=== PATIENT | female | born 1950 | race Caucasian/White ===

== ENCOUNTER 2018-10-28 21:51 | Emergency (ER) | payer MEDICARE, OTHER ==
[~2018-10-28] VITALS: Ht 170.2 cm; Wt 108.9 kg
[~2018-10-28 21:51] MED LIST: ACHD5005 PO; ALPR0.254 PO; AMIT25TA9 PO; AZAT50TA PO; CLOP75TA28 PO; CYCL5TAB PO; ETAN50PE SC; FOLI1TAB10 PO; IBUP-2055 PO; METO-333 PO; ONDA4TAB11 PO; POTA10TA10 PO; PRED5TAB PO; SALS500T16 PO; SODI473S7 TOP; TRAM50TA2 PO; ZOLP5TAB7 PO
--- OUTSIDE RECORDS SUMMARY | 2018-10-28 21:55 | XMS REPORT | Clinical Summary ---
Author Author [facility] Organization [facility] Address Unknown Phone Unavailable Care Team Providers Care Plastic Sheets Supervisor Name Role Phone Karissa Springer MD PCP Unavailable Ron Julian DO Unavailable Radha Nobles APRN Unavailable Source Comments Some departments are not documenting in the electronic medical record. If you d o not see the information that you expected, contact Release of Information in [facility] [employer] Information Management department at [phone] for further assistan ce in locating additional records.[facility] Allergies Comments Active Allergy Reactions Severity Noted Date unspecified Ampicillin SEE COMMENTS Low 02/15/2015 unknown Latex SEE COMMENTS Low 02/14/2015 unknown Morphine SEE COMMENTS Low 02/14/2015 unknown Sulfa (Sulfonamide SEE COMMENTS Low 02/14/2015 Antibiotics) Medications End Date Status Medication Sig Dispensed Refills Start Date Active amitriptyline (ELAVIL) 75 Take 75 mg by 0 mg tablet mouth at bedtime daily. Active ondansetron (ZOFRAN ODT) Take 4 mg by 0 4 mg rapid dissolve mouth every 8 tablet hours as needed for Nausea. Active metoprolol (LOPRESSOR) 25 Take 25 mg by 0 mg tablet mouth daily. Active zolpidem (AMBIEN) 5 mg Take 5 mg by 0 tablet mouth at bedtime as needed for Sleep. Active ALPRAZolam (XANAX) 0.25 Take 0.25 mg 0 mg tablet by mouth three times daily as needed. Active potassium chloride SR Take 10 mEq 0 (K-DUR) 10 mEq tablet by mouth daily with breakfast. Active clopiDOGrel (PLAVIX) 75 Take 75 mg by 0 mg tablet mouth daily. Active azaTHIOprine (IMURAN) 50 Take 100 mg 0 mg tablet by mouth twice daily. Active ibuprofen (MOTRIN) 200 mg Take 400 mg 0 tablet by mouth twice daily as needed for Pain. Active vitamins, multi Take 1 Tab by 0 w/minerals 27-0.4 mg tab mouth daily. Active cyclobenzaprine Take 5 mg by 0 (FLEXERIL) 5 mg tablet mouth three times daily as needed for Muscle Cramps. Active etanercept(+) (ENBREL) 50 Inject 50 mg 0 mg/mL (0.98 mL) syrg into area(s) injection as directed every 7 days. Active predniSONE (DELTASONE) 5 Take 5-10 mg 0 mg tablet by mouth daily. Active salsalate (DISALCID) 500 Take 1,500 mg 0 mg tablet by mouth twice daily. Active melatonin 3 mg tab Take 1 Tab by 30 Tab 0 mouth at 5 bedtime daily. Active senna (SENOKOT) 8.6 mg Take 1 Tab by 60 Tab 1 tablet mouth twice 5 daily. Active polyethylene glycol 3350 Take 17 g by 1 Bottle 1 (GLYCOLAX; MIRALAX) 17 mouth daily. 5 gram/dose powder To help support regular bowel movements. Active oxyCODONE (ROXICODONE) 5 Take 1 Tab by 60 Tab 0 mg tablet mouth every 6 5 hours as needed for Pain Active Problems Problem Noted Date Delirium 02/19/2015 Agitation 02/19/2015 Overview: Psych consulted. Hx anxiety. Parastomal hernia 02/15/2015 Small bowel ischemia 02/15/2015 Colostomy care 02/15/2015 GLADYS (acute kidney injury) 02/15/2015 SBO (small bowel obstruction) 02/14/2015 Family History Medical History Relation Name Comments Cancer Brother Cancer Father Coronary Artery Disease Father Dementia Mother Diabetes Type II Mother Hypertension Sister Relation Name Status Comments Brother Father Mother Sister Social History Date Tobacco Use Types Packs/Day Years Used Former Smoker Cigarettes Drinks/Week oz/Week Comments Alcohol Use 0 Standard drinks or equivalent 0.0 Not Asked Sex Assigned at Date Recorded Not on file Industry Job Start Date Occupation Not on file Not on file Not on file Travel End Travel History Travel Start No recent travel history available. Last Filed Vital Signs Reading Time Taken Comments Vital Sign 131/92 05/08/2015 1:10 PM DISTILLER Blood Pressure 87 05/08/2015 1:10 PM DISTILLER Pulse 36.4 C (97.6 F) 05/08/2015 1:10 PM DISTILLER Temperature 16 05/08/2015 1:10 PM DISTILLER Respiratory Rate 100% 03/02/2015 5:05 AM CDT Oxygen Saturation - - Inhaled Oxygen Concentration 97.5 kg (215 lb) 05/08/2015 1:10 PM DISTILLER Weight 170 cm (5' 6.93") 05/08/2015 1:10 PM DISTILLER Height 33.75 05/08/2015 1:10 PM DISTILLER Body Mass Index Plan of Treatment Health Maintenance Due Date Last Done Comments HEPATITIS C SCREENING 1950 PHYSICAL (COMPREHENSIVE) 1957 EXAM DTAP/TDAP VACCINES (1 - 1968 Tdap) BREAST CANCER SCREENING 1990 COLORECTAL CANCER 2000 SCREENING SHINGLES RECOMBINANT 2000 VACCINE (1 of 2) OSTEOPOROSIS 12/23/2015 SCREENING/MONITORING PNEUMONIA (PCV13/PPSV23) 12/23/2015 VACCINES (1 of 2 - PCV13) INFLUENZA VACCINE 02/01/2019 Results Not on filefrom Last 3 Months Insurance Type Payer Benefit Subscriber ID Effective Phone Address Plan / Dates Group [place] xxxxxxxxxxxx 2014-P PREF CARE resent BLUE HMO [place] xxxxxxxxxxxx 2014-P [facility] resent SOLUTIONS Medicare BCBS BCBS xxxxxxxxxxxx 2014-P SUPPLEMENT resent 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 needed
--- OUTSIDE RECORDS SUMMARY | 2018-10-28 21:56 | XMS REPORT | Continuity of Care Document ---
Author Organization Unknown Address Unknown Allergies Active Description Code Type Severity Reaction Onset Reported/Identified Relationship to Patient Clinical Status Yes ampi ampi Mild N/A 03/02/2015 Yes ampicillin [id number] Drug Allergy Unknown HIVES 03/04/2015 Yes latex [id number] Drug Allergy Unknown BLISTERS 03/04/2015 Yes morphine [id number] Drug Allergy Unknown N/A 03/04/2015 Yes Sulfa (Sulfonamide Antibiotics) [id number] Drug Allergy Unknown HIVES 03/04/2015 Medications There is no data. Problems Date Dx Coded Attending Type Code Diagnosis Diagnosed By 09/04/2014 HANSEL MORAN 278.00 Obesity, unspecified 03/12/2015 JENNIFER MOSHER, JEANETTE E Ot D50.0 03/12/2015 JENNIFER MOSHER, JEANETTE E Ot E66.9 03/12/2015 JENNIFER MOSHER, JEANETTE E Ot F41.1 03/12/2015 JENNIFER MOSHER, JEANETTE E Ot I10 03/12/2015 JENNIFER MOSHER, JEANETTE E Ot M06.9 03/12/2015 JENNIFER MOSHER, JEANETTE E Ot T81.31XD 03/12/2015 JENNIFER MOSHER JEANETTE E Ot Z48.815 03/12/2015 JENNIFER MOSHER JEANETTE E Ot Z68.31 03/12/2015 JENNIFER MOSHER, JEANETTE E Ot Z85.038 03/12/2015 JEANETTE RODRIGUEZ MD E Ot Z93.3 Procedures Code Description Performed By Performed On 12LEKG 12 LEAD EKG 09/04/2014 ABC CBC WO DIFF 09/04/2014 ABG ARTERIAL BLOOD GAS 09/04/2014 BLDCU BLOOD CULTURE 09/04/2014 BMETPP BASIC METABOLIC PANEL 09/04/2014 CBC CBC WITH DIFF 09/04/2014 CMETPP COMPREHENSIVE METABOLIC PANEL 09/04/[address] ANGIOGRAPHY CHEST ABD 09/04/[address] ANGIOGRAPHY CHEST AND CT ABD PELVIS W CONTRAST 09/04/2014 GLUPOC GLUCOSE POCT 09/04/2014 HIST SURGICAL PATHOLOGY 09/04/2014 MG MAGNESIUM SERUM 09/04/2014 PHOS PHOSPHORUS 09/04/2014 PREALB PREALBUMIN 09/04/2014 RESPL SPUTUM / RESPIRATORY CULTURE AND GRAM STAIN 09/04/2014 TRIG TRIGLYCERIDES 09/04/2014 UA URINALYSIS AUTOMATED W MICROSCOPY 09/04/2014 UCULT URINE CULTURE 09/04/2014 Results Test Result Range CBC WO DIFF - 08/23/14 14:36 WBC 10.7 10*3/uL 4.3-10.8 RBC 4.53 10*6/uL 4.20-5.40 HGB 12.2 g/dL 12.0-16.0 HCT 38.7 % 37-47 MCV 85 fL 81-99 MCH 27 pg 26-34 MCHC 32 g/dL 31-37 PLATELET COUNT 199 10*3/uL 150-400 RDWCV 13.9 % 11.5-14.5 COMPREHENSIVE METABOLIC PANEL - 08/23/14 14:36 POTASSIUM 3.8 mmol/L 3.5-5.1 CALCIUM 9.3 mg/dL 8.6-10.6 GLUCOSE 99 mg/dL 80-115 BUN 19 mg/dL 8-22 CREATININE 1.1 mg/dL 0.6-1.1 SODIUM 140 mmol/L 136-145 CHLORIDE 104 mmol/L 98-110 CO2 24 mmol/L 22-29 GFR ESTIMATED NOT AFR/AM 50 GFR ESTIMATED IF AFR/AM >60 ALT-SGPT 28 U/L 0-55 AST-SGOT 27 U/L 5-34 TOTAL PROTEIN,SERUM 6.8 g/dL 6-8.3 ALBUMIN 3.6 g/dL 3.6-5.3 ALKALINE PHOSPHATASE 128 U/L 40-150 TOTAL BILIRUBIN 0.9 mg/dL 0.2-1.2 ANION GAP 12 5-15 GLOBULIN, CALCULATED 3.2 g/dL A/G RATIO 1.1 ratio 1-1.8 BASIC METABOLIC PANEL - 08/24/14 05:46 POTASSIUM 4.4 mmol/L 3.5-5.1 CALCIUM 7.9 mg/dL 8.6-10.6 GLUCOSE 122 mg/dL 80-115 BUN 16 mg/dL 8-22 CREATININE 0.8 mg/dL 0.6-1.1 SODIUM 140 mmol/L 136-145 CHLORIDE 105 mmol/L 98-110 CO2 26 mmol/L 22-29 GFR ESTIMATED NOT AFR/AM >60 GFR ESTIMATED IF AFR/AM >60 ANION GAP 9 5-15 CBC WITH DIFF - 08/24/14 05:46 WBC 9.2 10*3/uL 4.3-10.8 RBC 3.53 10*6/uL 4.20-5.40 HGB 10.0 g/dL 12.0-16.0 HCT 30.5 % 37-47 MCV 86 fL 81-99 MCH 28 pg 26-34 MCHC 33 g/dL 31-37 PLATELET COUNT 157 10*3/uL 150-400 RDWCV 13.7 % 11.5-14.5 DIFF TYPE MANUAL DIFF SEG NEUTROPHILS 68 % 36-66 BAND NEUTROPHILS 27 % 5-11 LYMPHOCYTES 3 % 24-44 NEUTROPHILS, ABSOLUTE 8.7 10*3/uL 1.55-7.13 LYMPHOCYTES, ABSOLUTE 0.3 10*3/uL 1.0-4.8 RBC MORPHOLOGY SEE NOTES PLATELET ESTIMATE SEE NOTES MONOCYTES 2 % 1-10 MONOCYTES, ABSOLUTE 0.2 10*3/uL 0.4-1.08 CBC WO DIFF - 08/25/14 05:37 WBC 9.3 10*3/uL 4.0-10.8 RBC 2.96 10*6/uL 4.20-5.40 HGB 8.6 g/dL 12.0-16.0 HCT 26.5 % 37-47 MCV 90 fL 81-99 MCH 29 pg 26-34 MCHC 32 g/dL 31-37 PLATELET COUNT 109 10*3/uL 150-400 RDWCV 14.2 % 11.5-14.5 BASIC METABOLIC PANEL - 08/25/14 05:37 POTASSIUM 4.7 mmol/L 3.5-5.1 CALCIUM 7.8 mg/dL 8.6-10.6 GLUCOSE 82 mg/dL 80-115 BUN 26 mg/dL 8-22 CREATININE 2.1 mg/dL 0.6-1.1 SODIUM 135 mmol/L 136-145 CHLORIDE 106 mmol/L 98-110 CO2 18 mmol/L 22-29 GFR ESTIMATED NOT AFR/AM 24 GFR ESTIMATED IF AFR/AM 29 ANION GAP 11 5-15 BASIC METABOLIC PANEL - 08/25/14 15:54 POTASSIUM 4.3 mmol/L 3.5-5.1 CALCIUM 8.0 mg/dL 8.6-10.6 GLUCOSE 97 mg/dL 80-115 BUN 20 mg/dL 8-22 CREATININE 1.3 mg/dL 0.6-1.1 SODIUM 134 mmol/L 136-145 CHLORIDE 106 mmol/L 98-110 CO2 19 mmol/L 22-29 GFR ESTIMATED NOT AFR/AM 41 GFR ESTIMATED IF AFR/AM 50 ANION GAP 9 5-15 CBC WO DIFF - 08/26/14 07:11 WBC 11.3 10*3/uL 4.0-10.8 RBC 3.27 10*6/uL 4.20-5.40 HGB 9.3 g/dL 12.0-16.0 HCT 29.1 % 37-47 MCV 89 fL 81-99 MCH 28 pg 26-34 MCHC 32 g/dL 31-37 PLATELET COUNT 108 10*3/uL 150-400 RDWCV 14.3 % 11.5-14.5 BASIC METABOLIC PANEL - 08/26/14 07:11 POTASSIUM 3.8 mmol/L 3.5-5.1 CALCIUM 8.2 mg/dL 8.6-10.6 GLUCOSE 88 mg/dL 80-115 BUN 11 mg/dL 8-22 CREATININE 0.7 mg/dL 0.6-1.1 SODIUM 137 mmol/L 136-145 CHLORIDE 106 mmol/L 98-110 CO2 20 mmol/L 22-29 GFR ESTIMATED NOT AFR/AM >60 GFR ESTIMATED IF AFR/AM >60 ANION GAP 11 5-15 BLOOD CULTURE - 08/26/14 12:24 SOURCE SOURCE: BLOOD REQUISITION NOTE REQUISITION NOTE: PERIPHERAL BLOOD CULTURE RESULTS CULTURE RESULTS: NO GROWTH 5 DAYS REPORT STATUS REPORT STATUS: 08/31/2014 FINAL BLOOD CULTURE - 08/26/14 12:40 SOURCE SOURCE: BLOOD REQUISITION NOTE REQUISITION NOTE: LOW VOLUME CULTURE RESULTS CULTURE RESULTS: NO GROWTH 5 DAYS REPORT STATUS REPORT STATUS: 08/31/2014 FINAL ARTERIAL BLOOD GAS - 08/26/14 17:48 METHEMOGLOBIN 0.2 % 0-3.0 PH 7.435 7.350-7.450 PCO2 35.6 mmHg 35.0-45.0 PO2 154.2 mmHg 80.0-90.0 BICARB (ART) 23.4 mmol/L 22.0-26.0 BASE EXCESS -0.5 mmol/L -2.0-2.0 OXY HEMOGLOBIN 98.1 % 94.0-99.0 CO HEMOGLOBIN (ART) 0.5 % 0-3.0 O2 CONTENT 15.6 mL/dL 15.0-23.0 CO2 CONTENT 24.5 mmol/L 24.0-28.0 DRAW TIME (ART) 08/26/2014 17:48 ANALYZE TIME (ART) 08/26/2014 17:48 URINALYSIS AUTOMATED W MICROSCOPY - 08/26/14 18:46 SPECIMEN BAGGED URINE COLOR YELLOW APPEARANCE CLEAR CLEAR SPECIFIC GRAVITY 1.046 1.005-1.030 PH, URINE 6.5 5.0-9.0 PROTEIN SMALL mg/dL NEGATIVE GLUC NEGATIVE mg/dL NEGATIVE KETONES MODERATE mg/dL NEGATIVE BILIRUBIN NEGATIVE NEGATIVE BLOOD LARGE NEGATIVE NITRITE NEGATIVE NEGATIVE UROBILINOGEN NORMAL mg/dL NORMAL LEUKOCYTE ESTERASE NEGATIVE NEGATIVE WBC'S 2 [HPF] 0-4 RBC'S >50 [HPF] 0-1 MUCUS RARE [LPF] ACETONE MODERATE URINE CULTURE - 08/26/14 18:47 SOURCE SOURCE: CATH GILLETTE REQUISITION NOTE REQUISITION NOTE: NONE CULTURE RESULTS CULTURE RESULTS: NO FURTHER WORKUP REPORT STATUS REPORT STATUS: 08/28/2014 FINAL CBC WO DIFF - 08/26/14 19:29 WBC 12.1 10*3/uL 4.0-10.8 RBC 3.48 10*6/uL 4.20-5.40 HGB 9.8 g/dL 12.0-16.0 HCT 31.0 % 37-47 MCV 89 fL 81-99 MCH 28 pg 26-34 MCHC 32 g/dL 31-37 PLATELET COUNT 109 10*3/uL 150-400 RDWCV 14.0 % 11.5-14.5 BASIC METABOLIC PANEL - 08/26/14 19:29 POTASSIUM 4.0 mmol/L 3.5-5.1 CALCIUM 8.4 mg/dL 8.6-10.6 GLUCOSE 88 mg/dL 80-115 BUN 10 mg/dL 8-22 CREATININE 0.7 mg/dL 0.6-1.1 SODIUM 139 mmol/L 136-145 CHLORIDE 106 mmol/L 98-110 CO2 22 mmol/L 22-29 GFR ESTIMATED NOT AFR/AM >60 GFR ESTIMATED IF AFR/AM >60 ANION GAP 11 5-15 BASIC METABOLIC PANEL - 08/27/14 05:12 POTASSIUM 4.2 mmol/L 3.5-5.1 CALCIUM 8.1 mg/dL 8.6-10.6 GLUCOSE 79 mg/dL 80-115 BUN 10 mg/dL 8-22 CREATININE 0.7 mg/dL 0.6-1.1 SODIUM 138 mmol/L 136-145 CHLORIDE 103 mmol/L 98-110 CO2 23 mmol/L 22- GFR ESTIMATED NOT AFR/AM >60 GFR ESTIMATED IF AFR/AM >60 ANION GAP 12 5-15 CBC WO DIFF - 08/27/14 05:12 WBC 9.8 10*3/uL 4.0-10.8 RBC 3.23 10*6/uL 4.20-5.40 HGB 9.2 g/dL 12.0-16.0 HCT 28.7 % 37-47 MCV 89 fL 81-99 MCH 29 pg 26-34 MCHC 32 g/dL 31-37 PLATELET COUNT 100 10*3/uL 150-400 RDWCV 13.9 % 11.5-14.5 GLUCOSE POCT - 08/27/14 21:07 GLUCOSE BY METER 82 mg/dL 70-115 BASIC METABOLIC PANEL - 08/28/14 08:28 POTASSIUM 3.3 mmol/L 3.5-5.1 CALCIUM 7.9 mg/dL 8.6-10.6 GLUCOSE 85 mg/dL 80-115 BUN 11 mg/dL 8-22 CREATININE 0.6 mg/dL 0.6-1.1 SODIUM 140 mmol/L 136-145 CHLORIDE 102 mmol/L 98-110 CO2 24 mmol/L - GFR ESTIMATED NOT AFR/AM >60 GFR ESTIMATED IF AFR/AM >60 ANION GAP 14 5-15 COMPREHENSIVE METABOLIC PANEL - 08/30/14 04:00 POTASSIUM 3.9 mmol/L 3.5-5.1 CALCIUM 8.6 mg/dL 8.6-10.6 GLUCOSE 107 mg/dL 80-115 BUN 16 mg/dL 8-22 CREATININE 0.6 mg/dL 0.6-1.1 SODIUM 140 mmol/L 136-145 CHLORIDE 102 mmol/L 98-110 CO2 26 mmol/L - GFR ESTIMATED NOT AFR/AM >60 GFR ESTIMATED IF AFR/AM >60 ALT-SGPT 19 U/L 0-55 AST-SGOT 28 U/L 5-34 TOTAL PROTEIN,SERUM 5.4 g/dL 6-8.3 ALBUMIN 2.9 g/dL 3.6-5.3 ALKALINE PHOSPHATASE 67 U/L 40-150 TOTAL BILIRUBIN 0.5 mg/dL 0.2-1.2 ANION GAP 12 5-15 GLOBULIN, CALCULATED 2.5 g/dL A/G RATIO 1.2 ratio 1-1.8 CBC WITH DIFF - 08/30/14 09:27 WBC 7.9 10*3/uL 4.3-10.8 RBC 3.41 10*6/uL 4.20-5.40 HGB 9.1 g/dL 12.0-16.0 HCT 29.4 % 37-47 MCV 86 fL 81-99 MCH 27 pg 26-34 MCHC 31 g/dL 31-37 PLATELET COUNT 127 10*3/uL 150-400 RDWCV 14.0 % 11.5-14.5 DIFF TYPE AUTOMATED DIFF NEUTROPHIL % 84 % 36-66 LYMPHOCYTE % 12 % 24-44 MONOCYTE % 3 % 1-10 EOSINOPHIL % 2 % 0-6 BASOPHIL % 0 % 0-2 ABS. NEUTROPHILS 6.6 10*3/uL 1.55-7.13 ABS. LYMPHOCYTES 0.9 10*3/uL 1.0-4.8 ABS. MONOCYTES 0.2 10*3/uL 0.4-1.08 ABS. EOSINOPHILS 0.1 10*3/uL 0.0-0.65 ABS. BASOPHILS 0.0 10*3/uL 0.0-0.11 ABSOLUTE NUCLEATED RBC 0.00 10*3/uL PERCENT NUCLEATED RBC 0 MAGNESIUM SERUM - 08/30/14 09:35 MAGNESIUM 2.1 mg/dL 1.4-2.1 PHOSPHORUS - 08/30/14 09:35 PHOSPHORUS 3.5 mg/dL 2.3-4.7 TRIGLYCERIDES - 08/30/14 09:35 TRIGLYCERIDES 150 mg/dL 20-170 PREALBUMIN - 08/30/14 09:35 PREALBUMIN 11.0 mg/dL 14.0-37.0 GLUCOSE POCT - 08/31/14 00:01 GLUCOSE BY METER 92 mg/dL 70-115 GLUCOSE POCT - 08/31/14 06:22 GLUCOSE BY METER 82 mg/dL 70-115 CBC WO DIFF - 08/31/14 06:22 WBC 6.5 10*3/uL 4.0-10.8 RBC 3.60 10*6/uL 4.20-5.40 HGB 10.3 g/dL 12.0-16.0 HCT 31.8 % 37-47 MCV 88 fL 81-99 MCH 29 pg 26-34 MCHC 32 g/dL 31-37 PLATELET COUNT 106 10*3/uL 150-400 RDWCV 14.3 % 11.5-14.5 BASIC METABOLIC PANEL - 08/31/14 06:22 POTASSIUM 3.9 mmol/L 3.5-5.1 CALCIUM 8.7 mg/dL 8.6-10.6 GLUCOSE 99 mg/dL 80-115 BUN 15 mg/dL 8-22 CREATININE 0.7 mg/dL 0.6-1.1 SODIUM 140 mmol/L 136-145 CHLORIDE 102 mmol/L 98-110 CO2 27 mmol/L 22- GFR ESTIMATED NOT AFR/AM >60 GFR ESTIMATED IF AFR/AM >60 ANION GAP 11 5-15 MAGNESIUM SERUM - 08/31/14 06:22 MAGNESIUM 2.0 mg/dL 1.4-2.1 PHOSPHORUS - 08/31/14 06:22 PHOSPHORUS 3.5 mg/dL 2.3-4.7 GLUCOSE POCT - 08/31/14 12:00 GLUCOSE BY METER 120 mg/dL 70-115 GLUCOSE POCT - 08/31/14 18:04 GLUCOSE BY METER 88 mg/dL 70-115 GLUCOSE POCT - 08/31/14 23:57 GLUCOSE BY METER 94 mg/dL 70-115 BASIC METABOLIC PANEL - 09/01/14 04:00 POTASSIUM 3.8 mmol/L 3.5-5.1 CALCIUM 8.6 mg/dL 8.6-10.6 GLUCOSE 99 mg/dL 80-115 BUN 15 mg/dL 8-22 CREATININE 0.6 mg/dL 0.6-1.1 SODIUM 137 mmol/L 136-145 CHLORIDE 102 mmol/L 98-110 CO2 28 mmol/L GFR ESTIMATED NOT AFR/AM >60 GFR ESTIMATED IF AFR/AM >60 ANION GAP 7 5-15 MAGNESIUM SERUM - 09/01/14 04:00 MAGNESIUM 2.1 mg/dL 1.4-2.1 PHOSPHORUS - 09/01/14 04:00 PHOSPHORUS 3.9 mg/dL 2.3-4.7 GLUCOSE POCT - 09/01/14 12:18 GLUCOSE BY METER 75 mg/dL 70-115 GLUCOSE POCT - 09/01/14 17:54 GLUCOSE BY METER 70 mg/dL 70-115 GLUCOSE POCT - 09/02/14 01:29 GLUCOSE BY METER 133 mg/dL 70-115 BASIC METABOLIC PANEL - 09/02/14 06:00 POTASSIUM 3.8 mmol/L 3.5-5.1 CALCIUM 8.8 mg/dL 8.6-10.6 GLUCOSE 103 mg/dL 80-115 BUN 21 mg/dL 8-22 CREATININE 0.7 mg/dL 0.6-1.1 SODIUM 140 mmol/L 136-145 CHLORIDE 98 mmol/L 98-110 CO2 30 mmol/L 22-29 GFR ESTIMATED NOT AFR/AM >60 GFR ESTIMATED IF AFR/AM >60 ANION GAP 12 5-15 MAGNESIUM SERUM - 09/02/14 06:00 MAGNESIUM 2.3 mg/dL 1.4-2.1 PHOSPHORUS - 09/02/14 06:00 PHOSPHORUS 4.1 mg/dL 2.3-4.7 GLUCOSE POCT - 09/02/14 06:25 GLUCOSE BY METER 98 mg/dL 70-115 GLUCOSE POCT - 09/02/14 12:26 GLUCOSE BY METER 90 mg/dL 70-115 GLUCOSE POCT - 09/02/14 18:18 GLUCOSE BY METER 92 mg/dL 70-115 GLUCOSE POCT - 09/03/14 00:18 GLUCOSE BY METER 116 mg/dL 70-115 GLUCOSE POCT - 09/03/14 06:16 GLUCOSE BY METER 118 mg/dL 70-115 GLUCOSE POCT - 09/03/14 15:03 GLUCOSE BY METER 95 mg/dL 70-115 GLUCOSE POCT - 09/03/14 17:44 GLUCOSE BY METER 107 mg/dL 70-115 GLUCOSE POCT - 09/04/14 00:03 GLUCOSE BY METER 131 mg/dL 70-115 GLUCOSE POCT - 09/04/14 06:32 GLUCOSE BY METER 98 mg/dL 70-115 COMPREHENSIVE METABOLIC PANEL - 09/04/14 06:53 POTASSIUM 3.1 mmol/L 3.5-5.1 CALCIUM 8.8 mg/dL 8.6-10.6 GLUCOSE 105 mg/dL 80-115 BUN 39 mg/dL 8-22 CREATININE 1.0 mg/dL 0.6-1.1 SODIUM 135 mmol/L 136-145 CHLORIDE 92 mmol/L 98-110 CO2 32 mmol/L 22-29 GFR ESTIMATED NOT AFR/AM 56 GFR ESTIMATED IF AFR/AM >60 ALT-SGPT 19 U/L 0-55 AST-SGOT 25 U/L 5-34 TOTAL PROTEIN,SERUM 6.5 g/dL 6-8.3 ALBUMIN 3.3 g/dL 3.6-5.3 ALKALINE PHOSPHATASE 89 U/L 40-150 TOTAL BILIRUBIN 0.5 mg/dL 0.2-1.2 ANION GAP 11 5-15 GLOBULIN, CALCULATED 3.2 g/dL A/G RATIO 1.0 ratio 1-1.8 MAGNESIUM SERUM - 09/04/14 06:53 MAGNESIUM 2.4 mg/dL 1.4-2.1 PHOSPHORUS - 09/04/14 06:53 PHOSPHORUS 4.8 mg/dL 2.3-4.7 TRIGLYCERIDES - 09/04/14 06:53 TRIGLYCERIDES 175 mg/dL 20-170 FOLATE (FOLIC ACID) - 08/05/18 12:24 FOLATE, SERUM >24.0 ng/mL NRG TSH - 08/05/18 12:24 TSH 1.40 mIU/L 0.40-4.50 TEST AUTHORIZATION - 08/05/18 12:24 TEST NAME: FOLATE, SERUM IRON, TIBC AND NRG TEST CODE: [id number] NRG CLIENT CONTACT: /PARVEEN Hancock [facility] NRG REPORT ALWAYS MESSAGE SIGNATURE NRG COMMENT NRG ANEMIA PANEL - 09/03/18 13:14 IRON, TOTAL 107 mcg/dL 45-160 FERRITIN 52 ng/mL 20-288 IRON BINDING CAPACITY 316 mcg/dL (calc) 250-450 % SATURATION 34 % (calc) 11-50 CMP - 09/03/18 13:14 GLUCOSE 99 mg/dL 65-99 UREA NITROGEN (BUN) 15 mg/dL 7-25 CREATININE 0.99 mg/dL 0.50-0.99 eGFR NON-AFR. ERITREAN 59 mL/min/1.73m2 > OR=60 eGFR 68 mL/min/1.73m2 > OR=60 BUN/CREATININE RATIO NOT APPLICABLE (calc) 6-22 SODIUM 141 mmol/L 135-146 POTASSIUM 3.9 mmol/L 3.5-5.3 CHLORIDE 103 mmol/L 98-110 CARBON DIOXIDE 31 mmol/L 20-32 CALCIUM 9.1 mg/dL 8.6-10.4 PROTEIN, TOTAL 7.1 g/dL 6.1-8.1 ALBUMIN 4.1 g/dL 3.6-5.1 GLOBULIN 3.0 g/dL (calc) 1.9-3.7 ALBUMIN/GLOBULIN RATIO 1.4 (calc) 1.0-2.5 BILIRUBIN, TOTAL 0.6 mg/dL 0.2-1.2 ALKALINE PHOSPHATASE 88 U/L 33-130 AST 19 U/L 10-35 ALT 9 U/L 6-29 FOLATE (FOLIC ACID) - 09/03/18 13:14 FOLATE, SERUM >24.0 ng/mL NRG Encounters ACCT No. Visit Date/Time Discharge Status Pt. Type Provider Facility Loc./Unit Complaint [id number] 09/16/2018 10:30:00 09/16/2018 23:59:59 [id number] 09/03/2018 13:00:00 Document Registration [id number] 08/05/2018 11:20:00 Document Registration [id number] 08/23/2014 14:04:00 09/04/2014 10:46:00 DIS Inpatient [facility] F7MED [id number] 07/26/2014 09:28:00 07/26/2014 12:53:00 DIS Inpatient GABBY TURNER [facility] FEN [id number] 06/02/2014 10:20:43 06/02/2014 23:59:00 [facility] [id number] 01/11/2014 09:11:14 01/11/2014 15:19:00 DIS Outpatient [facility] FCT [id number] 01/11/2014 09:00:06 01/11/2014 09:10:00 DIS Outpatient GUNNAR SUAREZBOOMAR[facility] FOPMO [id number] 12/09/2013 10:27:00 12/10/2013 09:57:00 DIS Inpatient [facility] FPSURG [id number] 03/02/2015 14:28:00 03/12/2015 14:45:00 DIS Inpatient JENNIFER MOSHER, JEANETTE Neely [facility] IRF
[2018-10-28] MEDS ORDERED: ONDANSETRON 4 MG/2 ML (SDV) Z0FRAN IVP ONE (22:15)
[2018-10-28] MEDS ORDERED: NS IV 1000 ML 1,000 ML IV SCH (22:15)
[2018-10-28 22:21] LABS: BASOPHILS % (AUTO) 0 % (0-10); EOSINOPHILS % (AUTO) 2 % (0-10); HEMATOCRIT 33 % (35-52); HEMOGLOBIN 10.6 G/DL (11.5-16.0); LYMPHOCYTES % (AUTO) 18 % (12-44); MEAN CORPUSCULAR HEMOGLOBIN 32 PG (25-34); MEAN CORPUSCULAR HGB CONC 33 G/DL (32-36); MEAN CORPUSCULAR VOLUME 99 FL (80-99); MEAN PLATELET VOLUME 10.3 FL (7.4-10.4); MONOCYTES % (AUTO) 7 % (0-12); NEUTROPHILS % (AUTO) 72 % (42-75); PLATELET COUNT 164 10^3/uL (130-400); RED CELL DISTRIBUTION WIDTH 15.2 % (10.0-14.5); WHITE BLOOD COUNT 5.1 10^3/uL (4.3-11.0)
[2018-10-28 22:22] LABS: EOSINOPHILS # (AUTO) 0.1 10^3/uL (0.0-0.3); LYMPHOCYTES # (AUTO) 0.9 X 10^3 (1.0-4.0); MONOCYTES # (AUTO) 0.4 X 10^3 (0.0-1.0); NEUTROPHILS # (AUTO) 3.7 X 10^3 (1.8-7.8)
[2018-10-28 22:25] VITALS: BP_SYST 125; BP_SYST 94; BP_DIAS 68; BP_DIAS 73
--- NOTE | 2018-10-28 22:26 | NUR ---
Orthostatic Vitals obtained. Pt. was able to tolerate supine and seated position however was unable to maintain a standing position without feeling increasingly weak.
--- NOTE | 2018-10-28 22:26 | ED General ---
General Chief Complaint: Dizziness/Syncope Stated Complaint: ANXIETY, VERTIGO, VOMITING Nursing Triage Note: Patient advises she has been feeling anxious since approximately 10am this morning secondary to dizziness. She advises that she has had issues with vertigo in the past and states that she began vomiting this evening which prompted her to call EMS. Nursing Sepsis Screen: No Definite Risk Source of Information: Patient, EMS History of Present Illness Date Seen by Provider: Oct 28, 2018 Time Seen by Provider: 21:51 Initial Comments Patient is a 67-year-old female presenting with complaints of dizziness that has been present since around 11 AM. She reports that this feels similar to when she has had vertigo in the past. She had tried taking some old Xanax pills that she had since it hadn't helped with her vertigo in the past. She thought that it has helped some at home but this evening she was feeling worse again. The dizziness and vertigo seems to be worse when she stands up. She also has some dizziness just laying in the bed though. She states that she has not had any fever or chills. She has had similar symptoms in the past and been told that she had fluid in her ears. She started having nausea and vomiting this evening as well. She does feel anxious with this and is concerned she might be having another st roke. She denies having pain anywhere. Allergies and Home Medications Allergies Coded Allergies: Sulfa (Sulfonamide Antibiotics) (Verified Allergy, Unknown, HIVES, 10/28/18) ampicillin (Verified Allergy, Unknown, HIVES, 10/28/18) latex (Verified Allergy, Unknown, BLISTERS, 10/28/18) morphine (Verified Allergy, Unknown, 10/28/18) Home Medications Alprazolam 0.25 Mg Tablet, 0.25 MG PO TID PRN for ANXIETY, (Reported) Amitriptyline HCl 25 Mg Tablet, 75 MG PO HS, (Reported) Azathioprine 50 Mg Tablet, 100 MG PO BID, (Reported) Ciprofloxacin HCl 250 Mg Tablet, 250 MG PO BID Prescribed by: BERNA MOE on 10/29/18 0126 Clopidogrel Bisulfate 75 Mg Tablet, 75 MG PO DAILY, (Reported) Cyclobenzaprine HCl 5 Mg Tablet, 5 MG PO TID PRN for MUSCLE CRAMPS, (Reported) Ibuprofen 200 Mg Tablet, 400 MG PO BID PRN for PAIN, (Reported) Meclizine HCl 25 Mg Tab.chew, 25 MG PO TID PRN for DIZZINESS Prescribed by: BERNA MOE on 10/29/18 0126 Metoprolol Tartrate 25 Mg Tablet, 25 MG PO DAILY, (Reported) Potassium Chloride 10 Meq Tablet.er, 10 MEQ PO DAILY, (Reported) WITH BREAKFAST Prednisone 5 Mg Tablet, 5-10 MG PO DAILY, (Reported) PATIENT CAN TAKE UP TO 2 TABS DEPENDING ON HOW SHE IS FEELING (PAIN). HAD BEEN OFF FOR APPROX. 3 WEEKS. Patient Home Medication List Home Medication List Reviewed: Yes Review of Systems Review of Systems Constitutional: No chills; dizziness; No fever, No weakness EENTM: No ear discharge, No hearing loss, No ear pain, No blurred vision, No double vision, No dental problems, No epistaxis, No nose congestion Respiratory: No cough, No dyspnea on exertion, No short of breath Cardiovascular: No chest pain, No palpitations Gastrointestinal: No abdominal pain; nausea, vomiting (with the dizziness tonight) Genitourinary: No dysuria, No frequency Musculoskeletal: no symptoms reported Skin: no symptoms reported Psychiatric/Neurological: Anxiety; Denies Headache Hematologic/Lymphatic: No Symptoms Reported Past Nmmokiv-Cbobno-Qtswwr Hx Past Med/Social Hx: Reviewed Nursing Past Med/Soc Hx Patient Social History Alcohol Use: Denies Use Recreational Drug Use: No Smoking Status: Never a Smoker Recent Foreign Travel: No Contact w/Someone Who Travel: No Recent Infectious Disease Expo: No Recent Hopitalizations: No Immunizations Up To Date Date of Pneumonia Vaccine: September 28, 2014 Date of Influenza Vaccine: Feb 05, 2015 Seasonal Allergies Seasonal Allergies: No Past Medical History Surgeries: Yes (colostomy) Respiratory: No Currently Using CPAP: No Currently Using BIPAP: No Cardiac: Yes Neurological: Yes Reproductive Disorders: Yes HIV/AIDS: No Gastrointestinal: Yes Abdominal Hernia, Gastroesophageal Reflux, Gastrointestinal Bleed, Chronic Diarrhea, Polyps Musculoskeletal: Yes Arthritis, Rheumatoid Arthritis Endocrine: No Cancer: Yes (hysterectomyCA) Colon Psychosocial: Yes Anxiety Integumentary: No Blood Disorders: No Adverse Reaction/Blood Tranf: No Family Medical History Abdominal aortic aneurysm Alcoholism G8 BROTHER (22) G8 BROTHER (17) Alzheimer's disease 19 MOTHER (195 2012) Cataracts 19 MOTHER (2010) Deafness or hearing loss 19 MOTHER (HARD OF HEARING ) Dementia 19 MOTHER Diabetes mellitus 19 FATHER 19 MOTHER Drug abuse G8 BROTHER G8 BROTHER Gastroenteritis 19 MOTHER Headache disorder 19 MOTHER G8 BROTHER Hypercholesterolemia G8 SISTER Myocardial infarction 19 FATHER (IN HIS 60) Osteoporosis 19 MOTHER Prostate cancer 19 FATHER Physical Exam Vital Signs Vital Signs - First Documented 10/28/18 22:05 Temp 96.9 Pulse 80 Resp 18 B/P (MAP) 127/77 (94) Pulse Ox 94 O2 Delivery Room Air Capillary Refill : Less Than 3 Seconds Height, Weight, BMI Height: 5'7.00" Weight: 240lbs. 12.8oz. 108.387027fg; BMI Method:Stated General Appearance: No Apparent Distress, WD/WN HEENT: PERRL/EOMI, TMs Normal, Pharynx Normal Neck: Full Range of Motion, Non Tender, Supple Respiratory: Chest Non Tender, Lungs Clear, Normal Breath Sounds Cardiovascular: Regular Rate, Rhythm, No Murmur, Normal Peripheral Pulses Gastrointestinal: No Pulsatile Mass, Non Tender, Soft Extremity: Normal Capillary Refill, Normal Inspection, Normal Range of Motion, Non Tender, No Calf Tenderness Neurologic/Psychiatric: Alert, Oriented x3 Skin: Normal Color, Warm/Dry Progress/Results/Core Measures Suspected Sepsis Recent Fever Within 48 Hours: No Infection Criteria Present: None New/Unexplained Altered Menta: No Sepsis Screen: No Definite Risk SIRS Temperature:96.9 Pulse: 80 Respiratory Rate: 18 Laboratory Tests 10/28/18 21:56: White Blood Count 5.1 Blood Pressure 127 /77 Mean: 94 Laboratory Tests 10/28/18 21:56: Creatinine 0.90, Platelet Count 164, Total Bilirubin 0.7 Results/Orders Lab Results Laboratory Tests Test 10/28/18 21:56 10/28/18 23:39 Range/Units White Blood Count 5.1 4.3-11.0 10^3/uL Red Blood Count 3.27 L 4.35-5.85 10^6/uL Hemoglobin 10.6 L 11.5-16.0 G/DL Hematocrit 33 L 35-52 % Mean Corpuscular Volume 99 80-99 FL Mean Corpuscular Hemoglobin 32 25-34 PG Mean Corpuscular Hemoglobin Concent 33 32-36 G/DL Red Cell Distribution Width 15.2 H 10.0-14.5 % Platelet Count 164 130-400 10^3/uL Mean Platelet Volume 10.3 7.4-10.4 FL Neutrophils (%) (Auto) 72 42-75 % Lymphocytes (%) (Auto) 18 12-44 % Monocytes (%) (Auto) 7 0-12 % Eosinophils (%) (Auto) 2 0-10 % Basophils (%) (Auto) 0 0-10 % Neutrophils # (Auto) 3.7 1.8-7.8 X 10^3 Lymphocytes # (Auto) 0.9 L 1.0-4.0 X 10^3 Monocytes # (Auto) 0.4 0.0-1.0 X 10^3 Eosinophils # (Auto) 0.1 0.0-0.3 10^3/uL Basophils # (Auto) 0.0 0.0-0.1 10^3/uL Sodium Level 138 135-145 MMOL/L Potassium Level 3.5 L 3.6-5.0 MMOL/L Chloride Level 98 98-107 MMOL/L Carbon Dioxide Level 22 21-32 MMOL/L Anion Gap 18 H 5-14 MMOL/L Blood Urea Nitrogen 22 H 7-18 MG/DL Creatinine 0.90 0.60-1.30 MG/DL Estimat Glomerular Filtration Rate > 60 BUN/Creatinine Ratio 24 Glucose Level 133 H 70-105 MG/DL Calcium Level 9.5 8.5-10.1 MG/DL Corrected Calcium 9.5 8.5-10.1 MG/DL Total Bilirubin 0.7 0.1-1.0 MG/DL Aspartate Amino Transf (AST/SGOT) 28 5-34 U/L Alanine Aminotransferase (ALT/SGPT) 11 0-55 U/L Alkaline Phosphatase 91 40-136 U/L Total Protein 7.5 6.4-8.2 GM/DL Albumin 4.0 3.2-4.5 GM/DL Urine Color YELLOW Urine Clarity CLEAR Urine pH 5.5 5-9 Urine Specific Bishop >1.030 1.016-1.022 Urine Protein NEGATIVE NEGATIVE Urine Glucose (UA) NEGATIVE NEGATIVE Urine Ketones TRACE H NEGATIVE Urine Nitrite NEGATIVE NEGATIVE Urine Bilirubin NEGATIVE NEGATIVE Urine Urobilinogen 0.2 NORMAL MG/DL Urine Leukocyte Esterase 1+ H NEGATIVE Urine RBC (Auto) NEGATIVE NEGATIVE Urine RBC NONE /HPF Urine WBC 10-25 H /HPF Urine Crystals NONE /LPF Urine Bacteria FEW H /HPF Urine Casts NONE /LPF Urine Mucus MODERATE H /LPF Urine Culture Indicated YES My Orders Orders - BERNA MOE MD Cbc With Automated Diff (10/28/18 22:07) Comprehensive Metabolic Panel (10/28/18 22:07) Chest 1 View Ap/Pa Only (10/28/18 22:07) Ekg Tracing (10/28/18 22:07) Ed Iv/Invasive Line Start (10/28/18 22:07) Monitor-Rhythm Ecg Trace Only (10/28/18 22:07) Ct Head Wo (10/28/18 22:07) Ns Iv 1000 Ml (Sodium Chloride 0.9%) (10/28/18 22:15) Ua Culture If Indicated (10/28/18 22:07) Ondansetron Injection (Zofran Injectio (10/28/18 22:15) Urine Culture (10/28/18 23:39) Ceftriaxone For Iv Use (Rocephin For I (10/29/18 01:12) Meclizine Tablet (Antivert Tablet) (10/29/18 01:12) Medications Given in ED Current Medications Medications Dose Ordered Sig/Mar Route Start Time Stop Time Status Last Admin Dose Admin Ondansetron HCl 4 mg ONCE ONCE IVP 10/28/18 22:15 10/28/18 22:16 DC 10/28/18 22:18 4 MG Vital Signs/I&O 10/28/18 10/28/18 10/29/18 22:05 22:25 01:36 Temp 96.9 Pulse 80 82 75 83 Resp 18 14 B/P (MAP) 127/77 (94) 125/68 (87) 116/95 (102) 94/73 (80) Pulse Ox 94 98 O2 Delivery Room Air Room Air Capillary Refill : Less Than 3 Seconds Blood Pressure Mean: 94 Progress Note #1: Time: 22:04 Progress Note Will check basic labs as well as CT of her head to evaluate for her sinus disease versus stroke or mass. Check basic labs and urine to evaluate for electrolyte imbalance or other reasons for her dizziness. We will try giving IV fluids for hydration and Zofran for her nausea. Progress Note #2: Progress Note No acute findings on the CT scan of her head. Basic labs were not showing any acute significant abnormality. Patient was feeling a little bit better after fl uids and treatment in the ED. She has still unable to provide a urine sample for urinalysis. Progress Note #3: Progress Note Patient continued to show improvement during her ED stay. She was finally able to provide a urine sample which did show some findings for UTI. Discussed results with the patient and will start antibiotics for UTI. We'll also treat with meclizine for possible vertigo symptoms. Encouraged to push fluids for dehydration. Counseled on follow-up and return precautions. We will have her check back with the clinic next week. ECG Initial ECG Impression Date: Oct 28, 2018 Initial ECG Impression Time: 21:58 Initial ECG Rate: 80 Initial ECG Rhythm: Normal Sinus Initial ECG Intervals: Normal Comment Normal sinus rhythm with a heart rate of 80 bpm. AK interval 186 ms. QT interval is 470 ms and a QT corrected interval 470 ms. She has no acute ST elevation. There is no prior tracing immediately available for comparison. 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 Otherwise unremarkable exam. Read by radiologist Ryan Sun M.D. at 22:37 PM with results transmitted at 22:39 PM Reviewed: Reviewed [place] Study Departure Impression Primary Impression: Dizziness Additional Impressions: Dehydration Cystitis without hematuria Disposition: HOME, SELF-CARE Condition: Stable Departure-Patient Inst. Decision time for Depature: 01:22 Referrals: TEVIN CUENCA MD Patient Instructions: Vertigo (a Type of Dizziness) (DC), Acute Cystitis (DC), Dehydration, Adult (DC) Add. Discharge Instructions: Stay well hydrated and drink plenty of water. Take the full course of antibiotics Follow up with clinic for recheck with Dr. Cuenca next week Use the Meclizine (Antivert) to help with Dizziness/Vertigo symptoms as needed All discharge instructions reviewed with patient and/or family. Voiced understanding. Scripts Ciprofloxacin HCl (Ciprofloxacin HCl) 250 Mg Tablet 250 MG PO BID for UTI for 5 Days, #10 TAB 0 Refills Prov: BERNA MOE MD 10/29/18 Meclizine HCl (Meclizine HCl) 25 Mg Tab.chew 25 MG PO TID PRN for DIZZINESS for 10 Days, #30 TAB 0 Refills Prov: ENYART,BERNA E MD 10/29/18 BERNA MOE MD Oct 28, 2018 22:26
[2018-10-28 22:30] LABS: ALANINE AMINOTRANSFERASE 11 U/L (0-55); ALKALINE PHOSPHATASE 91 U/L (40-136); BILIRUBIN,TOTAL 0.7 MG/DL (0.1-1.0); BUN/CREATININE RATIO 24; CALCIUM 9.5 MG/DL (8.5-10.1); CARBON DIOXIDE 22 MMOL/L (21-32); CHLORIDE 98 MMOL/L (98-107); GFR ESTIMATED > 60; GLUCOSE 133 MG/DL (70-105); POTASSIUM 3.5 MMOL/L (3.6-5.0); SODIUM 138 MMOL/L (135-145); TOTAL PROTEIN 7.5 GM/DL (6.4-8.2)
[2018-10-28] MEDS ORDERED: FUROSEMIDE 40 MG (22:37)
[2018-10-29 00:03] LABS: CLARITY,URINE CLEAR; COLOR,URINE YELLOW
[2018-10-29 00:04] LABS: BACTERIA,URINE FEW /HPF; BILIRUBIN,URINE NEGATIVE (NEGATIVE); GLUCOSE, URINE (UA) NEGATIVE (NEGATIVE); KETONES,URINE TRACE (NEGATIVE); LEUKOCYTE ESTERASE ,URINE 1+ (NEGATIVE); NITRITE,URINE NEGATIVE (NEGATIVE); PH,URINE 5.5 (5-9); PROTEIN,URINE NEGATIVE (NEGATIVE); UROBILINOGEN,URINE 0.2 MG/DL (NORMAL)
[2018-10-29] MEDS ORDERED: MECLIZINE 25 MG (ANTIVERT) TAB PO STA (01:12)
[2018-10-29] MEDS ORDERED: cefTRIAXone FOR IV USE 1,000 MG in WATER (STERILE) FOR INJECTION 10 ML IV STA (01:12)
[2018-10-29] MEDS ORDERED: CIPR250T3 PO (01:26)
[2018-10-29] MEDS ORDERED: MECL-124 PO (01:26)
[2018-10-29 01:36] VITALS: BP 116/95
--- NOTE | 2018-10-29 05:35 | Diagnostic Imaging Report ---
INDICATION: Respiratory distress Portable chest 10:09 PM Heart size and pulmonary vascularity are normal. Lungs are clear. There are no effusions or pneumothoraces. IMPRESSION: Negative chest Dictated by: Dictated on workstation # [id number]
--- NOTE | 2018-10-29 05:56 | Diagnostic Imaging Report ---
PROCEDURE: CT head without contrast. TECHNIQUE: Multiple contiguous axial images were obtained through the brain without the use of intravenous contrast. Auto Exposure Controls were utilized during the CT exam to meet ALARA standards for radiation dose reduction. INDICATION: Altered mental status The ventricles are normal in size, shape and position. There are no masses or hemorrhages. There are no extra-axial fluid collections. There is some encephalomalacia in the right posterior parietal lobe and vascular territory between the middle and posterior cerebral arteries consistent with an old watershed infarct. IMPRESSION: Old right posterior parietal cerebral infarct. No acute abnormality seen. I agree with preliminary interpretation. Dictated by: Dictated on workstation # [id number]
== END 2018-10-29 01:36 | disposition home or self-care (01) ==
LOC: EDUNIT# 21:51 → ER FS 21:52
DX: R42 Dizziness and giddiness (principal); E86.0 Dehydration; N30.90 Cystitis, unspecified without hematuria; F41.9 Anxiety disorder, unspecified; K21.9 Gastro-esophageal reflux disease without esophagitis; M06.9 Rheumatoid arthritis, unspecified; Z85.038 Personal history of other malignant neoplasm of large intestine; Z90.710 Acquired absence of both cervix and uterus; Z88.2 Allergy status to sulfonamides; Z88.1 Allergy status to other antibiotic agents; Z91.040 Latex allergy status; Z88.5 Allergy status to narcotic agent; Z79.02 Long term (current) use of antithrombotics/antiplatelets; Z93.3 Colostomy status; Z86.010 Personal history of colon polyps; Z80.42 Family history of malignant neoplasm of prostate
CPT/HCPCS: 36415; 70450; 71045; 80053; 81000; 85025; 87088; 93005; 93041; 96361; 96374; 96375

== ENCOUNTER 2018-12-16 03:36 | Inpatient (IN) | payer MEDICARE, OTHER ==
[2018-12-16] VITALS (9 sets, daily range): BP systolic 105–151; BP diastolic 81–104
[~2018-12-16] VITALS: Ht 172.7 cm; Wt 108.6 kg
[~2018-12-16 03:36] MED LIST changes: +CIPR250T3 PO; +FUROSEMIDE 40 MG; +MECL-124 PO
[2018-12-16] MEDS ORDERED: PANTOPRAZOLE 40 MG (PROTONIX) VIAL ONE (03:45)
[2018-12-16] MEDS ORDERED: WATER (STERILE) FOR INJECTION 10 ML ONE (03:46)
--- NOTE | 2018-12-16 03:59 | ED General ---
General Chief Complaint: Dizziness/Syncope Stated Complaint: GI BLEED History of Present Illness Date Seen by Provider: Dec 16, 2018 Time Seen by Provider: 03:54 Initial Comments Patient presents emergency department for evaluation of bright red blood in her stools that started approximately 1 hour prior to arrival. She says it was a large amount of red stools and clots in EMS confirms that there was a large amount of bright red blood and she was using toilet paper towels to slow the bleeding. 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 She denies prior hemorrhoids or GI bleeding. She has a history of prior strokes and is on Plavix. She denies any pain fevers chills nausea vomiting diarrhea or dizziness. She is in no obvious distress but is slightly tachycardic with a blood pressure 109/73. Allergies and Home Medications Allergies Coded Allergies: Sulfa (Sulfonamide Antibiotics) (Verified Allergy, Unknown, HIVES, 10/28/18) ampicillin (Verified Allergy, Unknown, HIVES, 10/28/18) latex (Verified Allergy, Unknown, BLISTERS, 10/28/18) morphine (Verified Allergy, Unknown, 10/28/18) Home Medications Alprazolam 0.25 Mg Tablet, 0.25 MG PO TID PRN for ANXIETY, (Reported) Amitriptyline HCl 25 Mg Tablet, 75 MG PO HS, (Reported) Azathioprine 50 Mg Tablet, 100 MG PO BID, (Reported) Ciprofloxacin HCl 250 Mg Tablet, 250 MG PO BID Prescribed by: BERNA MOE on 10/29/18 012 Clopidogrel Bisulfate 75 Mg Tablet, 75 MG PO DAILY, (Reported) Cyclobenzaprine HCl 5 Mg Tablet, 5 MG PO TID PRN for MUSCLE CRAMPS, (Reported) Ibuprofen 200 Mg Tablet, 400 MG PO BID PRN for PAIN, (Reported) Meclizine HCl 25 Mg Tab.chew, 25 MG PO TID PRN for DIZZINESS Prescribed by: BERNA MOE on 10/29/18125 Metoprolol Tartrate 25 Mg Tablet, 25 MG PO DAILY, (Reported) Potassium Chloride 10 Meq Tablet.er, 10 MEQ PO DAILY, (Reported) WITH BREAKFAST Prednisone 5 Mg Tablet, 5-10 MG PO DAILY, (Reported) PATIENT CAN TAKE UP TO 2 TABS DEPENDING ON HOW SHE IS FEELING (PAIN). HAD BEEN OFF FOR APPROX. 3 WEEKS. Patient Home Medication List Home Medication List Reviewed: Yes Review of Systems Review of Systems Constitutional: no symptoms reported EENTM: no symptoms reported Respiratory: no symptoms reported Cardiovascular: no symptoms reported Gastrointestinal: other (brbpr) Genitourinary: no symptoms reported Musculoskeletal: no symptoms reported Skin: no symptoms reported Psychiatric/Neurological: No Symptoms Reported All Other Systems Reviewed Negative Unless Noted: Yes Past Lcjahgb-Lgrots-Xkwhjy Hx Patient Social History Alcohol Use: Denies Use Recreational Drug Use: No Recent Foreign Travel: No Contact w/Someone Who Travel: No Recent Hopitalizations: No Physical Abuse: No Sexual Abuse: No Mistreated: No Fear: No Immunizations Up To Date Date of Pneumonia Vaccine: September 28, 2014 Date of Influenza Vaccine: Feb 05, 2015 Seasonal Allergies Seasonal Allergies: No Past Medical History Surgeries: Yes (colostomy) Respiratory: No Currently Using CPAP: No Currently Using BIPAP: No Cardiac: Yes Neurological: Yes Reproductive Disorders: Yes HIV/AIDS: No Gastrointestinal: Yes Abdominal Hernia, Gastroesophageal Reflux, Gastrointestinal Bleed, Chronic Diarrhea, Polyps Musculoskeletal: Yes Arthritis, Rheumatoid Arthritis Endocrine: No Cancer: Yes (hysterectomyCA) Colon Psychosocial: Yes Anxiety Integumentary: No Blood Disorders: No Adverse Reaction/Blood Tranf: No Family Medical History Abdominal aortic aneurysm Alcoholism G8 BROTHER (22) G8 BROTHER (17) Alzheimer's disease 19 MOTHER (195 2012) Cataracts 19 MOTHER (2010) Deafness or hearing loss 19 MOTHER (HARD OF HEARING ) Dementia 19 MOTHER Diabetes mellitus 19 FATHER 19 MOTHER Drug abuse G8 BROTHER G8 BROTHER Gastroenteritis 19 MOTHER Headache disorder 19 MOTHER G8 BROTHER Hypercholesterolemia G8 SISTER Myocardial infarction 19 FATHER (IN HIS 60) Osteoporosis 19 MOTHER Prostate cancer 19 FATHER Physical Exam Vital Signs Vital Signs - First Documented 12/16/18 03:51 Temp 97.7 Pulse 100 Resp 18 B/P (MAP) 109/73 (85) Pulse Ox 97 O2 Delivery Room Air Capillary Refill : Height, Weight, BMI Height: 5'7.00" Weight: 240lbs. 12.8oz. 108.520912cp; BMI Method:Stated General Appearance: No Apparent Distress, WD/WN HEENT: PERRL/EOMI Neck: Supple Respiratory: No Respiratory Distress Cardiovascular: Tachycardia Gastrointestinal: Normal Bowel Sounds, Non Tender, Soft Rectal: Blood Streaked Stool; No Hemorrhoids, No Tenderness Back: Normal Inspection Extremity: Normal Capillary Refill Neurologic/Psychiatric: Alert, Oriented x3 Skin: Normal Color Progress/Results/Core Measures Suspected Sepsis SIRS Temperature: Pulse: Respiratory Rate: Laboratory Tests 12/16/18 03:45: Blood Pressure / Mean: Laboratory Tests 12/16/18 03:45: Results/Orders Lab Results Laboratory Tests Test 12/16/18 03:45 Range/Units My Orders Orders - AYANNA CHRISTENSEN DO Cbc With Automated Diff (12/16/18 03:44) Comprehensive Metabolic Panel (12/16/18 03:44) Partial Thromboplastin Time (12/16/18 03:44) Protime With Inr (12/16/18 03:44) Pantoprazole Injection (Protonix Injecti (12/16/18 09:00) Pantoprazole Injection (Protonix Injecti (12/16/18 03:45) Water (Sterile) For Injection (Sterile W (12/16/18 03:46) Medications Given in ED Current Medications Medications Dose Ordered Sig/Mar Route Start Time Stop Time Status Last Admin Dose Admin Sterile Water 10 ml @ ud STK-MED ONCE .ROUTE 12/16/18 03:46 12/16/18 03:53 DC 12/16/18 03:58 10 MLS/HR Vital Signs/I&O 12/16/18 03:51 Temp 97.7 Pulse 100 Resp 18 B/P (MAP) 109/73 (85) Pulse Ox 97 O2 Delivery Room Air Capillary Refill : Progress Note : Progress Note Patient has GI bleed and appears to be from a lower source however I do not see any obvious external hemorrhoids. This could be from a diverticular bleed or internal hemorrhoid. I spoke to Dr. Alvarado was willing to accept patient but she has been to speak to the general surgeon on-call. 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 [place]. Dr. Crook agreed to see patient in consultation. Patient is in stable condition at this time but she is high risk for adverse outcomes given she is on blood thinners and is having a large amount of bleeding per rectum. Patient will be transferred in guarded condition. Critical Care Note Critical Care Total Time (minutes) 33 Departure Impression Primary Impression: GI bleed Qualified Codes: K92.2 - Gastrointestinal hemorrhage, unspecified Disposition: ADMITTED INPATIENT Condition: Unchanged Departure-Patient Inst. Referrals: SELF,TEVIN MOSHER (PCP) Primary Care Physician AYANNA CHRISTENSEN DO Dec 16, 2018 03:59
--- NOTE | 2018-12-16 04:01 | NUR ---
rectal exam performed per Dr Martino, minimal blood noted.
[2018-12-16 04:07] LABS: WHITE BLOOD COUNT 5.8 10^3/uL (4.3-11.0)
[2018-12-16 04:08] LABS: HEMATOCRIT 33 % (35-52); HEMOGLOBIN 10.7 G/DL (11.5-16.0); MEAN CORPUSCULAR HEMOGLOBIN 33 PG (25-34)
[2018-12-16 04:09] LABS: MEAN CORPUSCULAR HGB CONC 32 G/DL (32-36); MEAN CORPUSCULAR VOLUME 102 FL (80-99); MEAN PLATELET VOLUME 10.2 FL (7.4-10.4); PLATELET COUNT 158 10^3/uL (130-400); RED CELL DISTRIBUTION WIDTH 15.2 % (10.0-14.5)
[2018-12-16 04:10] LABS: BASOPHILS % (AUTO) 0 % (0-10); EOSINOPHILS # (AUTO) 0.2 10^3/uL (0.0-0.3); EOSINOPHILS % (AUTO) 4 % (0-10); LYMPHOCYTES # (AUTO) 0.8 X 10^3 (1.0-4.0); LYMPHOCYTES % (AUTO) 13 % (12-44); MONOCYTES # (AUTO) 0.4 X 10^3 (0.0-1.0); MONOCYTES % (AUTO) 7 % (0-12); NEUTROPHILS # (AUTO) 4.4 X 10^3 (1.8-7.8); NEUTROPHILS % (AUTO) 76 % (42-75)
[2018-12-16 04:23] LABS: PROTHROMBIN TIME PATIENT 13.6 SEC (12.2-14.7)
[2018-12-16 04:25] LABS: SODIUM 142 MMOL/L (135-145)
[2018-12-16 04:26] LABS: ALANINE AMINOTRANSFERASE 11 U/L (0-55); ALKALINE PHOSPHATASE 88 U/L (40-136); BILIRUBIN,TOTAL 0.6 MG/DL (0.1-1.0); BUN/CREATININE RATIO 19; CALCIUM 9.3 MG/DL (8.5-10.1); CARBON DIOXIDE 20 MMOL/L (21-32); CHLORIDE 104 MMOL/L (98-107); CREATININE SERUM 0.88 MG/DL (0.60-1.30); GFR ESTIMATED > 60; GLUCOSE 109 MG/DL (70-105); POTASSIUM 4.2 MMOL/L (3.6-5.0); TOTAL PROTEIN 7.6 GM/DL (6.4-8.2)
[2018-12-16 04:27] LABS: ALBUMIN 4.1 GM/DL (3.2-4.5)
--- NOTE | 2018-12-16 06:39 | Pulmonary Consultation ---
History of Present Illness History of Present Illness Date of Consultation 12/16/18 06:39 Time Seen by Provider: 08:25 Date of Admission History of Present Illness 67yo with ostomy secondry to hx of ischemic colitis presented to ED secondary to BRB with clots per rectum that started 1 hour prior to arrival. denies prior hemorrhoids or GI bleeding. denies any pain fevers chills nausea vomiting diarrhea or dizziness. I am consulted for ICU management. Allergies and Home Medications Allergies Coded Allergies: Sulfa (Sulfonamide Antibiotics) (Verified Allergy, Unknown, HIVES, 10/28/18) ampicillin (Verified Allergy, Unknown, HIVES, 10/28/18) latex (Verified Allergy, Unknown, BLISTERS, 10/28/18) morphine (Verified Allergy, Unknown, 10/28/18) Home Medications Alprazolam 0.25 Mg Tablet, 0.25 MG PO TID PRN for ANXIETY, (Reported) Amitriptyline HCl 25 Mg Tablet, 75 MG PO HS, (Reported) Azathioprine 50 Mg Tablet, 100 MG PO BID, (Reported) Ciprofloxacin HCl 250 Mg Tablet, 250 MG PO BID Prescribed by: BERNA MOE on 10/29/18 0126 Clopidogrel Bisulfate 75 Mg Tablet, 75 MG PO DAILY, (Reported) Cyclobenzaprine HCl 5 Mg Tablet, 5 MG PO TID PRN for MUSCLE CRAMPS, (Reported) Ibuprofen 200 Mg Tablet, 400 MG PO BID PRN for PAIN, (Reported) Meclizine HCl 25 Mg Tab.chew, 25 MG PO TID PRN for DIZZINESS Prescribed by: BERNA MOE on 10/29/18 0126 Metoprolol Tartrate 25 Mg Tablet, 25 MG PO DAILY, (Reported) Potassium Chloride 10 Meq Tablet.er, 10 MEQ PO DAILY, (Reported) WITH BREAKFAST Prednisone 5 Mg Tablet, 5-10 MG PO DAILY, (Reported) PATIENT CAN TAKE UP TO 2 TABS DEPENDING ON HOW SHE IS FEELING (PAIN). HAD BEEN OFF FOR APPROX. 3 WEEKS. Past Qghefbx-Tjhvfq-Scutex Hx Patient Social History Alcohol Use: Denies Use Recreational Drug Use: No Recent Foreign Travel: No Contact w/Someone Who Travel: No Recent Infectious Disease Expo: No Recent Hopitalizations: No Physical Abuse: No Sexual Abuse: No Mistreated: No Fear: No Immunizations Up To Date Date of Pneumonia Vaccine: May 04, 2015 Date of Influenza Vaccine: Feb 05, 2015 Seasonal Allergies Seasonal Allergies: No Past Medical History Surgeries: Yes (colostomy) Bowel Surgery Respiratory: No Currently Using CPAP: No Currently Using BIPAP: No Cardiac: Yes Neurological: Yes Reproductive Disorders: Yes HIV/AIDS: No Gastrointestinal: Yes Abdominal Hernia, Gastroesophageal Reflux, Gastrointestinal Bleed, Chronic Diarrhea, Polyps Musculoskeletal: Yes Arthritis, Rheumatoid Arthritis Endocrine: No HEENT: No Cancer: Yes (hysterectomyCA) Colon Psychosocial: Yes Anxiety Integumentary: No Blood Disorders: No Adverse Reaction/Blood Tranf: No Family Medical History Abdominal aortic aneurysm Alcoholism G8 BROTHER (22) G8 BROTHER (17) Alzheimer's disease 19 MOTHER (195 2012) Cataracts 19 MOTHER (2010) Deafness or hearing loss 19 MOTHER (HARD OF HEARING ) Dementia 19 MOTHER Diabetes mellitus 19 FATHER 19 MOTHER Drug abuse G8 BROTHER G8 BROTHER Gastroenteritis 19 MOTHER Headache disorder 19 MOTHER G8 BROTHER Hypercholesterolemia G8 SISTER Myocardial infarction 19 FATHER (IN HIS 60) Osteoporosis 19 MOTHER Prostate cancer 19 FATHER Review of Systems Time Seen by Provider: 08:32 Constitutional: Weakness, Malaise; No: Fever, Chills, Sweats, Other ENT: No: Ear pain, Ear discharge, Nose pain, Nose discharge, Nose congestion, Mouth pain, Mouth swelling, Throat pain, Throat swelling, Other Respiratory: No: Cough, Dry, Shortness of breath, SOB with excertion, Wheezing, Hemoptysis, Pleuritic Pain, Sputum, Wheezing, Other Sepsis Event Evaluation Height, Weight, BMI Height: 5'8.00" Weight: 239lbs. 5.0oz. 108.876050yv; 36.4 BMI Method:Stated Exam Exam Vital Signs Date Time Temp Pulse Resp B/P (MAP) Pulse Ox O2 Delivery O2 Flow Rate FiO2 12/16/18 06:00 97 150/95 (113) Room Air 12/16/18 05:58 Room Air 12/16/18 05:45 94 135/86 (102) Room Air 12/16/18 05:41 97 137/81 (99) Room Air 12/16/18 05:39 100 12/16/18 05:26 98.3 97 16 151/104 (120) 98 Room Air 12/16/18 04:30 96 18 128/76 (93) 97 Room Air 12/16/18 03:51 97.7 100 18 109/73 (85) 97 Room Air I & O 12/16/18 07:00 Output Total 675 ml Balance -675 ml Height & Weight Height: 5'8.00" Weight: 239lbs. 5.0oz. 108.140570it; 36.4 BMI Method:Stated General Appearance: No Apparent Distress, WD/WN HEENT: PERRL/EOMI Neck: Supple Respiratory: No Respiratory Distress Cardiovascular: Tachycardia Capillary Refill: Less Than 3 Seconds Extremity: Normal Capillary Refill Neurologic/Psychiatric: Alert, Oriented x3 Skin: Normal Color Results Lab Laboratory Tests 12/16/18 03:45 Assessment/Plan Assessment/Plan GIB - BRBPR -Surgery consulted -Monitor Hx of ischemic colitis with current ostomy RITESH EATON DO Dec 16, 2018 06:39
[2018-12-16] MEDS ORDERED: PANTOPRAZOLE 40 MG (PROTONIX) VIAL IV SCH (09:00)
[2018-12-16 09:14] LABS: HEMOGLOBIN 10.4 G/DL (11.5-16.0)
[2018-12-16] MEDS ORDERED: FURO40TA4 PO (10:37)
[2018-12-16] MEDS ORDERED: CYCL5TAB PO (10:37)
[2018-12-16] MEDS ORDERED: CALC300T4 PO (10:37)
[2018-12-16] MEDS ORDERED: POTA10CA43 PO (10:37)
[2018-12-16] MEDS ORDERED: NAPR220T66 PO (10:37)
[2018-12-16] MEDS ORDERED: MULT1TAB69 PO (10:37)
--- NOTE | 2018-12-16 10:37 | NUR ---
SPOKE WITH THE PATIENT ABOUT HER MEDICATIONS. SHE HAS HER BOTTLES WITH HER AND VERIFIED HOW SHE TAKES THEM. SHE STATES SHE HAS NOT BEEN TAKING HER LASIX FOR THE PAST 3 WEEKS OR SO, SHE FEELS IN THIS HOT WEATHER IT MAKES HER DIZZY. SINCE SHE HAS NOT BEEN TAKING THE LASIX SHE HAS NOT BEEN TAKING THE POTASSIUM EITHER. PATIENT HAS BOTTLES IN HER BAG THAT SHE STATES SHE IS NO LONGER TAKING. SHE JUST KEEPS THEM ON HAND FOR REFERENCE. THEY INCLUDE: 12-22-17 KEFLEX 500MG #28 12-08-17 TRAMADOL 50MG #28 09-21-16 CIPRO 250MG #14 16 HYDROCODONE 5-325 #120 12-13-14 ALPRAZOLAM 0.25MG #30 12-13-14 ZOLPIDEM 5MG #15 OTC RANITIDINE SHE TAKES THE FOLLOWING OTC: [employer] DAILY NAPROXEN 2 TABS BID TUMS PRN
--- NOTE | 2018-12-16 10:37 | History & Physical-Hospitalist ---
LISA BLOUNT, 12/16/18 1037: History of Present Illness HPI/Chief Complaint CC: bloody stool HPI: This is a 67 yo WF who got up this morning at 2:30 am for a BM. Noticed tissue paper had blood and blood clots on it. Eventually needed to use paper towels to stop the bleeding so she could call for help. EMS brought her to the ER and observed blood on the towels. Pt denies N/V or any abdominal pain. Denies any other symptoms. Source: patient Exam Limitations: no limitations Date Seen 12/16/18 Time Seen by a Provider: 08:00 Attending Physician Stephanie Farmer DO PCP Self,Tay MOSHER Referring Physician Date of Admission Dec 16, 2018 at 04:00 Home Medications & Allergies Home Medications Reviewed patient Home Medication Reconciliation performed by pharmacy medication reconciliations supply chain technician and/or nursing. Patients Allergies have been reviewed. Allergies Allergies Coded Allergies Sulfa (Sulfonamide Antibiotics) (Verified Allergy, Unknown, HIVES, 10/28/18) ampicillin (Verified Allergy, Unknown, HIVES, 10/28/18) latex (Verified Allergy, Unknown, BLISTERS, 10/28/18) morphine (Verified Allergy, Unknown, 10/28/18) Past Hhfxrnh-Nvulig-Qalgkl Hx Patient Social History Marrital Status: Alcohol Use: Denies Use Recreational Drug Use: No Smoking Status: Never a Smoker Recent Foreign Travel: No Contact w/other who traveled: No Recent Hopitalizations: No Recent Infectious Disease Expo: No Immunizations Up To Date Date of Pneumonia Vaccine: May 04, 2015 Date of Influenza Vaccine: Feb 05, 2015 Seasonal Allergies Seasonal Allergies: No Past Medical History Surgeries: Bowel Surgery, Hysterectomy Currently Using CPAP: No Currently Using BIPAP: No Cardiac: Heart Attack, Hypertension Neurological: Stroke Reproductive: Yes HIV/AIDS: No Gastrointestinal: Abdominal Hernia, Gastroesophageal Reflux, Gastrointestinal Bleed, Chronic Diarrhea, Polyps Musculoskeletal: Arthritis, Rheumatoid Arthritis Cancer: Colon Psychosocial: Anxiety History of Blood Disorders: No Adverse Reaction to Blood [place]: No Family History Abdominal aortic aneurysm Alcoholism G8 BROTHER (22) G8 BROTHER (17) Alzheimer's disease 19 MOTHER (195 2012) Cataracts 19 MOTHER (2010) Deafness or hearing loss 19 MOTHER (HARD OF HEARING ) Dementia 19 MOTHER Diabetes mellitus 19 FATHER 19 MOTHER Drug abuse G8 BROTHER G8 BROTHER Gastroenteritis 19 MOTHER Headache disorder 19 MOTHER G8 BROTHER Hypercholesterolemia G8 SISTER Myocardial infarction 19 FATHER (IN HIS 60) Osteoporosis 19 MOTHER Prostate cancer 19 FATHER Review of Systems Constitutional: No chills, No fever EENTM: No nose congestion, No throat pain Respiratory: No cough, No short of breath Cardiovascular: No chest pain Gastrointestinal: no symptoms reported; No nausea, No vomiting Genitourinary: no symptoms reported Musculoskeletal: no symptoms reported Skin: no symptoms reported Psychiatric/Neurological: No Symptoms Reported All Other Systems Reviewed Negative Unless Noted: Yes Physical Exam Physical Exam Vital Signs Vital Signs - First Documented 12/16/18 03:51 Temp 97.7 Pulse 100 Resp 18 B/P (MAP) 109/73 (85) Pulse Ox 97 O2 Delivery Room Air Capillary Refill : Less Than 3 Seconds Height, Weight, BMI Height: 5'8.00" Weight: 239lbs. 5.0oz. 108.240626ku; 36.4 BMI Method:Stated General Appearance: No Apparent Distress Neck: Non Tender, Supple Respiratory: Lungs Clear, Normal Breath Sounds, No Accessory Muscle Use, No Respiratory Distress Cardiovascular: Regular Rate, Rhythm, Other (murmur) Gastrointestinal: Normal Bowel Sounds; No Guarding, No Tenderness Extremity: Swelling Neurologic/Psychiatric: Alert, Oriented x3 Skin: Normal Color, Warm/Dry Lymphatic: No Adenopathy Results Results/Procedures Labs Laboratory Tests 12/16/18 03:45 12/16/18 09:05 Patient resulted labs reviewed. O+ blood type Assessment/Plan Admission Diagnosis GI bleed Assessment and Plan Assessment: 1. GI bleed 2. Hx of MD 3. Hx CVA 4. Hx of ischemic bowel Plan: 1. Pantoprazole 80mg QD 2. Consult general surgery 3. Send stool for C. diff toxins 4. Stop naproxen 5. Colonoscopy if needed Diagnosis/Problems Diagnosis/Problems (1) GI bleed Status: Acute Qualifiers: GI bleed type/associated pathology: unspecified gastrointestinal hemorrhage type Qualified Codes: K92.2 - Gastrointestinal hemorrhage, unspecified Clinical Quality Measures DVT/VTE Risk/Contraindication: Risk Factor Score Per Nursin RFS Level Per Nursing on Admit: 4+=Very High STEPHANIE FARMER DO 12/16/18 2150: History of Present Illness HPI/Chief Complaint Chief Complaint: Bright red blood per rectum HPI: This is a 67yoWF with a history of ischemia bowel s/p two colostomies most recent was in 2014 due to colon cancer who presented with blood clots per rectum and significant amount of bleeding maintained on Plavix due to history of CAD and stroke. She is managed by Dr. Sweet and regularly sees him but is not es tablished with cardiology, neurology, or gastroenterology. At this current time pt has not had anymore bleeding cardiology has been consulted and general surgery has been consulted in order to evaluating where the bleeding is coming from. Pt's hemoglobin did drop a little bit to 10 but not enough for a transfusion. Past Hqpybft-Cahtde-Hogdkp Hx Past Med/Social Hx: Reviewed Nursing Past Med/Soc Hx, Reviewed and Corrections made Patient Social History Marrital Status: Family History Abdominal aortic aneurysm Alcoholism G8 BROTHER (22) G8 BROTHER (17) Alzheimer's disease 19 MOTHER (195 2012) Cataracts 19 MOTHER (2010) Deafness or hearing loss 19 MOTHER (HARD OF HEARING ) Dementia 19 MOTHER Diabetes mellitus 19 FATHER 19 MOTHER Drug abuse G8 BROTHER G8 BROTHER Gastroenteritis 19 MOTHER Headache disorder 19 MOTHER G8 BROTHER Hypercholesterolemia G8 SISTER Myocardial infarction 19 FATHER (IN HIS 60) Osteoporosis 19 MOTHER Prostate cancer 19 FATHER Review of Systems Gastrointestinal: abdominal pain, melena Physical Exam Physical Exam General Appearance: No Apparent Distress, WD/WN, Chronically ill, Obese Eyes: Right Eye Normal Inspection, Right Eye PERRL HEENT: PERRL/EOMI, Normal ENT Inspection, Pharynx Normal, Moist Mucous Membranes Neck: Full Range of Motion, Normal Inspection, Non Tender Respiratory: Chest Non Tender, Lungs Clear, Normal Breath Sounds, No Accessory Muscle Use, No Respiratory Distress Cardiovascular: Regular Rate, Rhythm, No Edema, No Gallop, No JVD, No Murmur, Normal Peripheral Pulses Gastrointestinal: Normal Bowel Sounds, No Organomegaly, No Pulsatile Mass, Non Tender, Soft, Other (colostomy in place) Back: Normal Inspection, No CVA Tenderness, No Vertebral Tenderness Extremity: Normal Capillary Refill, Normal Inspection, Normal Range of Motion, Non Tender, No Calf Tenderness, No Pedal Edema Neurologic/Psychiatric: Alert, Oriented x3, No Motor/Sensory Deficits, Normal Mood/Affect Skin: Normal Color, Warm/Dry Lymphatic: No Adenopathy Assessment/Plan Admission Diagnosis GIB Colostomy Ischemic bowel in past CVA in past on Plavix CAD Plan: Surgery and cardiology consultation appreciated Admission Status: Inpatient Order (span 2 midnights) Reason for Inpatient Admission: Patient with GIB will require close monitoring and likely endoscopy Supervisory-Addendum Brief Verification & Attestation Participated in pt care: history, MDM, physical Personally performed: exam, history, MDM, supervision of care Care discussed with: Medical Student Procedures: n/a Results interpretation: Verified all documentation Verification and Attestation of Medical Student E/M Service A medical student performed and documented this service in my presence. I reviewed and verified all information documented by the medical student and made modifications to such information, when appropriate. I personally performed the physical exam and medical decision making. Stephanie Farmer, Dec 16, 2018,21:52 LISA BLOUNT, Dec 16, 2018 10:37 STEPHANIE FARMER DO Dec 16, 2018 21:50
--- NOTE | 2018-12-16 10:45 | NUR ---
PT TRANSFERRED TO 4TH FLOOR VIA WHEELCHAIR. REPORT GIVEN TO PARVIN. NO CONCERNS VOICED.
--- NOTE | 2018-12-16 10:55 | NUR ---
PATIENT TO FLOOR AT THIS TIME VIA W/C ACCOMPANIED BY German NEWTON, ABDON AND ORIENTEE. BEDSIDE REPORT TAKEN AT THIS TIME. THIS RN DID A PHYSICAL ASSESSMENT OF THIS PATIENT, THIS RN AGREES WITH THE PREVIOUS ASSESSMENT OF THIS PATIENT THAT HAS BEEN DOCUMENTED. THIS RN WILL ASSUME CARE OF THIS PATIENT AT THIS TIME AND WILL CONT TO MONITOR THIS PATIENT THROUGHOUT THE REMAINDER OF THIS SHIFT.
--- NOTE | 2018-12-16 11:39 | NUR ---
Pt is Taoist. Polyethylene Bag Machine Operator offered prayer.
[2018-12-16] MEDS ORDERED: LACTATED RINGERS 1,000 ML IV PRN (12:36)
--- NOTE | 2018-12-16 13:15 | Consultation-Cardiology ---
HPI-Cardiology Cardiology Consultation Date of Consultation 12/16/18 Date of Admission Time Seen by Provider: 13:10 Indication: coronary artery disease HPI 67 years old lady with history of colon cancer, has colostomy bag, she noted this morning that she had blood with her bowel movement, no blood in her stoma. Came into the hospital for evaluation. She denied any chest pain or shortness of breath, reporting history of heart attack in the past. Did not have a cardiac catheterization or workup done in the past. Denied any chest pain, no syncope or near-syncopal episodes. No claudications. Home Medications & Allergies Allergies: Coded Allergies: Sulfa (Sulfonamide Antibiotics) (Verified Allergy, Unknown, HIVES, 10/28/18) ampicillin (Verified Allergy, Unknown, HIVES, 10/28/18) latex (Verified Allergy, Unknown, BLISTERS, 10/28/18) morphine (Verified Allergy, Unknown, 10/28/18) Home Medication List Reviewed: Yes WMX-Qlwcrh-Neybze Hx Patient Social History Marital Status: Alcohol Use: Denies Use Recreational Drug Use: No Smoking Status: Never a Smoker Former smoker/When Quit: Mar 02, 1961 Recent Foreign Travel: No Recent Infectious Disease Expo: No Recent Hopitalizations: No Immunizations Up To Date Date of Pneumonia Vaccine: May 04, 2015 Date of Influenza Vaccine: Feb 05, 2015 Past Medical History discussed below Family Medical History Family History: Abdominal aortic aneurysm Alcoholism G8 BROTHER (22) G8 BROTHER (17) Alzheimer's disease 19 MOTHER (195 2012) Cataracts 19 MOTHER (2010) Deafness or hearing loss 19 MOTHER (HARD OF HEARING ) Dementia 19 MOTHER Diabetes mellitus 19 FATHER 19 MOTHER Drug abuse G8 BROTHER G8 BROTHER Gastroenteritis 19 MOTHER Headache disorder 19 MOTHER G8 BROTHER Hypercholesterolemia G8 SISTER Myocardial infarction 19 FATHER (IN HIS 60) Osteoporosis 19 MOTHER Prostate cancer 19 FATHER Review of Systems-General Review of Systems Constitutional: No chills, No fever; malaise EENTM: see HPI; No nose congestion, No throat pain Respiratory: see HPI; No cough, No dyspnea on exertion, No hemoptysis, No orthopnea, No phlegm, No short of breath, No stridor, No wheezing, No other Cardiovascular: see HPI; No chest pain, No edema, No Hx of Intervention, No palpitations, No syncope, No vascular heart diseas, No other Gastrointestinal: see HPI; No nausea, No vomiting; other (bright red blood per rectum) Genitourinary: no symptoms reported, see HPI Musculoskeletal: see HPI, joint pain Skin: no symptoms reported, see HPI Psychiatric/Neurological: No Symptoms Reported All Other Systems Reviewed Negative Unless Noted: Yes Reviewed Test Results Reviewed Test Results Lab Laboratory Tests Test 12/16/18 03:45 12/16/18 06:00 12/16/18 09:05 Range/Units White Blood Count 5.8 4.3-11.0 10^3/uL Red Blood Count 3.29 L 4.35-5.85 10^6/uL Hemoglobin 10.7 L 10.4 L 11.5-16.0 G/DL Hematocrit 33 L 32 L 35-52 % Mean Corpuscular Volume 102 H 80-99 FL Mean Corpuscular Hemoglobin 33 25-34 PG Mean Corpuscular Hemoglobin Concent 32 32-36 G/DL Red Cell Distribution Width 15.2 H 10.0-14.5 % Platelet Count 158 130-400 10^3/uL Mean Platelet Volume 10.2 7.4-10.4 FL Neutrophils (%) (Auto) 76 H 42-75 % Lymphocytes (%) (Auto) 13 12-44 % Monocytes (%) (Auto) 7 0-12 % Eosinophils (%) (Auto) 4 0-10 % Basophils (%) (Auto) 0 0-10 % Neutrophils # (Auto) 4.4 1.8-7.8 X 10^3 Lymphocytes # (Auto) 0.8 L 1.0-4.0 X 10^3 Monocytes # (Auto) 0.4 0.0-1.0 X 10^3 Eosinophils # (Auto) 0.2 0.0-0.3 10^3/uL Basophils # (Auto) 0.0 0.0-0.1 10^3/uL Prothrombin Time 13.6 12.2-14.7 SEC INR Comment 1.0 0.8-1.4 Activated Partial Thromboplast Time 22 L 24-35 SEC Sodium Level 142 135-145 MMOL/L Potassium Level 4.2 3.6-5.0 MMOL/L Chloride Level 104 98-107 MMOL/L Carbon Dioxide Level 20 L 21-32 MMOL/L Anion Gap 18 H 5-14 MMOL/L Blood Urea Nitrogen 17 7-18 MG/DL Creatinine 0.88 0.60-1.30 MG/DL Estimat Glomerular Filtration Rate > 60 BUN/Creatinine Ratio 19 Glucose Level 109 H 70-105 MG/DL Calcium Level 9.3 8.5-10.1 MG/DL Corrected Calcium 9.2 8.5-10.1 MG/DL Total Bilirubin 0.6 0.1-1.0 MG/DL Aspartate Amino Transf (AST/SGOT) 35 H 5-34 U/L Alanine Aminotransferase (ALT/SGPT) 11 0-55 U/L Alkaline Phosphatase 88 40-136 U/L Total Protein 7.6 6.4-8.2 GM/DL Albumin 4.1 3.2-4.5 GM/DL Stool Occult Blood Immunoassay POSITIVE H NEGATIVE Physical Exam Physical Exam Vital Signs Vital Signs - First Documented 12/16/18 03:51 Temp 97.7 Pulse 100 Resp 18 B/P (MAP) 109/73 (85) Pulse Ox 97 O2 Delivery Room Air Capillary Refill : Less Than 3 Seconds Height, Weight, BMI Height: 5'8.00" Weight: 239lbs. 5.0oz. 108.522800hc; 36.4 BMI Method:Stated General Appearance: No Apparent Distress HEENT: PERRL/EOMI Neck: Non Tender, Supple Respiratory: Lungs Clear, Normal Breath Sounds, No Accessory Muscle Use, No Respiratory Distress Cardiovascular: Regular Rate, Rhythm, No Gallop, No Murmur, Other (murmur) Gastrointestinal: Normal Bowel Sounds; No Guarding, No Tenderness Rectal: Deferred; No Hemorrhoids, No Tenderness Back: Normal Inspection Extremity: Normal Capillary Refill, Swelling Neurologic/Psychiatric: Alert, Oriented x3 Skin: Normal Color, Warm/Dry Lymphatic: No Adenopathy A/P-Cardiology Admission Diagnosis Lower GI bleed Coronary artery disease Hypertension Assessment/Plan Lower GI bleed, managed by primary care team History of colon cancer, history of resection and colostomy bag, managed by primary care team Questionable history of coronary artery disease, reporting history of heart attack in the remote past. No cardiac workup was done, we'll evaluate echocardiogram and monitor next Hypertension, restart home medication monitor blood pressure Arthritis. Clinical Quality Measures DVT/VTE Risk/Contraindication: Risk Factor Score Per Nursin RFS Level Per Nursing on Admit: 4+=Very High PHONG MCCAIN MD Dec 16, 2018 13:14
--- NOTE | 2018-12-16 15:59 | Discharge Inst-Surgical ---
Discharge Inst-Surgical Reconcile Patient Problems Problems Reviewed?: Yes (Pt understood need to stop Plavix and risk of stroke or blood when stopping it.) Depart Medication/Instructions New, Converted or Re-Newed RX: Other (No rx needed) Patient Instructions Follow up Appt: Make appointment for Thursday, for Flexible Sigmoidoscopy. [phone] Instructions: May shower in 24 hours, no tub bath or soaking. Use incentive spirometer at home as directed. No Smoking Symptoms to Report: Appetite Changes, Extremity Discoloration, Numbness/Tingling, Swelling Increased, Bleeding Excessive, Eyesight Changes, Pain Increased, Urine Color Change, Constipation(Persistent), Fever over 101 degree F, Pain/Pressure in chest, Urinating Difficulty, Cough Up/Vomit Blood, Heart Beat Irreg/Pounding, Pain/Pressure in jaw, Cramps in feet or legs, Lightheadedness, Pain/Pressure in shoulder, Diarrhea(Persistent), Memory Changes Suddenly, Questions/Concerns, Weight gain consecutive days, Dizziness/Fainting, Nausea/Vomiting, Shortness of Breath, Weight gain over 2 pounds If questions or concerns contact your physician Or seek help at emergency department. Activity Activity as Tolerated: Yes Diet Discharge Diet: No Restrictions Diet After 24 Hours: Clear Liquid if Nauseous Skin/Wound Care Bathing Instructions: JEANETTE Gonzales DO Dec 16, 2018 15:59
--- NOTE | 2018-12-16 17:41 | Consultation - Surgery ---
History of Present Illness History of Present Illness Patient Consulted On(padma/time) 12/16/18 17:36 Time Seen by Provider: 09:41 History of Present Illness Surgery asked to consult regarding rectal bleed. HPI per ED: Patient presents emergency department for evaluation of bright red blood in her stools that started approximately 1 hour prior to arrival. She says it was a large amount of red stools and clots in EMS confirms that there was a large amount of bright red blood and she was using toilet paper towels to slow the bleeding. 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 She denies prior hemorrhoids or GI bleeding. She has a history of prior strokes and is on Plavix. She denies any pain fevers chills nausea vomiting diarrhea or dizziness. She is in no obvious distress but is slightly tachycardic with a blood pressure 109/73. When I spoke to pt she relates story of waking up at 2:30 am to urinate and then noticed blood in the toilet; stated she couldn't get it to stop and was trying to use paper towels to stop the bleeding. She states this has never happened to her before. She has had a colostomy since 2011. Pt denies any abdominal pain or rectal pain. 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 Allergies and Home Medications Allergies Coded Allergies: Sulfa (Sulfonamide Antibiotics) (Verified Allergy, Unknown, HIVES, 10/28/18) ampicillin (Verified Allergy, Unknown, HIVES, 10/28/18) latex (Verified Allergy, Unknown, BLISTERS, 10/28/18) morphine (Verified Allergy, Unknown, 10/28/18) Home Medications Amitriptyline HCl 25 Mg Tablet, 75 MG PO BID, (Reported) TAKES 3 (25MG) TABLETS Azathioprine 50 Mg Tablet, 100 MG PO BID, (Reported) TAKES 2 (50MG) TABLETS Calcium Carbonate 300 Mg Tab.chew, 300 MG PO BID PRN for HEARTBURN, (Reported) Cyclobenzaprine HCl 5 Mg Tablet, 5 MG PO DAILY, (Reported) Cyclobenzaprine HCl 5 Mg Tablet, 10 MG PO HS, (Reported) TAKES 2 (5MG) TABLETS Furosemide 40 Mg Tablet, 40 MG PO DAILY PRN for SWELLING/ WHEN NOT IN THE HEAT, (Reported) DOES NOT TAKE WHEN IT IS HOT OUTSIDE, CAUSES DIZZINESS Metoprolol Tartrate 25 Mg Tablet, 25 MG PO DAILY, (Reported) Multivitamin 1 Each Tablet, 1 TAB PO DAILY, (Reported) Naproxen Sodium 220 Mg Tablet, 440 MG PO BID, (Reported) Potassium Chloride 10 Meq Capsule.er, 10 MEQ PO DAILY PRN for WHEN TAKING FUROSEMIDE, (Reported) Prednisone 5 Mg Tablet, 5-10 MG PO DAILY, (Reported) PATIENT CAN TAKE UP TO 2 TABS DEPENDING ON HOW SHE IS FEELING (PAIN) Patient Home Medication List Home Medication List Reviewed: Yes Past Kcehsrl-Azukqm-Gifbdb Hx Patient Social History Alcohol Use: Denies Use Recreational Drug Use: No Smoking Status: Never a Smoker Recent Foreign Travel: No Contact w/Someone Who Travel: No Recent Infectious Disease Expo: No Recent Hopitalizations: No Immunizations Up To Date Date of Pneumonia Vaccine: May 04, 2015 Date of Influenza Vaccine: Feb 05, 2015 Seasonal Allergies Seasonal Allergies: No Surgeries History of Surgeries: Yes (colostomy) Surgeries: Bowel Surgery, Hysterectomy Respiratory History of Respiratory Disorde: No Cardiovascular History of Cardiac Disorders: Yes Cardiac Disorders: Heart Attack, Hypertension Neurological History of Neurological Disord: Yes Neurological Disorders: Stroke Reproductive System Hx Reproductive Disorders: Yes HIV/AIDS: No Gastrointestinal History of Gastrointestinal Di: Yes Gastrointestinal Disorders: Abdominal Hernia, Gastroesophageal Reflux, Gastrointestinal Bleed, Chronic Diarrhea, Polyps Musculoskeletal History of Musculoskeletal Dis: Yes Musculoskeletal Disorders: Arthritis, Rheumatoid Arthritis Endocrine History of Endocrine Disorders: No HEENT History of HEENT Disorders: No Cancer History of Cancer: Yes (hysterectomyCA) Cancer: Colon Psychosocial History of Psychiatric Problem: Yes Behavioral Health Disorders: Anxiety Integumentary History of Skin or Integumenta: No Blood Transfusions History of Blood Disorders: No Adverse Reaction to a Blood Tr: No Family Medical History Significant Family History: Cancer, CAD Over 55 Years Old, Diabetes Family Medial History: Abdominal aortic aneurysm Alcoholism G8 BROTHER (22) G8 BROTHER (17) Alzheimer's disease 19 MOTHER (195 2012) Cataracts 19 MOTHER (2010) Deafness or hearing loss 19 MOTHER (HARD OF HEARING ) Dementia 19 MOTHER Diabetes mellitus 19 FATHER 19 MOTHER Drug abuse G8 BROTHER G8 BROTHER Gastroenteritis 19 MOTHER Headache disorder 19 MOTHER G8 BROTHER Hypercholesterolemia G8 SISTER Myocardial infarction 19 FATHER (IN HIS 60) Osteoporosis 19 MOTHER Prostate cancer 19 FATHER Review of Systems-General Constitutional: No malaise, No weakness EENTM: No blurred vision, No mouth pain, No mouth swelling, No epistaxis Respiratory: No cough, No dyspnea on exertion, No hemoptysis Cardiovascular: No chest pain, No edema, No palpitations Gastrointestinal: No abdominal pain, No hematemesis, No heartburn Genitourinary: No dysuria, No frequency, No hematuria Musculoskeletal: joint pain, joint swelling, muscle stiffness, muscle cramps Skin: No change in color, No change in hair/nails Psychiatric/Neurological: Denies Anxiety, Denies Depressed, Denies Seizure, Denies Tremors Other Pt is on Plavix so occasionally bleeds easily/excessively. Physical Exam-General Problems Physical Exam Vital Signs Vital Signs - First Documented 12/16/18 03:51 Temp 97.7 Pulse 100 Resp 18 B/P (MAP) 109/73 (85) Pulse Ox 97 O2 Delivery Room Air Capillary Refill : Less Than 3 Seconds General Appearance: WD/WN, mild distress Eyes: Bilateral Eye PERRL, Bilateral Eye EOMI HEENT: pharynx normal; No scleral icterus (R), No scleral icterus (L) Neck: non-tender; No thyromegaly Respiratory: chest non-tender, lungs clear, normal breath sounds, no respiratory distress, no accessory muscle use Cardiovascular: regular rate, rhythm, no murmur Gastrointestinal: normal bowel sounds, soft, no organomegaly, no pulsatile mass, other (pt has large scar in midline and ostomy pink and fxning) Back: no CVA tenderness, no vertebral tenderness Extremities: no pedal edema, no calf tenderness, normal capillary refill, other (hands deviate laterally) Neurologic/Psychiatric: lei maker II-XII nml as tested, alert, normal mood/affect, oriented x 3 Skin: normal color, warm/dry Lymphatic: no adenopathy (neck, axilla or groin) Data Review Labs Laboratory Tests 12/16/18 03:45: White Blood Count 5.8, Red Blood Count 3.29L, Hemoglobin 10.7L, Hematocrit 33L, Mean Corpuscular Volume 102H, Mean Corpuscular Hemoglobin 33, Mean Corpuscular Hemoglobin Concent 32, Red Cell Distribution Width 15.2H, Platelet Count 158, Mean Platelet Volume 10.2, Neutrophils (%) (Auto) 76H, Lymphocytes (%) (Auto) 13, Monocytes (%) (Auto) 7, Eosinophils (%) (Auto) 4, Basophils (%) (Auto) 0, Neutrophils # (Auto) 4.4, Lymphocytes # (Auto) 0.8L, Monocytes # (Auto) 0.4, Eosinophils # (Auto) 0.2, Basophils # (Auto) 0.0, Prothrombin Time 13.6, INR Comment 1.0, Activated Partial Thromboplast Time 22L, Sodium Level 142, Potassium Level 4.2, Chloride Level 104, Carbon Dioxide Level 20L, Anion Gap 18H , Blood Urea Nitrogen 17, Creatinine 0.88, Estimat Glomerular Filtration Rate > 60, BUN/Creatinine Ratio 19, Glucose Level 109H, Calcium Level 9.3, Corrected Calcium 9.2, Total Bilirubin 0.6, Aspartate Amino Transf (AST/SGOT) 35H, Alanine Aminotransferase (ALT/SGPT) 11, Alkaline Phosphatase 88, Total Protein 7.6, Albumin 4.1 12/16/18 06:00: Stool Occult Blood Immunoassay POSITIVEH 12/16/18 09:05: Hemoglobin 10.4L, Hematocrit 32L 12/16/18 16:15: Glucometer 76 Microbiology 12/16/18 C. difficile GDH Antigen & Toxins - Final, Complete Assessment/Plan Assessment/Plan Assessment/Plan Rectal Bleed Anemia Plan is to continue NPO, IV fluids, pain control and will take to Endoscopy for Flex sigmoidoscopy to look at rectal stump and try to determine cause of bleeding. Pt subsequently decided she wanted to go home and do this as an outpt. She should stop her Plavix until Thursday after procedure; but doesn't have to, if she is concerned about strokes. Clinical Quality Measures DVT/VTE Risk/Contraindication: Risk Factor Score Per Nursin RFS Level Per Nursing on Admit: 4+=Very High JEANETTE MAN DO Dec 16, 2018 17:41
[2018-12-17] MEDS ORDERED: CLOP75TA69 PO (11:10)
--- NOTE | 2018-12-17 12:33 | Physician Query-Final Dx ---
LAZARA HARRISON 12/17/18 1233: Final Diagnosis Give Final Diagnosis Please give Final Diagnosis JEANETTE MAN DO 12/21/182028: Final Diagnosis Give Final Diagnosis Rectal Bleed Anemia LAZARA HARRISON Dec 17, 2018 12:33 JEANETTE MAN DO Dec 21, 2018 20:29
== END 2018-12-16 17:15 | disposition home or self-care (01) | DRG 379 ==
LOC: EDUNIT# 03:36 → ER FS 03:37 → ICU 04:00 → 4TH 10:45
PROVIDERS: ADMIT Internal Medicine; ATTEND Internal Medicine
DX: K92.2 Gastrointestinal hemorrhage, unspecified (principal); I10 Essential (primary) hypertension; I25.10 Atherosclerotic heart disease of native coronary artery without angina pectoris; Z79.01 Long term (current) use of anticoagulants; Z93.3 Colostomy status; K21.9 Gastro-esophageal reflux disease without esophagitis; M06.9 Rheumatoid arthritis, unspecified; M19.90 Unspecified osteoarthritis, unspecified site; F41.9 Anxiety disorder, unspecified; I25.2 Old myocardial infarction; Z85.038 Personal history of other malignant neoplasm of large intestine; Z90.710 Acquired absence of both cervix and uterus; Z86.73 Personal history of transient ischemic attack (TIA), and cerebral infarction without residual deficits
CPT/HCPCS: 36415; 80053; 82274; 82962; 85014; 85018; 85025; 85610; 85730; 86850; 86900; 86901; 87081; 87324; 87449

== ENCOUNTER 2018-12-17 10:57 | Outpatient (CLI) | payer MEDICARE, OTHER ==
[~2018-12-17] VITALS: Ht 172.7 cm; Wt 108.6 kg
[~2018-12-17 10:57] MED LIST changes: +CALC300T4 PO; +FURO40TA4 PO; +MULT1TAB69 PO; +NAPR220T66 PO; +POTA10CA43 PO
[2018-12-17] MEDS ORDERED: CLOP75TA69 PO (11:10)
== END 2018-12-17 11:48 ==
LOC: PREOP 10:57
PROVIDERS: ATTEND Surgery
DX: Z01.818 Encounter for other preprocedural examination (principal); K62.5 Hemorrhage of anus and rectum

== ENCOUNTER 2018-12-20 11:50 | Day surgery (SDC) | payer MEDICARE, OTHER ==
[~2018-12-20] VITALS: Ht 172.7 cm; Wt 108.6 kg
[~2018-12-20 11:50] MED LIST changes: +CLOP75TA69 PO
[2018-12-20] MEDS ORDERED: LACTATED RINGERS 1,000 ML IV ONE (12:00)
[2018-12-20] MEDS ORDERED: LACTATED RINGERS 1,000 ML IV STA (12:15)
[2018-12-20 12:20] VITALS: BP 107/72
[2018-12-20] MEDS ORDERED: proPOfol 200 MG/20 ML (DIPRIVAN) VIAL IV ONE (12:44)
--- NOTE | 2018-12-20 12:56 | Progress Note-Pre Operative ---
Pre-Operative Progress Note H&P Reviewed The H&P was reviewed, patient examined and no changes noted. Time Seen by Provider: 12:53 Date H&P Reviewed: Dec 20, 2018 Time H&P Reviewed: 12:54 Pre-Operative Diagnosis: rectal bleed JEANETTE MAN DO Dec 20, 2018 12:56
[2018-12-20 13:10] VITALS: BP 106/55
--- NOTE | 2018-12-20 13:11 | Progress Note-Post Operative ---
Post-Operative Progess Note Surgeon (s)/Directory Carrier (s) Surgeon JEANETTE MAN DO Directory Carrier: none Pre-Operative Diagnosis rectal bleed Post-Operative Diagnosis rectal mass Procedure & Operative Findings Date of Procedure 12/20/18 Procedure Performed/Findings Proctoscopy with snare polypectomy Anesthesia Type IV sedation by SUPERVISOR INDUSTRIAL GARMENT Estimated Blood Loss Estimated blood loss (mL): minimal Specimens/Packing Specimens Removed Portion of rectal mass JEANETTE MAN DO Dec 20, 2018 13:11
--- NOTE | 2018-12-20 13:13 | Endoscopy Discharge Instruct ---
Endo Procedure/Findings Findings 1.: Polyp Discharge Instructions - Activity: You might feel a little sleepy until tomorrow. This is due to the medicine you received to relax you. Until tomorrow, you should: NOT drive a car, operate machinery or power tools. NOT drink any alcoholic beverages. NOT make any important decisions or sign importortant papers. Do not return to work until tomorrow, unless otherwise instructed. Resume pr evious activities tomorrow. Diet: Start by taking liquids. If you tolerate liquids, advance to solid food. Make an appointment for one week. Notify Physician - If you experience excessive bleeding, unusual abdominal pain, fever, or chest pain, contact your doctor immediately. Follow-Up: - I have received and understand the above instructions and will call my doctor if I have any further questions. Patient Signature Date Nurse Signature Other (Relationship) JEANETTE MAN DO Dec 20, 2018 13:13
[2018-12-20 13:15] VITALS: BP 106/55
[2018-12-20 13:42] VITALS: BP 105/56
[2018-12-20 13:45] VITALS: BP 105/56
--- NOTE | 2018-12-20 18:43 | OPERATIVE REPORT ---
DATE OF SERVICE: 12/20/2018 PREOPERATIVE DIAGNOSIS: Rectal bleed. POSTOPERATIVE DIAGNOSIS: Rectal mass and rectal bleed. PROCEDURE: Probably proctoscopy with snare polypectomy. SURGEON: Bill Montana DO STRAND AND BINDER CONTROLLER: None. ANESTHESIA: IV sedation by the COMMERCIAL LINES ASSISTANT. SPECIMEN: Rectal mass. BLOOD LOSS: Minimal. POSTOPERATIVE CONDITION: Stable. INDICATION FOR PROCEDURE: The patient is a 67-year-old female who had rectal bleeding episode and needed a workup. She had previous colon surgeries. She has an ostomy and a mucous fistula, but needed to check the rectal stump. FINDINGS: The patient had a mass in the rectal stump. Pictures taken. Biopsy done. PROCEDURE NOTE: After informed consent was obtained, the patient was brought to the endoscopy suite and placed in the bed in the left lateral decubitus position. She was administered IV sedation by the COMMERCIAL LINES ASSISTANT who then monitored her vitals the entire time, heart rate, blood pressure and pulse ox. Inserted the scope for stump, rectal stump was very short, maybe only 3 to 5 cm in and immediately upon entry noted a mass, took a picture of this and then elected to do a snare polypectomy to get a bigger piece, got a good piece of snare polypectomy. Actually had to suction up and then pulled the scope out. I went back in, still large amount of the mass left. At this point, then I removed the scope. The patient was recovered in endoscopy suite, tolerated the procedure well. Job ID: [id number] DocumentID: [id number] Dictated Date: 12/20/2018 13:47:14 Occupational Therapist'S Assistant Date: 12/20/2018 18:42:02 Dictated By: BILL MONTANA DO
== END 2018-12-20 14:04 | disposition home or self-care (01) ==
LOC: ENDO 11:50
PROVIDERS: ATTEND Surgery
DX: D12.8 Benign neoplasm of rectum (principal); K62.5 Hemorrhage of anus and rectum; I10 Essential (primary) hypertension; I63.9 Cerebral infarction, unspecified; I20.9 Angina pectoris, unspecified; E66.9 Obesity, unspecified; F41.9 Anxiety disorder, unspecified; Z88.6 Allergy status to analgesic agent; Z88.1 Allergy status to other antibiotic agents; Z88.2 Allergy status to sulfonamides; Z91.040 Latex allergy status; Z68.36 Body mass index [BMI] 36.0-36.9, adult

== ENCOUNTER 2019-01-26 07:03 | Inpatient (IN) | payer MEDICARE, OTHER ==
[~2019-01-26] VITALS: Ht 172.7 cm; Wt 108.1 kg
[2019-01-26] VITALS (10 sets, daily range): BP systolic 90–160; BP diastolic 52–76
--- NOTE | 2019-01-26 07:25 | NUR ---
THIS RN ASKED ANESTHESIA JOSE READING, ASSISTANT VICE PRESIDENT IF THEY WANT TYPE AND SCREEN. JOSE MORRIS, ASSISTANT VICE PRESIDENT GAVE VERBAL ORDER FOR TYPE AND SCREEN.
[2019-01-26] MEDS: LACTATED RINGERS 1,000 ML IV PRN ×2 (07:30→09:45)
[2019-01-26] MEDS ORDERED: BUP/EPI 0.25% 1:200,000 (MARCAINE) 10 ML VIAL IJ ONE (07:35)
[2019-01-26] MEDS ORDERED: ONDANSETRON 4 MG/2 ML (SDV) Z0FRAN ONE (07:54)
[2019-01-26] MEDS ORDERED: SEVOFLURANE (ULTANE) 15 ML INHAL SOLN ONE ×8 (07:54→11:42)
[2019-01-26] MEDS ORDERED: LIDOCAINE PF 2% 5 ML (XYLOCAINE) VIAL ONE (07:54)
[2019-01-26] MEDS ORDERED: MIDAZOLAM 2 MG/2 ML (VERSED) VIAL ONE (07:54)
[2019-01-26] MEDS ORDERED: fentaNYL INJECTION 100 MCG/2 ML AMP ONE ×2 (07:54→10:05)
[2019-01-26] MEDS ORDERED: DEXAMETHASONE 10 MG/ML (DECADRON) 1 ML VIAL ONE (07:54)
[2019-01-26] MEDS ORDERED: proPOfol 200 MG/20 ML (DIPRIVAN) VIAL IV ONE (07:54)
[2019-01-26] MEDS ORDERED: BUPIVACAINE 0.5% 30 ML (SENSORCAINE) VIAL ONE (07:54)
[2019-01-26] MEDS ORDERED: ROCURONIUM 10 MG/ML 5 ML SYRINGE IV ONE (07:59)
[2019-01-26] MEDS ORDERED: ceFAZolin 2 GM/50 ML NS 50 ML ONE (09:02)
--- NOTE | 2019-01-26 09:06 | Progress Note-Pre Operative ---
Pre-Operative Progress Note H&P Reviewed The H&P was reviewed, patient examined and no changes noted. 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 We will also do a colonoscopy of the mucous fistula to make sure there are no polyps in there. In the future she may need removal of mucous fistula and get into the abdomen to help the removal of the entire rectum; if that is not done today. Pt understood all this and all questions answered to her satisfaction. We discussed risks and complications of today's procedure's not limited to pain, bleeding, infection, scar, intestinal perforation and need for more surgery. JEANETTE MAN DO Jan 26, 2019 09:06
[2019-01-26] MEDS ORDERED: GLYCOPYRROLATE 0.2 MG/ML (ROBINUL) 2 ML VIAL ONE (10:37)
[2019-01-26] MEDS ORDERED: NEOSTIGMINE 3 MG/3 ML VIAL ONE (10:37)
[2019-01-26] MEDS ORDERED: LACTATED RINGERS 1,000 ML IV SCH (11:03)
--- NOTE | 2019-01-26 11:09 | Progress Note-Post Operative ---
Post-Operative Progess Note Surgeon (s)/Health Care Manager (s) Surgeon JEANETTE MAN DO Health Care Manager: Shay Pre-Operative Diagnosis Large Tubovillous adenoma Post-Operative Diagnosis same pending path Procedure & Operative Findings Date of Procedure 01/26/19 Procedure Performed/Findings Perineal resection Colonoscopy of mucous Fistula Anesthesia Type GET Estimated Blood Loss Estimated blood loss (mL): 200ml Specimens/Packing Specimens Removed rectum and adenoma JEANETTE MAN DO Jan 26, 2019 11:09
[2019-01-26] MEDS ORDERED: ONDANSETRON 4 MG/2 ML (SDV) Z0FRAN IVP PRN ×2 (11:15→11:45)
[2019-01-26] MEDS ORDERED: morphine INJ 10 MG/ML 1ML (SYR OR VIAL) IVP PRN (11:15)
[2019-01-26] MEDS ORDERED: MEPERIDINE (DEMEROL) INJ 50 MG/ML IVP ONE (11:45)
[2019-01-26] MEDS ORDERED: HYDROmorphone 2 MG/ML VIAL (DILAUDID) IV ONE (11:45)
[2019-01-26] MEDS ORDERED: fentaNYL INJECTION 100 MCG/2 ML AMP IVP ONE (11:45)
[2019-01-26] MEDS ORDERED: PROMETHAZINE INJ 25 MG/ML (PHENERGAN) AMP IVP ONE (11:45)
--- NOTE | 2019-01-26 12:35 | NUR ---
transferred to [address] [place] [address] med surg. report from LOVE COPPOLA. patient orientated to room, call light within reach, Oxygen on, and surgical site dressing intact
[2019-01-26] MEDS ORDERED: HYDROcodone/APAP 5 MG/325 MG (LORTAB) TAB PO PRN (13:00)
[2019-01-26] MEDS: metroNIDAZOLE 500MG/100ML IVPB 100 ML IV SCH ×2 (13:36→21:26)
[2019-01-26] MEDS: ACETAMINOPHEN 500 MG TAB (TYLENOL) PO SCH ×2 (13:36→21:26)
[2019-01-26] MEDS: ceFAZolin 2 GM IV Premixed 50 ML IV SCH (16:29)
[2019-01-27] VITALS: BP 137/58
--- NOTE | 2019-01-27 01:13 | OPERATIVE REPORT ---
DATE OF SERVICE: PREOPERATIVE DIAGNOSES: 1. Large rectal tubular adenoma. 2. Mucous fistula. POSTOPERATIVE DIAGNOSES: 1. Large rectal tubular adenoma. 2. Mucous fistula. Pending pathology. PROCEDURE: 1. Perineal resection. 2. Colonoscopy of mucous fistula. SURGEON: Bill Montana DO. RECOVERY UNIT OPERATOR: Chuck Day DO. ANESTHESIA: General endotracheal tube. SPECIMEN: Portion of rectum and rectal mass/tubular adenoma. BLOOD LOSS: Approximately 200 mL. FLUIDS: Per anesthesia. POSTOPERATIVE CONDITION: Stable. INDICATION FOR PROCEDURE: The patient is a 68-year-old female who has a mass in the rectum, it was a very large polyp, biopsy just showed tubular adenoma, but could not tell if the base was something else and needed to get this removed. She also has a history of multiple abdominal surgeries, had a mucous fistula, has not had this looked at in quite a while with a history of possible colon cancer, diverticulitis, polyps and need for surveillance/screening of her mucous fistula. 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 We were unable to get to the end with a lot of mucus plugs and dried fecal material. She also had rectal mass removed with the rectum and sent to pathology as well as a rectal stricture. PROCEDURE NOTE: After informed consent was obtained, the patient was brought to the operating room, placed on table in lithotomy position. She was sterilely prepped and draped in normal fashion. Prior to prepping and draping, elected to start the colonoscopy on the mucous fistula, it was very small. Attempted to use a gastroscope, but could not and then able to use a pediatric gastroscope. Able to insert this and with little bit of air and fluid got to 50 cm, still not to the end but the patient had multiple mucus plugs with fecal material and could not get past all of these, so elected to just stop, did not see any polyps or any other obvious pathology. At this point, started the rectal resection (had already been prepped and draped, had thought maybe we would do a transanal resection of this polyp; however, felt the rectum, myself as well as Dr. Day (along with information from the colonoscopy) and it felt like the rectum was very short, so I elected to go ahead with the planned perineal resection. Made an incision going around the anus with Bovie electrocautery and then dissecting up the sides of the anus and rectum to try and remove this going through the anal sphincter using Bovie electrocautery and then doing some blunt dissection once we got into the perirectal fat. Using blunt dissection around this trying to get this out. Unfortunately, as I dissected further up, found that there was actually more intestine than we thought, got up probably about 10 cm. At this point (realizing that it was more colon than we thought and because the patient had not had a bowel prep plus we had not really discussed doing the abdominal portion of an APR; because we thought it was just a small portion) elected to come across the proximal portion of the rectum, used an Endo-CAMERON with two firings to come across and then able to get around the distal portion of the rectum and completely removed this. Pulled this out, opened on the outside table and actually found a stricture, which was why we felt it was only 4 to 5 cm deep. Did get the large rectal polyp in the specimen, all of this was sent to pathology. Hemostasis obtained using Bovie electrocautery. Copiously irrigated this area with normal saline and then elected to place a Nik drain and then closed the incision closing the deeper tissue and muscle with 0 Vicryl [id number] sutures and then closed the skin and sutured the G[place] in place, closing the skin with interrupted 2-0 nylon sutures. The patient tolerated the procedure and transferred to recovery room in stable condition. Sponge, instrument and needle count correct at the end of the case. Dr. Day assisted in this case helping to identify anatomy, hold anatomy out of the way and close the incision. Job ID: [id number] DocumentID: [id number] Dictated Date: 01/26/2019 14:42:58 Newsperson Date: 01/27/2019 01:12:53 Dictated By: DO RUTH OLIVO
[2019-01-27] MEDS: ceFAZolin 2 GM IV Premixed 50 ML IV SCH (01:44)
[2019-01-27 04:00] VITALS: BP 114/67
[2019-01-27] MEDS: ACETAMINOPHEN 500 MG TAB (TYLENOL) PO SCH ×3 (04:00→18:25)
--- NOTE | 2019-01-27 07:48 | Anesthesia-General Post-Op ---
General Patient Condition Mental Status/LOC: Same as Preop Cardiovascular: Satisfactory Nausea/Vomiting: Absent Respiratory: Satisfactory Pain: Controlled Complications: Absent Post Op Complications Complications None Follow Up Care/Instructions Patient Instructions None needed. Anesthesia/Patient Condition Patient Condition Patient is doing well, no complaints, stable vital signs, no apparent adverse anesthesia problems. No complications reported per nursing. CAITLIN ALBARRAN CRNA Jan 27, 2019 07:48
[2019-01-27 08:00] VITALS: BP 117/64
[2019-01-27] MEDS ORDERED: PANTOPRAZOLE 40 MG (PROTONIX) VIAL IVP SCH (09:00)
--- NOTE | 2019-01-27 09:43 | NUR ---
Pt is Mandaeism. Did not want Communion today but maybe tomorrow. Requested prayer.
--- NOTE | 2019-01-27 10:00 | NUR ---
DRESSING CHANGED TO RECTUM, BLOODY DRAINAGE FROM NIA DRAIN, 4X4 THEN ABD PAD APPLIED, COLOSTOMY PATENT WITH LIQ STOOL, DENIES PAIN AT THIS TIME, IV PATENT, WALKED IN G[place], B[place] WE[place]
--- NOTE | 2019-01-27 10:23 | Progress Note - Surgery ---
Subjective Time Seen by a Provider: 09:11 Subjective/Events-last exam Pt seen and examined, she tolerated soft diet last night without problems. She is using IS, but has not really ambulated yet. She stated she had some pain last night, but right now is ok. Review of Systems General: No Chills, No Night Sweats Pulmonary: No Dyspnea, No Cough Cardiovascular: No: Chest Pain, Palpitations Gastrointestinal: No: Nausea, Vomiting Objective Exam Vital Signs Date Time Temp Pulse Resp B/P (MAP) Pulse Ox O2 Delivery O2 Flow Rate FiO2 01/27/19 08:00 36.6 97 18 117/64 (81) 98 Nasal Cannula 2.00 01/27/19 04:00 36.2 88 20 114/67 (83) 95 Nasal Cannula 2.00 01/27/19 00:00 37.0 103 20 137/58 (84) 95 Nasal Cannula 2.00 01/26/19 21:20 Nasal Cannula 2.00 01/26/19 20:00 37.2 111 20 134/72 (92) 100 Nasal Cannula 2.00 01/26/19 16:00 36.6 84 20 160/76 (104) 100 Nasal Cannula 2.00 01/26/19 15:24 Room Air 01/26/19 12:39 35.0 80 16 107/71 (83) 96 Nasal Cannula 2.00 01/26/19 12:35 36.3 20 93/65 (74) 96 Nasal Cannula 2 01/26/19 12:35 Nasal Cannula 3 01/26/19 12:30 Nasal Cannula 3 01/26/19 12:20 20 99/58 (72) 95 OxyMask 2 01/26/19 12:15 Room Air 01/26/19 12:10 20 97/70 (79) 95 OxyMask 01/26/19 12:00 20 95/63 (74) 97 OxyMask 6 01/26/19 12:00 OxyMask 6 01/26/19 11:50 20 98/52 (67) 95 OxyMask 8 01/26/19 11:45 OxyMask 8 01/26/19 11:40 20 90/61 (71) 98 OxyMask 8 01/26/19 11:31 OxyMask 8 01/26/19 11:31 36.1 20 99/57 (71) 98 OxyMask 8 I & O 01/27/19 07:00 Intake Total 1710 ml Output Total 200 ml Balance 1510 ml Capillary Refill : Less Than 3 Seconds General Appearance: No Apparent Distress, WD/WN Respiratory: Lungs Clear, Normal Breath Sounds Gastrointestinal: normal bowel sounds, non tender, soft, other (ostomy pink and functioning) Assessment/Plan Assessment/Plan Assessment/Plan S/P Perineal Resection Encourage ambulation and continue IS use. Increase to regular diet, if pt's pain is controlled may be able to go home today. Clinical Quality Measures DVT/VTE Risk/Contraindication: Risk Factor Score Per Nursin RFS Level Per Nursing on Admit: 4+=Very High JEANETTE MAN DO Jan 27, 2019 10:22
[2019-01-27] MEDS: ENOXAPARIN 40 MG/0.4 ML (LOVENOX) SYR SC SCH (11:55)
[2019-01-27 12:00] VITALS: BP 116/74
[2019-01-27 16:00] VITALS: BP 137/63
--- NOTE | 2019-01-27 16:00 | NUR ---
DR MAN CALLED TO START HOME MEDS, ORDERS GIVEN
[2019-01-27] MEDS ORDERED: NON-FORMULARY MEDICATION 1 EA EA (Calcium Carbonate (Tums) 300 MG) PO PRN (19:00)
[2019-01-27] MEDS ORDERED: CALCIUM CARBONATE 500 MG (TUMS) TAB.CHEW PO PRN (19:15)
[2019-01-27 20:00] VITALS: BP 133/64
[2019-01-27] MEDS ORDERED: CYCLOBENZAPRINE 10 MG (FLEXERIL) TAB PO SCH (21:00)
[2019-01-27] MEDS ORDERED: NON-FORMULARY MEDICATION 1 EA EA (Naproxen Sodium (Aleve) 440 MG) PO SCH (21:00)
[2019-01-27] MEDS ORDERED: AZATHIOPRINE 100 MG PO SCH (21:00)
[2019-01-27] MEDS ORDERED: CYCLOBENZAPRINE HCL 10 MG PO SCH (21:00)
[2019-01-27] MEDS: AMITRIPTYLINE 25 MG (ELAVIL) TAB PO SCH (21:22)
[2019-01-27] MEDS: azaTHIOprine (IMURAN) 50 MG TAB PO SCH (21:22)
[2019-01-28] VITALS (7 sets, daily range): BP systolic 82–130; BP diastolic 51–80
[2019-01-28] MEDS: ACETAMINOPHEN 500 MG TAB (TYLENOL) PO SCH ×2 (04:00→12:27)
[2019-01-28] MEDS: NAPROXEN 250 MG (NAPROSYN) TABLET PO SCH ×2 (06:59→17:11)
[2019-01-28] MEDS ORDERED: MULTIVIT W/MINERALS TAB (THERAGRAN M) PO SCH (07:00)
[2019-01-28] MEDS ORDERED: meTOprolol TARTRATE 25 MG (LOPRESSOR) TABLET PO SCH (09:00)
[2019-01-28] MEDS ORDERED: CLOPIDOGREL 75 MG (PLAVIX) TABLET PO SCH (09:00)
[2019-01-28] MEDS ORDERED: CYCLOBENZAPRINE 10 MG (FLEXERIL) TAB PO SCH (09:00)
[2019-01-28] MEDS ORDERED: NON-FORMULARY MEDICATION 1 EA EA (Cyclobenzaprine HCl 5 MG) PO SCH (09:00)
[2019-01-28] MEDS ORDERED: PANTOPRAZOLE 40 MG (PROTONIX) TAB PO SCH (09:00)
[2019-01-28] MEDS: azaTHIOprine (IMURAN) 50 MG TAB PO SCH (09:02)
[2019-01-28] MEDS: AMITRIPTYLINE 25 MG (ELAVIL) TAB PO SCH (09:03)
[2019-01-28] MEDS: ENOXAPARIN 40 MG/0.4 ML (LOVENOX) SYR SC SCH (12:27)
--- NOTE | 2019-01-28 15:41 | Progress Note - Surgery ---
CALVIN CUNNINGHAM,MED STUDENT 01/28/19 1541: Subjective Date Seen by a Provider: Jan 28, 2019 Time Seen by a Provider: 02:45 Subjective/Events-last exam Erika is day 2 status post perineal resection. She states her abdominal pain is improved as well as her back pain. She has been tolerating a soft food diet well. She has been able to ambulate to the bathroom and around the halls with a cane. She states her mucosal stump has decreased drainage since yesterday. She does note some calf tenderness of palpation but she states that is chronic for her. Review of Systems General: No Chills, No Night Sweats HEENT: No Head Aches, No Visual Changes Pulmonary: No Dyspnea Cardiovascular: No: Chest Pain, Edema Gastrointestinal: Abdominal Pain (improved); No: Nausea, Vomiting Genitourinary: No Dysuria, No Incontinence, No Retention Musculoskeletal: No: back pain Objective Exam Vital Signs Date Time Temp Pulse Resp B/P (MAP) Pulse Ox O2 Delivery O2 Flow Rate FiO2 01/28/19 12:00 35.9 79 18 82/51 (61) 99 Room Air 01/28/19 09:00 97 Room Air 01/28/19 08:05 36.0 99 16 116/59 (78) 96 Room Air 01/28/19 05:34 36.0 101 18 130/80 (97) 97 Room Air 01/28/19 04:00 36.0 101 18 130/80 (97) 97 Room Air 01/28/19 00:13 35.8 102 20 113/62 (79) 93 Room Air 01/27/19 20:00 37.0 104 20 133/64 (87) 94 Room Air 01/27/19 16:00 36.7 108 18 137/63 (87) 94 Room Air I & O 01/28/19 07:00 Intake Total 1585 ml Output Total 300 ml Balance 1285 ml Capillary Refill : Less Than 3 Seconds General Appearance: No Apparent Distress, WD/WN HEENT: PERRL/EOMI Respiratory: Lungs Clear, Normal Breath Sounds Cardiovascular: Regular Rate, Rhythm, No Murmur Peripheral Pulses: 2+ Radial Pulses (R), 2+ Radial Pulses (L) Gastrointestinal: normal bowel sounds, non tender, soft, other (ostomy pink and functioning) Extremity: No Pedal Edema, Calf Tenderness Neurologic/Psychiatric: Alert, Oriented x3, Normal Mood/Affect Skin: Normal Color, Warm/Dry Lymphatic: No Adenopathy Assessment/Plan Assessment/Plan Assessment/Plan S/P Perineal Resection Patient is ambulating and eating well. Pain is well controlled. Will plan to discharge today and see in Dr. Montana's office in 1 week. Clinical Quality Measures DVT/VTE Risk/Contraindication: Risk Factor Score Per Nursin RFS Level Per Nursing on Admit: 4+=Very High BILL MONTANA DO 01/28/19 1548: Subjective Time Seen by a Provider: 02:45 Subjective/Events-last exam Pt states abdominal pain is better, she was walking around today without difficulties. Objective Exam Respiratory: Lungs Clear, Normal Breath Sounds Gastrointestinal: non tender, soft; No distended Assessment/Plan Assessment/Plan Assessment/Plan Will d/c home. Supervisory-Addendum Brief Verification & Attestation Participated in pt care: history, MDM, physical Personally performed: exam, history, MDM Care discussed with: Medical Student Procedures: n/a Verification and Attestation of Medical Student E/M Service A medical student performed and documented this service in my presence. I reviewed and verified all information documented by the medical student and made modifications to such information, when appropriate. I personally performed the physical exam and medical decision making. Bill Montana, Jan 28, 2019,15:48 CALVIN CUNNINGHAM,MED STUDENT Jan 28, 2019 15:41 BILL MONTANA DO Jan 28, 2019 15:48
--- NOTE | 2019-01-28 15:45 | Discharge Inst-Surgical ---
Discharge Inst-Surgical Reconcile Patient Problems Problems Reviewed?: No Depart Medication/Instructions New, Converted or Re-Newed RX: Other (No rx needed, take tylenol at home) Patient Instructions Follow up Appt: Make appointment for 1 week. [phone] Instructions: No lifting greater than 20 pounds. No strenuous activity. May shower in 24 hours, no tub bath or soaking. Use incentive spirometer at home as directed. No Smoking Skin/Wound Care: May remove bandages in am. Drain will remain in place in rectal area for a few weeks, come in to office to have checked. Symptoms to Report: Appetite Changes, Extremity Discoloration, Numbness/Tingling, Swelling Increased, Bleeding Excessive, Eyesight Changes, Pain Increased, Urine Color Change, Constipation(Persistent), Fever over 101 degree F, Pain/Pressure in chest, Urinating Difficulty, Cough Up/Vomit Blood, Heart Beat Irreg/Pounding, Pain/Pressure in jaw, Cramps in feet or legs, Lightheadedness, Pain/Pressure in shoulder, Diarrhea(Persistent), Memory Changes Suddenly, Questions/Concerns, Weight gain consecutive days, Dizziness/Fainting, Nausea/Vomiting, Shortness of Breath, Weight gain over 2 pounds If questions or concerns contact your physician Or seek help at emergency department. Activity Activity as Tolerated: Yes Walking Assistive Device: Cane Activity Instructions: Avoid Stress to Incision Driving Instructions: No Driving/Refer to Dr. Degroot Discharge Diet: No Restrictions If Any Problems/Questions/Issu: Contact Your Physician, Go to Emergency Room Skin/Wound Care Infection Signs and Symptoms: Increased Redness, Foul Odor of Wound, Increased Drainage, Skin Itchy or Has a Rash, Increased Swelling, Temperature Above 101 F Bathing Instructions: Shower Stitches/[place]/Dermabond Dis: Care of Stitches JEANETTE MAN DO Jan 28, 2019 15:45
== END 2019-01-28 17:19 | disposition home or self-care (01) | DRG 334 ==
LOC: SDC 07:03 → 4TH 11:03
PROVIDERS: ADMIT Surgery; ATTEND Surgery
PROC: 0DTQ0ZZ Resection of Anus, Open Approach (ICD-10-PCS; 2019-01-26)
PROC: 0DTP0ZZ Resection of Rectum, Open Approach (ICD-10-PCS; principal; 2019-01-26 08:30)
DX: D12.8 Benign neoplasm of rectum (principal); K62.4 Stenosis of anus and rectum; Z93.3 Colostomy status; I10 Essential (primary) hypertension; R01.1 Cardiac murmur, unspecified; I69.398 Other sequelae of cerebral infarction; H54.7 Unspecified visual loss; K21.9 Gastro-esophageal reflux disease without esophagitis; E66.9 Obesity, unspecified; M06.9 Rheumatoid arthritis, unspecified; Z68.36 Body mass index [BMI] 36.0-36.9, adult; I25.2 Old myocardial infarction; Z87.891 Personal history of nicotine dependence
CPT/HCPCS: 86850; 86900; 86901; 88307; 94664

== ENCOUNTER → 2020-07-16 | Outpatient (CLI) | payer MEDICARE, OTHER ==
[~2020-07-16] MED LIST changes: +ALPR.25T PO; -ALPR0.254 PO; +AZAT50TA16 PO; +AZIT250T12; +BENZ100C18 PO; +Benzonatate; -IBUP-2055 PO; +IBUP-2185 PO; +IBUP-2473 PO; +MULT-1029 PO; +MULT-567 PO; -MULT1TAB69 PO; +NAPR-1033 PO; -TRAM50TA2 PO; +TRM50T PO
--- NOTE | 2020-07-16 14:03 | Diagnostic Imaging Report ---
INDICATION: Pleural effusion. Comparison made with prior examination of 05/21/2020. FINDINGS: There is cardiomegaly. Lungs are clear. No pleural effusion or pneumothorax. Mediastinum is unremarkable. IMPRESSION: No acute cardiopulmonary abnormality. Cardiomegaly and some tortuosity of the thoracic aorta. Dictated by: Dictated on workstation # [id number]
== END ==
LOC: RAD 11:46
PROVIDERS: ATTEND Surgery
DX: J90 Pleural effusion, not elsewhere classified (principal); I51.7 Cardiomegaly
CPT/HCPCS: 71046

== ENCOUNTER 2020-09-08 00:12 | Emergency (ER) | payer MEDICARE, OTHER ==
[2020-09-08] MEDS ORDERED: NS IV 1000 ML 1,000 ML IV STA (00:35)
[2020-09-08] MEDS ORDERED: PANTOPRAZOLE 40 MG (PROTONIX) VIAL IV STA (00:35)
--- NOTE | 2020-09-08 00:41 | ED GI ---
General Chief Complaint: Abdominal/GI Problems Stated Complaint: GI PROBLEMS Nursing Triage Note: Pt brought in by ems due to having blood in her colostomy bag. Pt said she noticed the blood around 1500 yesterday afternoon and felt like she was going to pass out tonight while going to the bathroom Sepsis Screen: No Definite Risk Source of Information: Patient, EMS, Old Records History of Present Illness Date Seen by Provider: September 08, 2020 Time Seen by Provider: 00:14 Initial Comments 69 yo female presenting with complaints of diffuse aching pain in abdomen off and on since . Then since around 1499 afternoon she started passing blood clots and blood into her colostomy bag. She has no pain or burning with urination. She denies abdominal pain now. She does have a history of cer vical cancer with hysterectomy and colon cancer with colostomy and colon resection. She has had more of her colon removed due to bleeding since the original surgery. She has had a previous stroke and takes Plavix as a blood thinner but it h as been making her bleed and bruise too easily so she was just changing to taking it every 48 hours instead of daily and has not had a dose for 2 days. She denies fever, chills, nausea, vomiting, shortness of breath, cough. She denies any abdominal pain currently. She was feeling light headed at home but admits to hyperventilating and being anxious about seeing the blood in her colostomy. Allergies and Home Medications Allergies Coded Allergies: morphine (Verified Allergy, Severe, RESP DISTRESS/BURNING AT IV SITE, 05/18/20) PER ABDON JUDGE PATIENT ABLE TO TAKE LORTAB Sulfa (Sulfonamide Antibiotics) (Verified Allergy, Mild, HIVES, 12/17/18) ampicillin (Verified Allergy, Mild, HIVES, Pt has rec. Ceftriaxone in the past, 01/26/19) latex (Verified Allergy, Mild, BLISTERS, 12/17/18) Home Medications Amitriptyline HCl 25 Mg Tablet, 25 MG PO DAILY, (Reported) Azathioprine 50 Mg Tablet, 100 MG PO BID, (Reported) TAKES 2 (50MG) TABS Benzonatate 100 Mg Capsule, 100 MG PO TID, (Reported) Clopidogrel Bisulfate 75 Mg Tablet, 75 MG PO Q48H, (Reported) Cyclobenzaprine HCl 5 Mg Tablet, 5-10 MG PO BID PRN for MUSCLE SPASMS, (Reported) Ibuprofen 200 Mg Capsule, 800 MG PO Q8H PRN for PAIN-MILD (1-4), (Reported) Metoprolol Tartrate 25 Mg Tablet, 25 MG PO DAILY, (Reported) Multivit-Min/FA/Lycopene/Lut 1 Each Tablet, 1 EACH PO DAILY, (Reported) Naproxen Sodium 220 Mg Tablet, 220 MG PO Q8H PRN for PAIN-MILD (1-4), (Reported) Pantoprazole Sodium 40 Mg Tablet.dr, 40 MG PO DAILY Prescribed by: BERNA MOE on 09/08/20 0237 Prednisone 5 Mg Tablet, 5-10 MG PO DAILY PRN for RA PAIN, (Reported) Patient Home Medication List Home Medication List Reviewed: Yes Review of Systems Review of Systems Constitutional: No chills, No diaphoresis, No fever EENTM: No Symptoms Reported Respiratory: No Symptoms Reported Cardiovascular: No Symptoms Reported Gastrointestinal: See HPI Genitourinary: No Symptoms Reported Musculoskeletal: no symptoms reported Skin: no symptoms reported Psychiatric/Neurological: No Symptoms Reported Endocrine: No Symptoms Reported Hematologic/Lymphatic: Easy Bleeding, Easy Bruising Past Tyyhmyz-Rkgwou-Janpwp Hx Past Med/Social Hx: Reviewed Nursing Past Med/Soc Hx Patient Social History Alcohol Use: Denies Use Type Used: Cigarettes Former Smoker, Quit: Dec 17, 1992 2nd Hand Smoke Exposure: Yes Recent Infectious Disease Expo: No Recent Hopitalizations: No Immunizations Up To Date Tetanus Booster (TDap): Unknown Date of Pneumonia Vaccine: Feb 05, 2015 Date of Influenza Vaccine: Feb 02, 2020 Seasonal Allergies Seasonal Allergies: Yes Past Medical History Surgeries: Yes Bowel Surgery, Hysterectomy Respiratory: No Currently Using CPAP: No Currently Using BIPAP: No Cardiac: Yes Heart Attack, Hypertension Neurological: Yes Stroke Reproductive Disorders: Yes Sexually Transmitted Disease: No HIV/AIDS: No Genitourinary: No Gastrointestinal: Yes (COLECTOMY FOR POLYPS-HAD POST OP BLOOD CLOT/GANGREEN) Abdominal Hernia, Gastroesophageal Reflux, Gastrointestinal Bleed, Chronic Diarrhea, Polyps Musculoskeletal: Yes Arthritis, Rheumatoid Arthritis Endocrine: No HEENT: No (GLASSES) Loss of Vision: Bilateral Hearing Impairment: Denies Cancer: Yes Colon What Type of Treatment Did You: Surgical Intervention Psychosocial: No Anxiety Integumentary: Yes (LESIONS REMOVED FROM HANDS AND FACE) Blood Disorders: Yes (Iron Deficiency Anemia) Adverse Reaction/Blood Tranf: No (HAS HAD BLOOD WITH NO REACTION) Family Medical History Abdominal aortic aneurysm Alcoholism G8 BROTHER (22) G8 BROTHER (17) Alzheimer's disease 19 MOTHER (195 2012) Cataracts 19 MOTHER (2010) Deafness or hearing loss 19 MOTHER (HARD OF HEARING ) Dementia 19 MOTHER Diabetes mellitus 19 FATHER 19 MOTHER Drug abuse G8 BROTHER G8 BROTHER Gastroenteritis 19 MOTHER Headache disorder 19 MOTHER G8 BROTHER Hypercholesterolemia G8 SISTER Myocardial infarction 19 FATHER (IN HIS 60) Osteoporosis 19 MOTHER Prostate cancer 19 FATHER Heart Disease, Cancer, Diabetes, GI Disease Physical Exam Vital Signs Vital Signs - First Documented 09/08/20 00:16 Temp 36.3 Pulse 89 Resp 18 B/P (MAP) 150/94 (112) Pulse Ox 100 O2 Delivery Room Air Capillary Refill : Less Than 3 Seconds Height/Weight/BMI Height: 5'8.00" Weight: 239lbs. 5.0oz. 108.583691aw; 36.63 BMI Method:Stated General Appearance: WD/WN, no apparent distress HEENT: pharynx normal Neck: non-tender, supple Respiratory: chest non-tender, lungs clear, normal breath sounds, no respiratory distress, no accessory muscle use Cardiovascular: normal peripheral pulses, regular rate, rhythm Gastrointestinal: normal bowel sounds, non tender, soft, no pulsatile mass; No distended, No guarding, No rebound, No tenderness; other (colostomy bag with blood in the bag) Extremities: normal range of motion, normal capillary refill Neurologic/Psychiatric: alert, oriented x 3 Skin: normal color, warm/dry Images 1 - colostomy site present with apparent blood in the bag. Progress/Results/Core Measures Results/Orders Lab Results Laboratory Tests Test 09/08/20 00:23 09/08/20 01:58 09/08/20 02:22 Range/Units White Blood Count 9.1 4.3-11.0 10^3/uL Red Blood Count 3.36 L 4.35-5.85 10^6/uL Hemoglobin 9.8 L 9.0 L 11.5-16.0 G/DL Hematocrit 32 L 29 L 35-52 % Mean Corpuscular Volume 95 80-99 FL Mean Corpuscular Hemoglobin 29 25-34 PG Mean Corpuscular Hemoglobin Concent 31 L 32-36 G/DL Red Cell Distribution Width 16.4 H 10.0-14.5 % Platelet Count 210 130-400 10^3/uL Mean Platelet Volume 10.3 7.4-10.4 FL Neutrophils (%) (Auto) 90 H 42-75 % Lymphocytes (%) (Auto) 6 L 12-44 % Monocytes (%) (Auto) 4 0-12 % Eosinophils (%) (Auto) 0 0-10 % Basophils (%) (Auto) 0 0-10 % Neutrophils # (Auto) 8.2 H 1.8-7.8 X 10^3 Lymphocytes # (Auto) 0.5 L 1.0-4.0 X 10^3 Monocytes # (Auto) 0.3 0.0-1.0 X 10^3 Eosinophils # (Auto) 0.0 0.0-0.3 10^3/uL Basophils # (Auto) 0.0 0.0-0.1 10^3/uL Neutrophils % (Manual) 92 % Lymphocytes % (Manual) 6 % Monocytes % (Manual) 1 % Eosinophils % (Manual) 1 % Prothrombin Time 13.8 12.2-14.7 SEC INR Comment 1.0 0.8-1.4 Activated Partial Thromboplast Time < 20 L 24-35 SEC Sodium Level 141 135-145 MMOL/L Potassium Level 3.9 3.6-5.0 MMOL/L Chloride Level 106 98-107 MMOL/L Carbon Dioxide Level 22 21-32 MMOL/L Anion Gap 13 5-14 MMOL/L Blood Urea Nitrogen 19 H 7-18 MG/DL Creatinine 1.10 0.60-1.30 MG/DL Estimat Glomerular Filtration Rate 49 BUN/Creatinine Ratio 17 Glucose Level 148 H 70-105 MG/DL Calcium Level 9.9 8.5-10.1 MG/DL Corrected Calcium 10.1 8.5-10.1 MG/DL Total Bilirubin 0.4 0.1-1.0 MG/DL Aspartate Amino Transf (AST/SGOT) 22 5-34 U/L Alanine Aminotransferase (ALT/SGPT) 14 0-55 U/L Alkaline Phosphatase 82 40-136 U/L Total Protein 6.6 6.4-8.2 GM/DL Albumin 3.8 3.2-4.5 GM/DL Lipase 29 8-78 U/L Urine Color YELLOW Urine Clarity CLOUDY Urine pH 7.0 5-9 Urine Specific [place] <=1.005 1.016-1.022 Urine Protein NEGATIVE NEGATIVE Urine Glucose (UA) NEGATIVE NEGATIVE Urine Ketones NEGATIVE NEGATIVE Urine Nitrite NEGATIVE NEGATIVE Urine Bilirubin NEGATIVE NEGATIVE Urine Urobilinogen 0.2 < = 1.0 MG/DL Urine Leukocyte Esterase 2+ H NEGATIVE Urine RBC (Auto) NEGATIVE NEGATIVE Urine RBC NONE /HPF Urine WBC 50-100 H /HPF Urine Squamous Epithelial Cells 5-10 /HPF Urine Crystals PRESENT H /LPF Urine Amorphous Sediment LARGE PADMAJA PHOSPHATE H /LPF Urine Bacteria TRACE /HPF Urine Casts PRESENT /LPF Urine Granular Casts 5-10 H /LPF Urine Mucus NEGATIVE /LPF Urine Culture Indicated YES My Orders Orders - BERNA MOE MD Comprehensive Metabolic Panel (09/08/20 00:34) Lipase (09/08/20 00:34) Ua Culture If Indicated (09/08/20 00:34) Ed Iv/Invasive Line Start (09/08/20 00:34) Cbc With Automated Diff (09/08/20 00:34) Ct Abdomen/Pelvis W (09/08/20 00:34) Protime With Inr (09/08/20 00:34) Partial Thromboplastin Time (09/08/20 00:34) Ns Iv 1000 Ml (Sodium Chloride 0.9%) (09/08/20 00:35) Pantoprazole Injection (Protonix Injecti (09/08/20 00:35) Iohexol Injection (Omnipaque 350 Mg/Ml 1 (09/08/20 00:45) Received Contrast (Hold Metformin- Contr (09/08/20 00:45) Sodium Chloride Flush (Catheter Flush Sy (09/08/20 00:45) Ns (Ivpb) (Sodium Chloride 0.9% Ivpb Bag (09/08/20 00:45) Manual Differential (09/08/20 00:23) Urine Culture (09/08/20 01:58) Hemoglobin And Hematocrit (09/08/20 02:22) Medications Given in ED Current Medications Medications Dose Ordered Sig/Mar Route Start Time Stop Time Status Last Admin Dose Admin Iohexol 100 ml ONCE ONCE IV 09/08/20 00:45 09/08/20 00:46 DC 09/08/20 01:25 100 ML Sodium Chloride 10 ml NEEDED PRN IV 09/08/20 00:45 09/08/20 03:16 DC 09/08/20 01:26 10 ML Sodium Chloride 100 ml ONCE ONCE IV 09/08/20 00:45 09/08/20 00:46 DC 09/08/20 01:25 80 ML Vital Signs/I&O 09/08/20 09/08/20 00:16 02:41 Temp 36.3 Pulse 89 92 Resp 18 16 B/P (MAP) 150/94 (112) 153/95 Pulse Ox 100 99 O2 Delivery Room Air Room Air Blood Pressure Mean: 112 Progress Progress Note #1: Progress Note Obtain basic labs, coags, UA, and CT scan of abdomen/pelvis. Give IVF for hydration and Protonix for possible gastritis. Differential diagnosis includes Upper GI bleeding from ulcer/gastritis, colitis, diverticulitis, ischemic bowel, colon cancer Progress Note #2: Time: 02:04 Progress Note CBC shows stable anemia with Hgb at 9.8. This is similar to prior labs. Chemistry stable as well without significant abnormality to account for her GI bleeding. She remains hemodynamically stable. CT scan report shows no bowel obstruction or colitis. Patient has been up to the bathroom and emptied some more melanotic stool from her ostomy bag, however it has not been as much as what was present on arrival. She also was not feeling dizzy or light headed when she got up to go to the bathroom. Will recheck Hgb/Hct and patient would like to go home and follow up as outpatient provided she can do that. If the Hgb is not showing a significant drop over the last 2 hours, since she is hemodynamically stable and has been holding Plavix could have her call Thursday for follow up with surgeon and hold Plavix until bleeding stops and she sees what the surgeon says on Thursday. If they can get her in for scope or procedure right away then they may want her to hold it until then otherwise restart at [id number] on Thursday after checking with surgeon, provided the bleeding has stopped from her colostomy site. Progress Note #3: Time: : Progress Note Hgb repeat is 9.0 and UA shows LE with WBC but pt continues to deny UTI symptoms. She will wait for culture results to see if needs antibiotic for urine. She was feeling comfortable with going home and would prefer that to admit. Will Call Dr. Man Thursday about follow up and counseled on return precautions. Will prescribe PPI in case this is from gastritis and hold plavix until she checks with surgeon. Diagnostic Imaging Diagonstic Imaging: CT Plain Films/CT/US/NM/MRI: abdomen, pelvis Comments Impression: 1. The patient appears to have two ostomies in the right lower quadrant, both colostomies. The more cephalad ostomy contains some redundant subcutaneous: Beneath the ostomy with dense intraluminal nodules that may be blood clots. A site of bleeding is not definitely identified. There is no evidence of bowel obstruction or colitis. Read by radiologist Dr. Ryan haynes MD. At 1:44 AM and faxed at 2:02 AM Reviewed: Reviewed Night [facility] Study Departure Impression Primary Impression: GI bleed Qualified Codes: K92.2 - Gastrointestinal hemorrhage, unspecified Additional Impression: Colostomy hemorrhage Disposition: HOME, SELF-CARE Condition: Stable Departure-Patient Inst. Decision time for Depature: 02:37 Referrals: JEANETTE MAN MAXWELL MD (PCP/Family) Primary Care Physician Patient Instructions: Gastrointestinal Bleeding (DC) Add. Discharge Instructions: Continue on PPI medicine for possible bleeding from stomach lining. Hold your Plavix until you can check with surgeon on Thursday and see when they can get you in for a scope and evaluation. If the bleeding has stopped then after you check with the surgeon on Thursday, unless he wants you to hold it until he sees you then you could restart the plavix at taking it every other day. Follow up with Dr. Sweet for continued concerns as well. If you have worsening bleeding, abdominal pain, fever over 101 F then return or seek medical care for further evaluation. All discharge instructions reviewed with patient and/or family. Voiced u nderstanding. Scripts Pantoprazole Sodium (Pantoprazole Sodium) 40 Mg Tablet. 40 MG PO DAILY for GI bleeding for 30 Days, #30 TAB 0 Refills Prov: BERNA MOE MD 09/08/20 BERNA MOE MD September 08, 2020 00:41
[2020-09-08] MEDS ORDERED: NS 100 ML (IVPB) BAG IV ONE (00:45)
[2020-09-08] MEDS ORDERED: HOLD METFORMIN - RECEIVED CONTRAST 20 ML VIAL IV SCH (00:45)
[2020-09-08] MEDS ORDERED: CATHETER FLUSH 10 ML SYR IV PRN (00:45)
[2020-09-08] MEDS ORDERED: IOHEXOL 350 MG/ML 100 ML (OMNIPAQUE 350) VIAL IV ONE (00:45)
[2020-09-08 00:47] LABS: BASOPHILS % (AUTO) 0 % (0-10); EOSINOPHILS % (AUTO) 0 % (0-10); HEMATOCRIT 32 % (35-52); HEMOGLOBIN 9.8 G/DL (11.5-16.0); LYMPHOCYTES % (AUTO) 6 % (12-44); MEAN CORPUSCULAR HEMOGLOBIN 29 PG (25-34); MEAN CORPUSCULAR HGB CONC 31 G/DL (32-36); MEAN CORPUSCULAR VOLUME 95 FL (80-99); MEAN PLATELET VOLUME 10.3 FL (7.4-10.4); MONOCYTES % (AUTO) 4 % (0-12); NEUTROPHILS # (AUTO) 8.2 X 10^3 (1.8-7.8); NEUTROPHILS % (AUTO) 90 % (42-75); PLATELET COUNT 210 10^3/uL (130-400); WHITE BLOOD COUNT 9.1 10^3/uL (4.3-11.0)
[2020-09-08 00:48] LABS: LYMPHOCYTES # (AUTO) 0.5 X 10^3 (1.0-4.0); MONOCYTES # (AUTO) 0.3 X 10^3 (0.0-1.0)
[2020-09-08 01:02] LABS: PARTIAL THROMBOPLASTIN TIME < 20 SEC (24-35); PROTHROMBIN TIME PATIENT 13.8 SEC (12.2-14.7)
[2020-09-08 01:06] LABS: EOSINOPHILS % (MANUAL) 1 %; LYMPHOCYTES % (MANUAL) 6 %; MONOCYTES % (MANUAL) 1 %; NEUTROPHILS % (MANUAL) 92 %
[2020-09-08 01:07] LABS: BILIRUBIN,TOTAL 0.4 MG/DL (0.1-1.0); CALCIUM 9.9 MG/DL (8.5-10.1); CREATININE SERUM 1.1 MG/DL (0.60-1.30); POTASSIUM 3.9 MMOL/L (3.6-5.0)
[2020-09-08 01:08] LABS: ALBUMIN 3.8 GM/DL (3.2-4.5); TOTAL PROTEIN 6.6 GM/DL (6.4-8.2)
[2020-09-08 02:13] LABS: AMORPHOUS SEDIMENT,UR LARGE AMOR PHOSPHATE /LPF; BACTERIA,URINE TRACE /HPF; BILIRUBIN,URINE NEGATIVE (NEGATIVE); CLARITY,URINE CLOUDY; COLOR,URINE YELLOW; GLUCOSE, URINE (UA) NEGATIVE (NEGATIVE); KETONES,URINE NEGATIVE (NEGATIVE); LEUKOCYTE ESTERASE ,URINE 2+ (NEGATIVE); NITRITE,URINE NEGATIVE (NEGATIVE); PROTEIN,URINE NEGATIVE (NEGATIVE); WBC,URINE 50-100 /HPF
[2020-09-08] MEDS ORDERED: PANT40TA52 PO (02:37)
[2020-09-08 02:41] VITALS: BP 153/95
--- NOTE | 2020-09-08 08:01 | Diagnostic Imaging Report ---
EXAMINATION: CT abdomen and pelvis with intravenous contrast. TECHNIQUE: Multiple contiguous axial images were obtained through the abdomen and pelvis after the uneventful administration of intravenous contrast. All CT scans use one or more of the following dose optimizing techniques: automated exposure control, MA and/or KvP adjustment based on patient size and exam type or iterative reconstruction. HISTORY: gi bleeding into colostomy, abdominal pain x 24 hours COMPARISON: None available. FINDINGS: Lung bases: Bibasilar dependent atelectasis. Solid organs: The liver is normal without focal lesion. The gallbladder is normal. There is no biliary ductal dilation. Pancreas is normal. Spleen is normal. Adrenal glands are normal. The kidneys are normal without hydronephrosis. Bowel: The stomach and small bowel are normal without obstruction. Surgical changes of the colon with what appear to be 2 right lower quadrant colostomies. The more cephalad colostomy contains redundant loops of bowel with a few hyperdense nodules which could represent inspissated stool versus clotted blood products. Peritoneum: There is no intraperitoneal free fluid or free air. No suspicious lymphadenopathy. Vasculature: Calcification of the aorta without aneurysm. Musculoskeletal: Degenerative changes of the spine without suspicious osseous lesion or compression fracture. Pelvis: The uterus is surgically absent. No adnexal mass. The urinary bladder is normal. IMPRESSION: 1. Surgical changes of the colon with what appear to be 2 right lower quadrant colostomies. The more cephalad colostomy contains redundant loops of colon with hyperdense nodules which may represent inspissated stool or clotted blood products. 2. No bowel obstruction. 3. Agree with preliminary interpretation. Dictated by: Dictated on workstation # [id number]
== END 2020-09-08 03:15 | disposition home or self-care (01) ==
LOC: EDUNIT# 00:12 → ER FS 00:15
DX: K92.2 Gastrointestinal hemorrhage, unspecified (principal); K94.01 Colostomy hemorrhage; I25.2 Old myocardial infarction; I10 Essential (primary) hypertension; F41.9 Anxiety disorder, unspecified; K21.9 Gastro-esophageal reflux disease without esophagitis; Z86.73 Personal history of transient ischemic attack (TIA), and cerebral infarction without residual deficits; Z88.5 Allergy status to narcotic agent; Z88.2 Allergy status to sulfonamides; Z88.1 Allergy status to other antibiotic agents; Z91.040 Latex allergy status; Z87.891 Personal history of nicotine dependence; Z85.038 Personal history of other malignant neoplasm of large intestine; Z79.52 Long term (current) use of systemic steroids; Z79.899 Other long term (current) drug therapy
CPT/HCPCS: 36415; 74177; 80053; 81000; 83690; 85007; 85014; 85018; 85027; 85610; 85730; 87088; 96361; 96374

== ENCOUNTER 2020-09-28 05:39 | Outpatient (CLI) | payer MEDICARE, OTHER ==
[~2020-09-28] VITALS: Ht 172.7 cm; Wt 105.7 kg
[~2020-09-28 05:39] MED LIST changes: +PANT40TA52 PO
[2020-09-28] MEDS ORDERED: PANT40TA52 PO (10:46)
== END 2020-09-28 12:18 | disposition home or self-care (01) ==
LOC: PREOP 05:39
PROVIDERS: ATTEND Surgery
DX: Z01.818 Encounter for other preprocedural examination (principal)

== ENCOUNTER 2020-10-03 06:38 | Inpatient (IN) | payer MEDICARE, OTHER ==
[2020-10-03] VITALS (11 sets, daily range): BP systolic 105–147; BP diastolic 58–98
[~2020-10-03] VITALS: Ht 172.7 cm; Wt 105.7 kg
[~2020-10-03 06:38] MED LIST changes: +MIDAZOLAM 2 MG/2 ML (VERSED) VIAL ONE; +ONDANSETRON 4 MG/2 ML (SDV) Z0FRAN ONE; +ROCURONIUM 10 MG/ML 5 ML SYRINGE IV ONE; +SEVOFLURANE (ULTANE) 15 ML INHAL SOLN ONE; +fentaNYL INJ 100 MCG/2 ML AMP ONE; +proPOfol 200 MG/20 ML (DIPRIVAN) VIAL IV ONE
[2020-10-03] MEDS ORDERED: LIDOCAINE PF 2% 5 ML (XYLOCAINE) VIAL ONE (06:41)
[2020-10-03] MEDS: LACTATED RINGERS 1,000 ML IV PRN ×4 (07:05→14:00)
[2020-10-03] MEDS ORDERED: LIDOCAINE/EPI 1%-1:200,000 (XYLOCAINE) 30 ML VIAL ONE (07:05)
[2020-10-03] MEDS ORDERED: ceFAZolin 2 GM IV Premixed 50 ML IV ONE (07:15)
[2020-10-03 07:33] LABS: BASOPHILS % (AUTO) 0 % (0-10); EOSINOPHILS # (AUTO) 0.2 10^3/uL (0.0-0.3); EOSINOPHILS % (AUTO) 3 % (0-10); HEMATOCRIT 23 % (35-52); HEMOGLOBIN 7.2 g/dL (11.5-16.0); LYMPHOCYTES # (AUTO) 0.9 10^3/uL (1.0-4.0); LYMPHOCYTES % (AUTO) 12 % (12-44); MEAN CORPUSCULAR HEMOGLOBIN 28 pg (25-34); MEAN CORPUSCULAR HGB CONC 31 g/dL (32-36); MEAN CORPUSCULAR VOLUME 90 fL (80-99); MEAN PLATELET VOLUME 9.9 fL (9.0-12.2); MONOCYTES # (AUTO) 0.5 10^3/uL (0.0-1.0); MONOCYTES % (AUTO) 7 % (0-12); NEUTROPHILS # (AUTO) 5.7 10^3/uL (1.8-7.8); NEUTROPHILS % (AUTO) 78 % (42-75); PLATELET COUNT 196 10^3/uL (130-400); WHITE BLOOD COUNT 7.3 10^3/uL (4.3-11.0)
--- NOTE | 2020-10-03 08:12 | Progress Note-Pre Operative ---
Pre-Operative Progress Note H&P Reviewed The H&P was reviewed, patient examined and no changes noted. Time Seen by Provider: 08:08 Date H&P Reviewed: Oct 03, 2020 Time H&P Reviewed: 08:09 Pre-Operative Diagnosis: Mucous Fistula, Parastomal hernia JEANETTE MAN DO Oct 03, 2020 08:12
[2020-10-03] MEDS ORDERED: fentaNYL INJ 100 MCG/2 ML AMP ONE ×2 (08:53→12:42)
[2020-10-03] MEDS ORDERED: ROCURONIUM 10 MG/ML 5 ML SYRINGE IV ONE ×2 (09:59→12:37)
[2020-10-03] MEDS ORDERED: SEVOFLURANE (ULTANE) 15 ML INHAL SOLN ONE ×20 (09:59→13:56)
[2020-10-03] MEDS ORDERED: ceFAZolin 2 GM IV Premixed 50 ML ONE (11:43)
[2020-10-03] MEDS ORDERED: NEOSTIGMINE 3 MG/3 ML VIAL ONE (14:01)
[2020-10-03] MEDS ORDERED: GLYCOPYRROLATE 0.2 MG/ML (ROBINUL) 2 ML VIAL ONE (14:01)
--- NOTE | 2020-10-03 14:12 | Progress Note-Post Operative ---
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
[2020-10-03] MEDS ORDERED: SUGAMMADEX 500 MG/5 ML VIAL (BRIDION) IV ONE (14:22)
--- NOTE | 2020-10-03 14:42 | Anesthesia-General Post-Op ---
General Patient Condition Mental Status/LOC: Same as Preop Cardiovascular: Satisfactory Nausea/Vomiting: Absent Respiratory: Satisfactory Pain: Controlled Complications: Absent Post Op Complications Complications None Follow Up Care/Instructions Patient Instructions None needed. Anesthesia/Patient Condition Patient Condition Patient is doing well, no complaints, stable vital signs, no apparent adverse anesthesia problems. No complications reported per nursing. LILO ARECHIGA CRNA Oct 03, 2020 14:42
[2020-10-03] MEDS ORDERED: HYDROmorphone 2 MG/ML VIAL (DILAUDID) IV ONE (14:45)
[2020-10-03] MEDS ORDERED: MEPERIDINE (DEMEROL) INJ 50 MG/ML IVP ONE (14:45)
[2020-10-03] MEDS ORDERED: ONDANSETRON 4 MG/2 ML (SDV) Z0FRAN IVP PRN (14:45)
[2020-10-03] MEDS ORDERED: fentaNYL INJ 100 MCG/2 ML AMP IVP ONE (14:45)
[2020-10-03] MEDS ORDERED: PROMETHAZINE INJ 25 MG/ML (PHENERGAN) AMP IVP ONE (14:45)
[2020-10-03] MEDS ORDERED: KETOROLAC 30 MG/ML VIAL ONE (14:47)
[2020-10-03] MEDS: KETOROLAC 30 MG/ML VIAL IVP SCH ×2 (14:56→20:22)
[2020-10-03] MEDS: LACTATED RINGERS 1,000 ML IV SCH ×2 (16:48→19:14)
[2020-10-03] MEDS: ACETAMINOPHEN 500 MG TAB (TYLENOL) PO SCH ×3 (16:48→23:16)
[2020-10-03] MEDS: metroNIDAZOLE 500MG/100ML IVPB 100 ML IV SCH ×2 (16:52→23:16)
[2020-10-03] MEDS: CLINDAMYCIN 600 MG/50 ML IVPB 50 ML IV SCH (17:47)
[2020-10-03] MEDS ORDERED: HYDROmorphone 2 MG/ML VIAL (DILAUDID) ONE (19:02)
[2020-10-03] MEDS ORDERED: HYDROmorphone 2 MG/ML VIAL (DILAUDID) IV PRN (19:15)
[2020-10-03] MEDS ORDERED: CLINDAMYCIN 600 MG/50 ML IVPB 50 ML IV SCH (22:00)
[2020-10-04] VITALS (12 sets, daily range): BP systolic 95–145; BP diastolic 50–74
[2020-10-04] MEDS: CLINDAMYCIN 600 MG/50 ML IVPB 50 ML IV SCH ×2 (00:51→09:08)
--- NOTE | 2020-10-04 02:48 | OPERATIVE REPORT ---
DATE OF SERVICE: 10/03/2020 PREOPERATIVE DIAGNOSES: 1. Mucous fistula. 2. Parastomal hernia x2. POSTOPERATIVE DIAGNOSES: 1. Mucous fistula. 2. Parastomal hernia x2. PROCEDURES: 1. Laparoscopic colectomy with robotic assistance. 2. Parastomal hernia repair with mesh placement x2. SURGEON: Jeanette Montana DO STRADDLE BUGGY OPERATOR: Chuck Day DO. ANESTHESIA: General endotracheal tube. SPECIMEN: Mucous fistula, remaining portion of colon, which turned out to the sigmoid descending colon and all of transverse colon and possibly some of hepatic flexure. BLOOD LOSS: Approximately 150 mL. FLUIDS: Per anesthesia. POSTOPERATIVE CONDITION: Stable. INDICATION FOR PROCEDURE: The patient is a 69-year-old female who has been having some anemia, also some bleeding from around her ileostomy. She has abdominal pain secondary to parastomal hernias. She has one parastomal hernia at the mucous fistula, which is the remnant of her colon and she has one at the ileostomy. FINDINGS: The patient had a long remnant of mucous fistula, and she had a parastomal hernia around this as well as a parastomal hernia around the ileostomy. PROCEDURE NOTE: After informed consent was obtained, the patient was brought to the operating room, placed on the operating table in supine position. She was sterilely prepped and draped in normal fashion. I started by going in the left upper quadrant. Infiltrated with local, I made an incision with a #11 blade, carried down through the skin into subcutaneous tissue, then deepened down to subcutaneous tissue with Bovie electrocautery down to fascia. Fascia was incised with Bovie electrocautery, bluntly spread the muscle apart, then went to the posterior fascia and into the stomach, placed a 11 mm trocar port under direct visualization. Created pneumoperitoneum and then elected to place two more ports along the left paracolic gutter with local lidocaine and 11 blade for stab incision and then placed 8 mm robotic ports and then placed another 5 mm VersaStep port on the right upper quadrant using local lidocaine and 11 blade for stab incision and VersaStep system, all done under direct visualization. The robot was docked and noted adhesions. We got in and these were carefully taken down with blunt dissection as well as with the vessel sealer from the robot. Once able to get all these adhesions down, noted adhesions near the ileostomy as well as noted a pretty large parastomal hernia around the mucous fistula. I started coming across the omentum, taking this off just below the short gastrics and the stomach using the vessel sealer move this out of the way and then coming across the mesentery working across up to about the splenic flexure and then did a little bit of the distal portion again with vessel sealer, had to switch the site of the camera, it had been in the middle port. We moved it to the lower portion so that it could start coming across the splenic flexure, coming from down below and then coming across going through the splenocolic ligament with the vessel sealer as well as some blunt dissection carefully pulling this into the midline and then coming across the mesentery with the vessel sealer continued until this was freed all the way up to the parastomal hernia and then started coming down the left pericolic gutter, had a lot of trouble getting the intestine to get out of the pelvis, had a hard time holding onto the colon as well. We were hugging the colon to stay close this to stay away from any trouble with the vessel sealer coming along and down into the pelvis, had almost gotten all of this out, but again because of the adhesions, the patient had been in Trendelenburg, rotated to the right, rotated to the left, reverse Trendelenburg, trying to get the intestine to move out of the way. At this point, had been in there about 2-1/2 to 3 hours and elected to make an elliptical incision to remove the mucous fistula. The surrounding skin and some fat down to the fascia removed this and then pushed this into the abdomen, placed a wound protector as well as then a Gelfoam port and then able to go down and carefully finger dissect and free up the rest of the distal colon. Getting all of this out and then pulled this out, passed off table and sent to pathology. At this point, then redocked the robot and took down the adhesions, took down the small intestine off of the wall of the abdomen, could see much better than 3D magnified view of the robot to be able to take this down, so we could see the ileostomy site and parastomal hernia here. It was very small, elected to place a 16 x 20 Phasix mesh into the abdomen with 0 Vicryl in the middle and then closed the parastomal hernia at the mucous fistula site with a #1 double stranded PDS suture running from the midline to the lateral to close this hernia. Then held up the mesh on with 0 Vicryl right through this fascial closure. Then I used the camera and then tacked this Phasix mesh up to the abdominal wall, covering this parastomal hernia site. It was square, the superior edges at the corners were first tacked and then down along the sides and then elected to cover the ileostomy site in a Sugarbaker type closure to protect this ileostomy, the parastomal hernia here, tacked around this and then used the 5 mm port to tack at the medial edges of this as well as the lower edges and then placed some tacks in the midline to close this, took pictures of all this, it looked good. Elected to place a 19-Serbian Nehemiah drain down in the pelvis, brought this out through the left lower quadrant port site and then sutured this in place with 2-0 nylon suture, then elected to irrigate all incisions and closed all incision with le. Area was cleaned and dried. The 19-Serbian Nehemiah drain was hooked up to bulb suction. The patient tolerated the procedure. Sponge, instrument and needle count correct at the end of the case. Dr. Day assisted in this case helping to make incisions, close incisions, identify anatomy and hold anatomy out of the way. Job ID: [id number] DocumentID: [id number] Dictated Date: 10/03/2020 23:48:40 Tip Finisher Date: 10/04/2020 02:48:04 Dictated By: JEANETTE MONTANA DO
[2020-10-04] MEDS: KETOROLAC 30 MG/ML VIAL IVP SCH ×3 (03:01→14:16)
[2020-10-04] MEDS: LACTATED RINGERS 1,000 ML IV SCH ×3 (05:33→22:21)
[2020-10-04] MEDS: ACETAMINOPHEN 500 MG TAB (TYLENOL) PO SCH ×3 (06:36→22:23)
[2020-10-04] MEDS: PANTOPRAZOLE 40 MG (PROTONIX) VIAL IVP SCH (09:02)
--- NOTE | 2020-10-04 11:25 | Progress Note - Surgery ---
Subjective Time Seen by a Provider: 09:40 Subjective/Events-last exam Pt seen and examined, appears tired and lethargic. States pain is controlled and is eating a little bit of diet. Review of Systems General: Fatigue Pulmonary: No Dyspnea, No Cough Cardiovascular: No: Chest Pain Gastrointestinal: Abdominal Pain; No: Nausea, Vomiting Objective Exam Vital Signs Date Time Temp Pulse Resp B/P (MAP) Pulse Ox O2 Delivery O2 Flow Rate FiO2 10/04/20 08:00 37.0 99 18 102/54 (70) 95 Room Air 10/04/20 08:00 Room Air 10/04/20 04:10 36.4 101 18 145/69 (94) 98 Room Air 10/04/20 00:00 36.1 97 18 116/74 (88) 96 Room Air 10/03/20 21:00 Room Air 10/03/20 20:00 36.9 95 24 122/82 (95) 97 Room Air 10/03/20 16:50 36.0 75 16 117/79 (92) 100 Room Air 10/03/20 15:50 Room Air 10/03/20 15:45 Room Air 10/03/20 15:40 36.8 20 110/68 (82) 96 Room Air 10/03/20 15:30 18 109/67 (81) 98 OxyMask 2 10/03/20 15:20 20 105/60 (75) 99 OxyMask 2 10/03/20 15:15 OxyMask 2 10/03/20 15:10 15 108/58 (75) 100 OxyMask 2 10/03/20 15:00 15 107/66 (80) 100 OxyMask 4 10/03/20 15:00 OxyMask 4 10/03/20 14:50 18 105/71 (82) 100 OxyMask 6 10/03/20 14:45 OxyMask 8 10/03/20 14:40 17 111/75 (87) 100 OxyMask 8 10/03/20 14:27 36.8 16 113/67 (82) 100 OxyMask 10 10/03/20 14:27 OxyMask 10 I & O 10/04/20 07:00 Intake Total 5680 ml Output Total 1760 ml Balance 3920 ml Capillary Refill : General Appearance: No Apparent Distress Respiratory: Lungs Clear, Normal Breath Sounds, No Accessory Muscle Use Cardiovascular: Regular Rate, Rhythm, No Murmur Gastrointestinal: soft, tenderness (mostly at incisions), other (incisions c/d/i, ileostomy functioning) Results Lab Microbiology 10/03/20 MRSA Screen - Final, Complete MRSA not isolated Assessment/Plan Assessment/Plan Assessment/Plan S/P Laparoscopic Colectomy and Parastomal hernia repair Pt encouraged to ambulate and use IS. Increase diet as tolerated, will check labs today; pt was already anemic. JEANETTE MAN DO Oct 04, 2020 11:25
[2020-10-04 12:10] LABS: BASOPHILS % (AUTO) 0 % (0-10); EOSINOPHILS # (AUTO) 0.1 10^3/uL (0.0-0.3); EOSINOPHILS % (AUTO) 1 % (0-10); LYMPHOCYTES # (AUTO) 0.4 10^3/uL (1.0-4.0); LYMPHOCYTES % (AUTO) 5 % (12-44); MEAN CORPUSCULAR HEMOGLOBIN 28 pg (25-34); MEAN CORPUSCULAR HGB CONC 31 g/dL (32-36); MEAN CORPUSCULAR VOLUME 90 fL (80-99); MEAN PLATELET VOLUME 10.1 fL (9.0-12.2); MONOCYTES # (AUTO) 0.2 10^3/uL (0.0-1.0); MONOCYTES % (AUTO) 2 % (0-12); NEUTROPHILS # (AUTO) 7.3 10^3/uL (1.8-7.8); NEUTROPHILS % (AUTO) 91 % (42-75); PLATELET COUNT 141 10^3/uL (130-400)
[2020-10-04 12:13] LABS: HEMATOCRIT 17 % (35-52); HEMOGLOBIN 5.3 g/dL (11.5-16.0)
[2020-10-04] MEDS ORDERED: NS IV 500 ML 500 ML IV SCH (12:15)
[2020-10-04 12:16] LABS: ALBUMIN 2.8 GM/DL (3.2-4.5)
[2020-10-04 12:18] LABS: CALCIUM 7.9 MG/DL (8.5-10.1)
[2020-10-04 12:19] LABS: TOTAL PROTEIN 4.7 GM/DL (6.4-8.2)
[2020-10-04 12:21] LABS: BILIRUBIN,TOTAL 0.9 MG/DL (0.1-1.0)
[2020-10-04 12:23] LABS: CREATININE SERUM 1.25 MG/DL (0.60-1.30)
[2020-10-04 12:47] LABS: BAND NEUTROPHILS 23 %; BASOPHILS % (MANUAL) 0 %; EOSINOPHILS % (MANUAL) 1 %; LYMPHOCYTES % (MANUAL) 3 %; MONOCYTES % (MANUAL) 1 %; NEUTROPHILS % (MANUAL) 72 %
[2020-10-04 12:48] LABS: ANISOCYTOSIS SLIGHT; HYPOCHROMASIA SLIGHT; MICROCYTOSIS SLIGHT
[2020-10-04] MEDS ORDERED: NS IV 500 ML 500 ML ONE ×2 (13:33→17:01)
[2020-10-04] MEDS: ENOXAPARIN 40 MG/0.4 ML (LOVENOX) SYR SC SCH (14:43)
[2020-10-04 21:58] LABS: HEMOGLOBIN 7.8 g/dL (11.5-16.0)
[2020-10-04] MEDS: HYDROmorphone 2 MG/ML VIAL (DILAUDID) IV PRN (22:40)
[2020-10-05 00:03] VITALS: BP 114/61
[2020-10-05 03:48] VITALS: BP 130/63
[2020-10-05] MEDS: LACTATED RINGERS 1,000 ML IV SCH ×2 (05:23→14:42)
[2020-10-05] MEDS: ACETAMINOPHEN 500 MG TAB (TYLENOL) PO SCH ×3 (06:20→22:23)
[2020-10-05 08:00] VITALS: BP 125/60
[2020-10-05] MEDS: PANTOPRAZOLE 40 MG (PROTONIX) VIAL IVP SCH (08:39)
[2020-10-05] MEDS: ONDANSETRON 4 MG/2 ML (SDV) Z0FRAN IVP PRN ×2 (09:22→17:32)
--- NOTE | 2020-10-05 11:05 | Progress Note ---
Subjective Date Seen by a Provider: Oct 05, 2020 Time Seen by a Provider: 10:00 Subjective/Events-last exam doing well. pain controlled. up in chair. functional ileostomy and tolerating clears. Objective Exam Vital Signs Date Time Temp Pulse Resp B/P (MAP) Pulse Ox O2 Delivery O2 Flow Rate FiO2 10/05/20 09:00 Room Air 10/05/20 08:00 37.1 107 16 125/60 (81) 95 Room Air 10/05/20 03:48 36.4 107 18 130/63 (85) 99 Room Air 10/05/20 00:03 36.8 104 18 114/61 (78) 92 Room Air 10/04/20 21:00 Room Air 10/04/20 20:00 36.3 99 16 129/61 (83) 98 Room Air 10/04/20 19:52 36.3 99 16 129/61 98 Room Air 10/04/20 17:22 36.6 93 16 112/58 93 Room Air 10/04/20 17:04 36.5 92 113/57 97 10/04/20 16:41 36.6 97 18 114/60 97 Room Air 10/04/20 16:32 36.2 102 22 97/60 (72) 96 Room Air 10/04/20 14:00 36.5 16 95/50 96 Room Air 10/04/20 13:45 36.3 98 16 115/56 95 Room Air 10/04/20 12:00 36.8 98 20 99/56 (70) 99 Room Air I & O 10/05/20 07:00 Intake Total 1610 ml Output Total 1780 ml Balance -170 ml Capillary Refill : General Appearance: No Apparent Distress HEENT: PERRL/EOMI Neck: Full Range of Motion Respiratory: Chest Non Tender, Lungs Clear Cardiovascular: Regular Rate, Rhythm Gastrointestinal: normal bowel sounds, tenderness Extremity: Normal Capillary Refill Neurologic/Psychiatric: Alert, Oriented x3 Skin: Normal Color Lymphatic: No Adenopathy Results Lab Laboratory Tests 10/04/20 11:55: White Blood Count 8.0, Red Blood Count 1.92L, Hemoglobin 5.3#*L, Hematocrit 17*L , Mean Corpuscular Volume 90, Mean Corpuscular Hemoglobin 28, Mean Corpuscular Hemoglobin Concent 31L, Red Cell Distribution Width 15.9H, Platelet Count 141, Mean Platelet Volume 10.1, Immature Granulocyte % (Auto) 0, Neutrophils (%) (Auto) 91H, Lymphocytes (%) (Auto) 5L, Monocytes (%) (Auto) 2, Eosinophils (%) (Auto) 1, Basophils (%) (Auto) 0, Neutrophils # (Auto) 7.3, Lymphocytes # (Auto) 0.4L, Monocytes # (Auto) 0.2, Eosinophils # (Auto) 0.1, Basophils # (Auto) 0.0, Immature Granulocyte # (Auto) 0.0, Neutrophils % (Manual) 72, Lymphocytes % (Manual) 3, Monocytes % (Manual) 1, Eosinophils % (Manual) 1, Basophils % (Manual) 0, Band Neutrophils 23, Hypochromasia SLIGHT, Anisocytosis SLIGHT, Microcytosis SLIGHT, Sodium Level 136, Potassium Level 4.0, Chloride Level 106, Carbon Dioxide Level 20L, Anion Gap 10, Blood Urea Nitrogen 21H, Creatinine 1.25, Estimat Glomerular Filtration Rate 42, BUN/Creatinine Ratio 17, Glucose Level 91, Calcium Level 7.9L, Corrected Calcium 8.9, Total Bilirubin 0.9, Aspartate Amino Transf (AST/SGOT) 18, Alanine Aminotransferase (ALT/SGPT) 9, Alkaline Phosphatase 43, Total Protein 4.7L, Albumin 2.8L 10/04/20 21:53: Hemoglobin 7.8#L, Hematocrit 24L Microbiology 10/03/20 MRSA Screen - Final, Complete MRSA not isolated Assessment/Plan Assessment/Plan Assess & Plan/Chief Complaint s/p completion colectomy and parastomal hernia repair with mesh. d/c noel. ambulate. advance diet as tolerated. ANAYA SANCHEZ MD Oct 05, 2020 11:05
[2020-10-05] MEDS: HYDROcodone/APAP 7.5 MG/325 MG (LORTAB, LORCET PLUS) TABLET PO PRN ×2 (11:59→22:03)
[2020-10-05 12:00] VITALS: BP 124/66
[2020-10-05] MEDS: ENOXAPARIN 40 MG/0.4 ML (LOVENOX) SYR SC SCH (14:30)
[2020-10-05 16:00] VITALS: BP 128/71
[2020-10-05 19:35] VITALS: BP 121/72
[2020-10-06] VITALS: BP 118/73
[2020-10-06 04:00] VITALS: BP 137/78
[2020-10-06] MEDS: ACETAMINOPHEN 500 MG TAB (TYLENOL) PO SCH ×3 (06:01→21:43)
[2020-10-06] MEDS: HYDROcodone/APAP 7.5 MG/325 MG (LORTAB, LORCET PLUS) TABLET PO PRN ×3 (06:32→19:35)
[2020-10-06 07:37] VITALS: BP 120/68
[2020-10-06] MEDS: PANTOPRAZOLE 40 MG (PROTONIX) VIAL IVP SCH (09:34)
[2020-10-06 11:40] VITALS: BP 120/78
--- NOTE | 2020-10-06 11:42 | Progress Note ---
Subjective Date Seen by a Provider: Oct 06, 2020 Time Seen by a Provider: 11:00 Subjective/Events-last exam doing well. tolerating diet. functional ileostomy. pain controlled. having difficulty with ambulation. Objective Exam Vital Signs Date Time Temp Pulse Resp B/P (MAP) Pulse Ox O2 Delivery O2 Flow Rate FiO2 10/06/20 09:00 Room Air 10/06/20 07:37 36.3 117 20 120/68 (85) 97 Room Air 10/06/20 04:00 36.9 109 21 137/78 (97) 93 Room Air 10/06/20 00:00 36.4 106 18 118/73 (88) 94 Room Air 10/05/20 21:00 Room Air 10/05/20 19:35 36.7 108 20 121/72 (88) 97 Room Air 10/05/20 16:00 36.6 100 18 128/71 (90) 98 Room Air 10/05/20 12:00 36.4 94 18 124/66 (85) 90 Room Air I & O 10/06/20 07:00 Intake Total 1260 ml Output Total 675 ml Balance 585 ml Capillary Refill : General Appearance: No Apparent Distress HEENT: PERRL/EOMI Neck: Full Range of Motion Respiratory: Chest Non Tender, Lungs Clear Cardiovascular: Regular Rate, Rhythm Gastrointestinal: normal bowel sounds, soft, tenderness Extremity: Normal Capillary Refill Neurologic/Psychiatric: Alert, Oriented x3 Skin: Normal Color Lymphatic: No Adenopathy Results Lab Microbiology 10/03/20 MRSA Screen - Final, Complete MRSA not isolated Assessment/Plan Assessment/Plan Assess & Plan/Chief Complaint s/p completion colectomy and parastomal hernia repair with mesh. ambulate. consult PT/OT advance diet as tolerated. consult SS for ARU. ANAYA SANCHEZ MD Oct 06, 2020 11:42
--- NOTE | 2020-10-06 12:23 | Physical Therapy Evaluation ---
PT Evaluation-General Medical Diagnosis Admission Date Oct 03, 2020 at 06:38 Medical Diagnosis: s/p completion colectomy and parastomal hernia repair with mesh Onset Date: Oct 04, 2020 Height/Weight Height (Feet): 5 Height (Inches): 8.00 Weight (Pounds): 239 Weight (Ounces): 5.0 Precautions Precautions/Isolations: Fall Prevention, Standard Precautions Weight Bear Status Weight Bearing/Tolerated Weight Bearing/Tolerated Referral Physician: Rubén Reason for Referral: Evaluation/Treatment Medical History Pertinent Medical History: CVA, HTN, Rheumatoid Arthritis Prior Prior Level of Function SCALE: Activities may be completed with or without assistive devices. 6-Cgmhbapjcm-orwurzj completes the activity by him/herself with no assistance from a helper. 5-Set-up or Clean-up Assistance-helper sets up or cleans up; patient completes activity. [place] assists only prior to or following the activity. 4-Supervision or Touching Assistance-helper provides verbal cues and/or touching/steadying and/or contact guard assistance as patient completes activity. Assistance may be provided throughout the activity or intermittently. 3-Partial/Moderate Assistance-helper does LESS THAN HALF the effort. [place] lifts, holds or supports trunk or limbs, but provides less than half the effort. 2-Substantial/Maximal Assistance-helper does MORE THAN HALF the effort. [place] lifts or holds trunk or limbs and provides more than half the effort. 9-Yyxmsivbz-vnzgls does ALL the effort. Patient does none of the effort to complete the activity. Or, the assistance of 2 or more helpers is required for the patient to complete the activity. If activity was not attempted, code reason: 7-Patient Refused. 9-Not Applicable-not attempted and the patient did not perform the activity before the current illness, exacerbation or injury. 10-Not Attempted due to Environmental Limitations-(lack of equipment, weather restraints, etc.). 88-Not Attempted due to Medical Conditions or Safety Concerns. KRISTI SADLER PT Oct 06, 2020 12:23
--- NOTE | 2020-10-06 12:37 | Physical Therapy Progress Note ---
Therapy Progress Note Pt supine in bed, c/o severe abdominal cramps at this time. Refusing any OOB activity. States she has been up and to the bathroom using a FWW with nursing, would like to initiate PT tomorrow due to increased pain levels. Will follow up tomorrow am to initiate PT care. 1 visit ([id number]) KRISTI SADLER PT Oct 06, 2020 12:37
[2020-10-06] MEDS: ENOXAPARIN 40 MG/0.4 ML (LOVENOX) SYR SC SCH (14:50)
[2020-10-06] MEDS: HYDROmorphone 2 MG/ML VIAL (DILAUDID) IV PRN (14:58)
[2020-10-06 15:25] VITALS: BP 131/81
[2020-10-06 19:34] VITALS: BP 126/87
[2020-10-07] MEDS: HYDROcodone/APAP 7.5 MG/325 MG (LORTAB, LORCET PLUS) TABLET PO PRN ×4 (00:30→21:17)
[2020-10-07 00:55] VITALS: BP 138/80
[2020-10-07 04:50] VITALS: BP 131/83
[2020-10-07] MEDS: ACETAMINOPHEN 500 MG TAB (TYLENOL) PO SCH ×3 (06:04→21:17)
[2020-10-07] MEDS: ONDANSETRON 4 MG/2 ML (SDV) Z0FRAN IVP PRN ×2 (07:48→17:54)
[2020-10-07] MEDS: PANTOPRAZOLE 40 MG (PROTONIX) VIAL IVP SCH (07:48)
[2020-10-07 08:00] VITALS: BP 138/82
--- NOTE | 2020-10-07 09:33 | Physical Therapy Progress Note ---
Therapy Progress Note Attempted to initiate PT evaluation this AM; however, pt refuses any OOB activity as she has been vomiting all morning. Pt states she will be ready for PT evaluation tomorrow morning. Will follow up tomorrow to initiate PT evaluation. 1 visit (700) KRISTI SADLER PT Oct 07, 2020 09:33
[2020-10-07 11:41] LABS: CHLORIDE 105 MMOL/L (98-107); SODIUM 139 MMOL/L (135-145)
[2020-10-07 11:42] LABS: CALCIUM 8.5 MG/DL (8.5-10.1); GLUCOSE 96 MG/DL (70-105)
[2020-10-07 11:44] LABS: CARBON DIOXIDE 19 MMOL/L (21-32)
[2020-10-07 11:46] LABS: GFR ESTIMATED > 60
[2020-10-07 11:47] LABS: BASOPHILS % (AUTO) 1 % (0-10); BUN/CREATININE RATIO 13; EOSINOPHILS # (AUTO) 0.1 10^3/uL (0.0-0.3); EOSINOPHILS % (AUTO) 2 % (0-10); HEMATOCRIT 28 % (35-52); HEMOGLOBIN 8.6 g/dL (11.5-16.0); LYMPHOCYTES # (AUTO) 0.2 10^3/uL (1.0-4.0); LYMPHOCYTES % (AUTO) 4 % (12-44); MEAN CORPUSCULAR HEMOGLOBIN 28 pg (25-34); MEAN CORPUSCULAR HGB CONC 31 g/dL (32-36); MEAN CORPUSCULAR VOLUME 90 fL (80-99); MEAN PLATELET VOLUME 10.6 fL (9.0-12.2); MONOCYTES # (AUTO) 0.4 10^3/uL (0.0-1.0); MONOCYTES % (AUTO) 8 % (0-12); NEUTROPHILS % (AUTO) 84 % (42-75); PLATELET COUNT 186 10^3/uL (130-400); WHITE BLOOD COUNT 4.7 10^3/uL (4.3-11.0)
[2020-10-07 11:59] VITALS: BP 139/83
[2020-10-07] MEDS: ENOXAPARIN 40 MG/0.4 ML (LOVENOX) SYR SC SCH (14:25)
[2020-10-07] MEDS: METOCLOPRAMIDE 5 MG (REGLAN) TAB PO PRN (15:34)
[2020-10-07 16:10] VITALS: BP 136/84
[2020-10-07 19:33] VITALS: BP 156/81
[2020-10-08 00:01] VITALS: BP 159/97
[2020-10-08] MEDS: METOCLOPRAMIDE 5 MG (REGLAN) TAB PO PRN (01:57)
[2020-10-08] MEDS: HYDROcodone/APAP 7.5 MG/325 MG (LORTAB, LORCET PLUS) TABLET PO PRN ×3 (02:28→21:04)
[2020-10-08] MEDS: ONDANSETRON 4 MG/2 ML (SDV) Z0FRAN IVP PRN (06:03)
[2020-10-08] MEDS: ACETAMINOPHEN 500 MG TAB (TYLENOL) PO SCH ×3 (06:03→23:03)
[2020-10-08 08:00] VITALS: BP 142/92
[2020-10-08] MEDS: PANTOPRAZOLE 40 MG (PROTONIX) VIAL IVP SCH (09:08)
--- NOTE | 2020-10-08 10:40 | Physical Therapy Evaluation ---
PT Evaluation-General Medical Diagnosis Admission Date Oct 03, 2020 at 06:38 Medical Diagnosis: s/p completion colectomy and parastomal hernia repair with mesh Onset Date: Oct 04, 2020 Therapy Diagnosis Therapy Diagnosis: debility/weakness Height/Weight Height (Feet): 5 Height (Inches): 8.00 Weight (Pounds): 239 Weight (Ounces): 5.0 Precautions Precautions/Isolations: Fall Prevention, Standard Precautions Weight Bear Status Weight Bearing/Tolerated Weight Bearing/Tolerated Referral Physician: Aleks Reason for Referral: Evaluation/Treatment Medical History Pertinent Medical History: CVA, HTN, Rheumatoid Arthritis Current History s/p completion colectomy and parastomal hernia repair with mesh Reviewed History: Yes Social History Home: Apartment Entry Into Home: Level Entry Prior Prior Level of Function SCALE: Activities may be completed with or without assistive devices. 9-Raugzzymjt-ropsmon completes the activity by him/herself with no assistance from a helper. 5-Set-up or Clean-up Assistance-helper sets up or cleans up; patient completes activity. [place] assists only prior to or following the activity. 4-Supervision or Touching Assistance-helper provides verbal cues and/or touching/steadying and/or contact guard assistance as patient completes activity. Assistance may be provided throughout the activity or intermittently. 3-Partial/Moderate Assistance-helper does LESS THAN HALF the effort. [place] lifts, holds or supports trunk or limbs, but provides less than half the effort. 2-Substantial/Maximal Assistance-helper does MORE THAN HALF the effort. [place] lifts or holds trunk or limbs and provides more than half the effort. 8-Xbtzbxrmw-pqbssh does ALL the effort. Patient does none of the effort to complete the activity. Or, the assistance of 2 or more helpers is required for the patient to complete the activity. If activity was not attempted, code reason: 7-Patient Refused. 9-Not Applicable-not attempted and the patient did not perform the activity before the current illness, exacerbation or injury. 10-Not Attempted due to Environmental Limitations-(lack of equipment, weather restraints, etc.). 88-Not Attempted due to Medical Conditions or Safety Concerns. Bed Mobility: 5 Transfers (B,C,W/C): 5 Gait: 5 Stairs: 9 Indoor Mobility (Ambulation): Independent Stairs: Not Applicalbe Prior Devices Use: Walker PT Evaluation-Current Subjective Patient agrees to PT. Objective Patient Orientation: Normal For Age Attachments: Colostomy/Ileostomy ROM/Strength ROM Lower Extremities bilateral LE WFL Strength Lower Extremities 3+/5 grossly bilateral LE Integumentary/Posture Integumentary refer to nursing notes Bowel Incontinence: No Bladder Incontinence: No Posture cervical flexion with rotation Neuromuscular (Tone, Coordination, Reflexes) grossly intact Sensory Vision: Wears Glasses Hearing: Functional Transfers Roll Left to Right (QC): 5 Lying to Sitting/Side of Bed(Q: 5 Sit to Stand (QC): 4 (SBA) Chair/Itk-zo-Lxcpf Xfer(QC): 4 (SBA) Toilet Transfer (QC): 4 (SBA) Gait Does the Patient Walk?: Yes Mode of Locomotion: Walk Anticipated Mode of Locomotion: Walk Walk 10 feet (QC): 4 (SBA) Walk 50 ft with 2 Turns(QC): 4 (SBA) Walk 150 ft (QC): 4 (SBA) Distance: 400' Gait Assistive Device: FWW Comments/Gait Description very slow, functional gait sequence Balance Sitting Static: Normal Sitting Dynamic: Normal Standing Static: Normal Standing Dynamic: Normal Assessment/Needs 69 y.o. female, will be seen short term by skilled PT to address functional strength and mobility to improve current LOF. Patient instructed to ambulate with nursing PRN in [facility]. Nursing notified. Rehab Potential: Fair PT Calliope Player Goals Calliope Player Goals PT Long-Term Goals Time Frame: Oct 20, 2020 Roll Left & Right (QC): 5 Sit to Lying (QC): 5 Lying-Sitting on Side/Bed(QC): 5 Sit to Stand (QC): 5 Chair/Isw-fs-Jqijw Xfer(QC): 5 Toilet Transfer (QC): 5 Does the Patient Walk: Yes Walk 10 feet (QC): 5 Walk 50ft with 2 Turns (QC): 5 Walk 150 ft (QC): 5 PT Plan Problem List Problem List: Activity Tolerance, Functional Strength, Gait, Transfer, Bed Mobility Treatment/Plan Treatment Plan: Continue Plan of Care Treatment Plan: Bed Mobility, Education, Functional Activity Nat, Functional Strength, Gait, Safety, Therapeutic Exercise, Transfers Treatment Duration: Oct 20, 2020 Frequency: 6 times per week Estimated Hrs Per Day: .25 hour per day Patient and/or Family Agrees t: Yes Time/GCodes Time In: 834 Time Out: 850 Total Billed Treatment Time: 16 Total Billed Treatment 1 visit EVModC 16 min ALEJANDRO WILKERSON PT Oct 08, 2020 10:40
[2020-10-08] MEDS: ENOXAPARIN 40 MG/0.4 ML (LOVENOX) SYR SC SCH (14:23)
--- NOTE | 2020-10-08 15:44 | Occupational Therapy Eval ---
OT Evaluation-General/PLF Medical Diagnosis Admission Date Oct 03, 2020 at 06:38 Medical Diagnosis: s/p completion colectomy and parastomal hernia repair with mesh Onset Date: Oct 03, 2020 Therapy Diagnosis Therapy Diagnosis: Decreased ADL skills Height/Weight Height (Feet): 5 Height (Inches): 8.00 Weight (Pounds): 239 Weight (Ounces): 5.0 Precautions Precautions/Isolations: Fall Prevention, Standard Precautions Weight Bear Status Weight Bearing Restriction: Weight Bearing/Tolerated Referral Physician: Pan Referral Reason: Activity Tolerance, Self Care, Evaluation/Treatment, Strengthening/ROM Medical History Pertinent Medical History: CVA, HTN, Rheumatoid Arthritis Additional Medical History Pt. had colectomy and parastomal hernia repair with mesh. Current History Pt. lives in [facility] in [facility]. She has had multiple abdominal surgeries. Reviewed History: Yes Social History Home: Apartment Current Living Status: Alone Entry Into Home: Level Entry ADL-Prior Level of Function SCALE: Activities may be completed with or without assistive devices. 5-Xbfulrrkwy-irxykvj completes the activity by him/herself with no assistance from a helper. 5-Set-up or Clean-up Assistance-helper sets up or cleans up; patient completes activity. [place] assists only prior to or following the activity. 4-Supervision or Touching Assistance-helper provides verbal cues and/or touching/steadying and/or contact guard assistance as patient completes activity. Assistance may be provided throughout the activity or intermittently. 3-Partial/Moderate Assistance-helper does LESS THAN HALF the effort. [place] lifts, holds or supports trunk or limbs, but provides less than half the effort. 2-Substantial/Maximal Assistance-helper does MORE THAN HALF the effort. [place] lifts or holds trunk or limbs and provides more than half the effort. 3-Qdstotroj-ccifis does ALL the effort. Patient does none of the effort to complete the activity. Or, the assistance of 2 or more helpers is required for the patient to complete the activity. If activity was not attempted, code reason: 7-Patient Refused. 9-Not Applicable-not attempted and the patient did not perform the activity before the current illness, exacerbation or injury. 10-Not Attempted due to Environmental Limitations-(lack of equipment, weather restraints, etc.). 88-Not Attempted due to Medical Conditions or Safety Concerns. ADL PLOF Comments Pt. states that she is typically independent with daily skills. She uses a cane at home, but does have a walker as well. She has a lift chair, and pull cords throughout her apartment. Her toilet has a riser. She has RA, that causes her to have difficulty bending her knees. She has a household personal assistant 4 hours per week. She does her own laundry, and cooks simple meals. Self Care: Independent Functional Cognition: Independent DME/Equipment: Bath Chair, Grab Bars, Shower, Tall Toilet DME/Equipment Comments Walker, cane, lift chair OT Current Status Current Glasses/Contacts: Yes Upper Extremity ROM WFL ADL-Treatment Eating (QC): 6 On/Off Footwear (QC): 2 Other Treatments Pt. attempts to stand from regular recliner. Her knees are unable to bend under her very well due to her RA. Pt. requires max x 2 for sit-stand from recliner. Pt. has lift recliner at home. She states that she was able to stand easier earlier from elevated bed. Pt. able to ambulate with walker to bed with min assist. She was able to transfer sit-supine with CGA. All needs met. Education OT Patient Education: Correct positioning, Modified ADL techniques, Progress toward Goal/Update tx plan, Purpose of tx/functional activities, Reviewed precautions, Rehab process, Transfer techniques Teaching Recipient: Patient Teaching Methods: Demonstration, Discussion Response to Teaching: Verbalize Understanding, Return Demonstration OT Short Term Goals Short Term Goals Time Frame: Oct 15, 2020 Eatin Oral hygiene: 6 Toileting hygiene: 3 Shower/bathe self: 3 Upper body dressin Lower body dressin Putting on/taking off footwear: 3 OT [facility] Goals Printer Machine Goals Time Frame: Oct 29, 2020 Eating (QC): 6 Oral Hygiene (QC): 6 Toileting Hygiene (QC): 6 Shower/Bathe Self (QC): 4 Upper Body Dressing (QC): 5 Lower Body Dressing (QC): 5 On/Off Footwear (QC): 5 Additional Goals: 1-Demonstrate ADL Tasks, 2-Verbalize Understanding, 3- ImproveStrength/Nat 1=Demonstrate adherence to instructed precautions during ADL tasks. 2=Patient will verbalize/demonstrate understanding of assistive devices/modifications for ADL. 3=Patient will improve strength/tolerance for activity to enable patient to perform ADL's. OT Education/Plan Problem List/Assessment Assessment: Decreased Activ Tolerance, Dependent Transfers, Impaired Bed Mobility, Impaired Funct Balance, Impaired I ADL's, Impaired Self-Care Skills Discharge Recommendations Plan/Recommendations: Continue POC Therapy Discharge Recommendati: Post Acute OT Equpiment Recommendations-D/C: Hip Kit Treatment Plan/Plan of Care Treatment,Training & Education: Yes Patient would benefit from OT for education, treatment and training to promote independence in ADL's, mobility, safety and/or upper extremity function for ADL's. Plan of Care: ADL Retraining, Functional Mobility, UE Funct Exercise/Act Treatment Duration: Oct 29, 2020 Frequency: 5 times per week Estimated Hrs Per Day: .5 hour per day Agreement: Yes Rehab Potential: Good Time/GCodes Start Time: 15:05 Stop Time: 15:28 Total Time Billed (hr/min): 23 Billed Treatment Time 1, EVH x 10minutes, ADL x 13minutes ADRIEN STREETER OT Oct 08, 2020 15:44
[2020-10-08 16:05] VITALS: BP 132/90
--- NOTE | 2020-10-08 17:05 | Progress Note - Surgery ---
Subjective Time Seen by a Provider: 16:41 Subjective/Events-last exam Pt seen and examined, states she has had a "rough" time; but is doing better since PT has been seeing her. She is starting to eat some more and is feeling better; but states she failed the physical therapy "tests". Review of Systems General: Fatigue Pulmonary: No Dyspnea, No Cough Cardiovascular: No: Chest Pain, Palpitations Gastrointestinal: Abdominal Pain; No: Nausea, Vomiting Objective Exam Vital Signs Date Time Temp Pulse Resp B/P (MAP) Pulse Ox O2 Delivery O2 Flow Rate FiO2 10/08/20 16:05 35.9 112 20 132/90 (104) 94 Room Air 10/08/20 09:00 Room Air 10/08/20 08:00 35.8 116 20 142/92 (109) 100 Room Air 10/08/20 00:01 36.2 113 18 159/97 (117) 98 Room Air 10/07/20 21:15 Room Air 10/07/20 19:33 36.2 115 18 156/81 (106) 97 Room Air I & O 10/08/20 07:00 Intake Total 790 ml Output Total 495 ml Balance 295 ml Capillary Refill : General Appearance: No Apparent Distress HEENT: PERRL/EOMI Respiratory: Lungs Clear, Normal Breath Sounds Cardiovascular: Regular Rate, Rhythm, No Murmur Gastrointestinal: normal bowel sounds, soft, tenderness, other (incisions c /d/i, DEEPAK with serous output, ostomy pink and fxning) Extremity: Normal Capillary Refill Neurologic/Psychiatric: Alert, Oriented x3 Results Lab Laboratory Tests 10/08/20 13:50: Lab Scanned Report Transfusion Reaction Form Microbiology 10/03/20 MRSA Screen - Final, Complete MRSA not isolated Assessment/Plan Assessment/Plan Assessment/Plan s/p completion colectomy and parastomal hernia repair with mesh. -- encourage ambulation and IS use, advance diet as tolerated. Pt is getting evaluated for ARU. JEANETTE MAN DO Oct 08, 2020 17:05
[2020-10-09] MEDS: ONDANSETRON 4 MG/2 ML (SDV) Z0FRAN IVP PRN (00:08)
[2020-10-09 00:09] VITALS: BP 145/79
[2020-10-09] MEDS: HYDROcodone/APAP 7.5 MG/325 MG (LORTAB, LORCET PLUS) TABLET PO PRN ×3 (02:43→21:05)
[2020-10-09] MEDS: METOCLOPRAMIDE 5 MG (REGLAN) TAB PO PRN (02:43)
[2020-10-09] MEDS: ACETAMINOPHEN 500 MG TAB (TYLENOL) PO SCH ×3 (06:23→21:40)
[2020-10-09 08:00] VITALS: BP 139/83
[2020-10-09] MEDS: PANTOPRAZOLE 40 MG (PROTONIX) VIAL IVP SCH (09:03)
--- NOTE | 2020-10-09 09:33 | Progress Note - Surgery ---
Subjective Time Seen by a Provider: 08:28 Subjective/Events-last exam Pt seen and examined, stated she had a "rough night" because of abdominal cramps. She stated she finally got some Hydrocodone and something to sleep and that helped. Feels a little better this am, still has some minor cramps. Denied N/V and still has good output in ileostomy. Review of Systems General: Fatigue, Malaise Pulmonary: No Dyspnea, No Cough Cardiovascular: No: Chest Pain Gastrointestinal: Abdominal Pain; No: Nausea, Vomiting Objective Exam Vital Signs Date Time Temp Pulse Resp B/P (MAP) Pulse Ox O2 Delivery O2 Flow Rate FiO2 10/09/20 00:09 36.4 112 20 145/79 (101) 95 Room Air 10/08/20 20:50 Room Air 10/08/20 16:05 35.9 112 20 132/90 (104) 94 Room Air I & O 10/09/20 07:00 Intake Total 2020 ml Output Total 1795 ml Balance 225 ml Capillary Refill : General Appearance: No Apparent Distress HEENT: PERRL/EOMI Respiratory: Lungs Clear, Normal Breath Sounds Cardiovascular: Regular Rate, Rhythm, No Murmur Gastrointestinal: normal bowel sounds, soft, tenderness (diffusely), other (incisions c/d/i, DEEPAK with serous output, ostomy pink and fxning) Neurologic/Psychiatric: Alert, Oriented x3 Results Lab Laboratory Tests 10/08/20 13:50: Lab Scanned Report Transfusion Reaction Form Microbiology 10/03/20 MRSA Screen - Final, Complete MRSA not isolated Assessment/Plan Assessment/Plan Assessment/Plan s/p completion colectomy and parastomal hernia repair with mesh. -- encourage ambulation and IS use, advance diet as tolerated. Abdominal cramping - will order Abd series and UA Pt is getting evaluated for ARU. JEANETTE MAN DO Oct 09, 2020 09:33
--- NOTE | 2020-10-09 11:09 | Occupational Ther Daily Note ---
OT Current Status-Daily Note Subjective Pt alert, lying in bed. Pt agrees to therapy. C/o fatigue and cramping. Mental Status/Objective Patient Orientation: Person, Place, Time, Situation Attachments: Colostomy/Ileostomy, Drains ADL-Treatment Pt able to set up own meal and use regular utensils to eat. Pt having questions about hip kit and where to purchase. Directed pt to DME store or online. Handout given to pt for resource on items in hip kit. With increased time, pt able to go from supine to EOB by self using bed rails and HOB raised. After set up, pt able to don/doff socks with AE. Min A to use tracer bullet section supervisor to thread underwear over feet, SBA while pt stabilized self with FWW to hike pants over hips. Pt left in care of PT. All needs met. Therapy Code Descriptions/Definitions Functional [place] Measure: 0=Not Assessed/NA 4=Minimal Assistance 1=Total Assistance 5=Supervision or Setup 2=Maximal Assistance 6=Modified [place] 3=Moderate Assistance 7=Complete IndependenceSCALE: Activities may be completed with or without assistive devices. 7-Vbillffozp-sntnanx completes the activity by him/herself with no assistance from a helper. 5-Set-up or Clean-up Assistance-helper sets up or cleans up; patient completes activity. [place] assists only prior to or following the activity. 4-Supervision or Touching Assistance-helper provides verbal cues and/or touching/steadying and/or contact guard assistance as patient completes activity. Assistance may be provided throughout the activity or intermittently. 3-Partial/Moderate Assistance-helper does LESS THAN HALF the effort. [place] lifts, holds or supports trunk or limbs, but provides less than half the effort. 2-Substantial/Maximal Assistance-helper does MORE THAN HALF the effort. [place] lifts or holds trunk or limbs and provides more than half the effort. 4-Ozrtupygv-siptmk does ALL the effort. Patient does none of the effort to complete the activity. Or, the assistance of 2 or more helpers is required for the patient to complete the activity. If activity was not attempted, code reason: 7-Patient Refused. 9-Not Applicable-not attempted and the patient did not perform the activity before the current illness, exacerbation or injury. 10-Not Attempted due to Environmental Limitations-(lack of equipment, weather restraints, etc.). 88-Not Attempted due to Medical Conditions or Safety Concerns. Eating (QC): 6 Lower Body Dressing (QC): 3 On/Off Footwear: 5 OT Short Term Goals Short Term Goals Time Frame: Oct 15, 2020 Eatin Oral hygiene: 6 Toileting hygiene: 3 Shower/bathe self: 3 Upper body dressin Lower body dressin Putting on/taking off footwear: 3 OT Longterm Goals Crocheter Hand Goals Time Frame: Oct 29, 2020 Eating (QC): 6 Oral Hygiene (QC): 6 Toileting Hygiene (QC): 6 Shower/Bathe Self (QC): 4 Upper Body Dressing (QC): 5 Lower Body Dressing (QC): 5 On/Off Footwear (QC): 5 Additional Goals: 1-Demonstrate ADL Tasks, 2-Verbalize Understanding, 3- ImproveStrength/Nat 1=Demonstrate adherence to instructed precautions during ADL tasks. 2=Patient will verbalize/demonstrate understanding of assistive devices/modifications for ADL. 3=Patient will improve strength/tolerance for activity to enable patient to perform ADL's. OT Education/Plan Problem List/Assessment Assessment: Decreased Activ Tolerance, Impaired Self-Care Skills Discharge Recommendations Plan/Recommendations: Continue POC Treatment Plan/Plan of Care Patient would benefit from OT for education, treatment and training to promote independence in ADL's, mobility, safety and/or upper extremity function for ADL's. Plan of Care: ADL Retraining, Functional Mobility, UE Funct Exercise/Act Treatment Duration: Oct 29, 2020 Frequency: 5 times per week Estimated Hrs Per Day: .5 hour per day Agreement: Yes Rehab Potential: Good Time/GCodes Start Time: 10:35 Stop Time: 11:00 Total Time Billed (hr/min): 25 Billed Treatment Time 1 visit-ADL 2 (25 min) FABIAN GALARZA Oct 09, 2020 11:09
--- NOTE | 2020-10-09 11:25 | Diagnostic Imaging Report ---
INDICATION: Acute abdomen series. INDICATION: Abdominal cramps. FINDINGS: The accompanying erect PA chest shows the heart size to be mildly enlarged but similar to the prior exam of 07/16/2020. The lungs are clear. There is no evidence for failure, pneumonia, or pleural effusion. Supine and erect views of the abdomen were obtained. The CT abdomen/pelvis exam performed on 09/08/2020 noted post surgical changes involving the colon including two right lower quadrant colostomies. In the interval since the prior study, it appears that the patient has undergone a surgical procedure. Is my understanding that the patient did undergo a colectomy. There are now surgical clips overlying the low pelvis on the right and in the left upper quadrant. A radiopaque drain is also seen. There are numerous dilated gas-filled segments of small bowel and the stomach is distended by gas as well. There are also multiple air-fluid levels on the erect film. This appearance is nonspecific but could be related to a post operative ileus. The possibility that there is a distal small bowel obstruction should also be considered. There is no mass or organomegaly identified. There is no sign of a pneumoperitoneum. IMPRESSION: In the interval since the prior study, the patient has undergone a surgical procedure. The dilated gas and fluid-filled segments of small bowel are nonspecific but may relate to a post operative ileus. A distal small bowel obstruction should also be considered. These results were called to Dr. Bill Montana. Dictated by: Dictated on workstation # [id number]
--- NOTE | 2020-10-09 11:30 | Physical Therapy Daily Note ---
PT Daily Note-Current Subjective Patient continues to c/o abdominal cramping. Just completed OT session. Pain Numeric Pain Scale: 8 Location: Lower Location Body Site: Abdomen Pain Description: Pressure, Cramping Mental Status Patient Orientation: Normal For Age Attachments: Colostomy/Ileostomy, Drains Transfers SCALE: Activities may be completed with or without assistive devices. 7-Xsfdoggkgg-mdmvkmo completes the activity by him/herself with no assistance from a helper. 5-Set-up or Clean-up Assistance-helper sets up or cleans up; patient completes activity. [place] assists only prior to or following the activity. 4-Supervision or Touching Assistance-helper provides verbal cues and/or touching/steadying and/or contact guard assistance as patient completes activ ity. Assistance may be provided throughout the activity or intermittently. 3-Partial/Moderate Assistance-helper does LESS THAN HALF the effort. [place] lifts, holds or supports trunk or limbs, but provides less than half the effort. 2-Substantial/Maximal Assistance-helper does MORE THAN HALF the effort. [place] lifts or holds trunk or limbs and provides more than half the effort. 7-Tctefuanb-fwdeoo does ALL the effort. Patient does none of the effort to complete the activity. Or, the assistance of 2 or more helpers is required for the patient to complete the activity. If activity was not attempted, code reason: 7-Patient Refused. 9-Not Applicable-not attempted and the patient did not perform the activity before the current illness, exacerbation or injury. 10-Not Attempted due to Environmental Limitations-(lack of equipment, weather restraints, etc.). 88-Not Attempted due to Medical Conditions or Safety Concerns. Lying to Sitting/Side of Bed(Q: 4 (SBA) Sit to Stand (QC): 4 (SBA) Chair/Ysw-al-Pojmc Xfer(QC): 4 (SBA) Weight Bearing Weight Bearing/Tolerated Weight Bearing/Tolerated Gait Training Does the Patient Walk?: Yes Distance: 300' Walk 10 feet (QC): 4 (SBA) Walk 50 ft with 2 Turns(QC): 4 (SBA) Walk 150 ft (QC): 4 (SBA) Gait Assistive Device: FWW extremely slow, steady gait sequence Exercises Seated Therapy Exercises: Ankle pumps, Long arc quads, Hip flexion Seated Reps: 12 (2 sets) Assessment Patient tolerated treatment well and is up in recliner. Patient does have lift chair at home and has difficulty with sit to stand transfers from low surfaces. Patient has been ambulating with nursing staff as well. PT Skilled Nursing Goals Skilled Nursing Goals PT Skilled Nursing Goals Time Frame: Oct 20, 2020 Roll Left & Right (QC): 5 Sit to Lying (QC): 5 Lying-Sitting on Side/Bed(QC): 5 Sit to Stand (QC): 5 Chair/Eqw-rs-Iixte Xfer(QC): 5 Toilet Transfer (QC): 5 Does the Patient Walk: Yes Walk 10 feet (QC): 5 Walk 50ft with 2 Turns (QC): 5 Walk 150 ft (QC): 5 PT Plan Treatment/Plan Treatment Plan: Continue Plan of Care Treatment Plan: Bed Mobility, Education, Functional Activity Nat, Functional Strength, Gait, Safety, Therapeutic Exercise, Transfers Treatment Duration: Oct 20, 2020 Frequency: 6 times per week Estimated Hrs Per Day: .25 hour per day Patient and/or Family Agrees t: Yes Time/GCodes Time In: 1100 Time Out: 1123 Total Billed Treatment Time: 23 Total Billed Treatment 1 visit FA 14 min EX 9 min ALEJANDRO WILKERSON PT Oct 09, 2020 11:30
[2020-10-09 12:47] LABS: CLARITY,URINE CLEAR; COLOR,URINE YELLOW; GLUCOSE, URINE (UA) NEGATIVE (NEGATIVE); KETONES,URINE 2+ (NEGATIVE); LEUKOCYTE ESTERASE ,URINE TRACE (NEGATIVE); NITRITE,URINE NEGATIVE (NEGATIVE); PROTEIN,URINE TRACE (NEGATIVE)
[2020-10-09 12:58] LABS: BACTERIA,URINE TRACE /HPF; BILIRUBIN,URINE 2+ (NEGATIVE); WBC,URINE 50-100 /HPF
--- NOTE | 2020-10-09 14:55 | Physician Query Clarification ---
Physician Query-General Query to Physician: The medical record reflects the following clinical evidence: Clinical Indicators: Admission H/H 7.2/, decreased to 5.3/17, Passing blood clots through colostomy prior to surgery, EBL approx 150 mls Risk Factor(s): Previous abdominal surgery, "Malignant neoplastic disease of the rectum" GI bleed Treatment: 2 units LR RBC's, H/H monitoring, 1. Acute posthemorrhagic anemia 2. Other explanation of clinical findings 3. Unable to determine (no explanation for clinical findings) Please clarify and document your clinical opinion in the progress notes and dis charge summary including the definitive and/or presumptive diagnosis, (suspected or probable), related to the above clinical findings. Please include clinical findings supporting your diagnosis. Rachel Rubi MSN, RN [phone] [email or web address] PHYSICIAN RESPONSE: Based on the clinical findings in the record, please respond to the query above on this document as an addendum. Physician Response: #2 Physician Response Pt had anemia and did lose some blood during the case; which most likely caused her to drop to 5.3. However, after that she never received any more blood and if she had been 14 and dropped to 12; nothing would have been said. Therefore, she did have anemia, she did lose some blood but I would not characterize this as Acute Postoperative Hemorrhagic anemia. If you have questions please contact: System Configuration Specialist: Ext: Thank you for your time and cooperation. Clinical Human Resources Office Assistant/System Configuration Specialist This is a permanent part of the medical record RACHEL RUBI Oct 09, 2020 14:55 JEANETTE MAN DO Oct 11, 2020 16:39
[2020-10-09] MEDS: ENOXAPARIN 40 MG/0.4 ML (LOVENOX) SYR SC SCH (15:06)
[2020-10-09 15:56] VITALS: BP 134/75
[2020-10-10 00:03] VITALS: BP 151/92
[2020-10-10] MEDS: ACETAMINOPHEN 500 MG TAB (TYLENOL) PO SCH ×4 (06:26→21:35)
[2020-10-10 08:00] VITALS: BP 124/68
[2020-10-10] MEDS: PANTOPRAZOLE 40 MG (PROTONIX) VIAL IVP SCH (09:17)
--- NOTE | 2020-10-10 10:08 | Physical Therapy Daily Note ---
PT Daily Note-Current Subjective Patient in bed pre tx, agrees to PT, has no complaints of pain. Appearance Patient in recliner post tx with nurse call, phone, tray, all needs met. Mental Status Patient Orientation: Person, Place, Situation Transfers SCALE: Activities may be completed with or without assistive devices. 3-Ixhuqnyctv-ccawdrm completes the activity by him/herself with no assistance from a helper. 5-Set-up or Clean-up Assistance-helper sets up or cleans up; patient completes activity. [place] assists only prior to or following the activity. 4-Supervision or Touching Assistance-helper provides verbal cues and/or touching /steadying and/or contact guard assistance as patient completes activity. Assistance may be provided throughout the activity or intermittently. 3-Partial/Moderate Assistance-helper does LESS THAN HALF the effort. [place] lifts, holds or supports trunk or limbs, but provides less than half the effort. 2-Substantial/Maximal Assistance-helper does MORE THAN HALF the effort. [place] lifts or holds trunk or limbs and provides more than half the effort. 3-Ovckmhcsb-vtqypc does ALL the effort. Patient does none of the effort to complete the activity. Or, the assistance of 2 or more helpers is required for the patient to complete the activity. If activity was not attempted, code reason: 7-Patient Refused. 9-Not Applicable-not attempted and the patient did not perform the activity before the current illness, exacerbation or injury. 10-Not Attempted due to Environmental Limitations-(lack of equipment, weather restraints, etc.). 88-Not Attempted due to Medical Conditions or Safety Concerns. Roll Left & Right (QC): 5 Lying to Sitting/Side of Bed(Q: 5 Sit to Stand (QC): 6 Patient had some difficulty with supine to sit but was able to do it with only setup. Weight Bearing Weight Bearing/Tolerated Weight Bearing/Tolerated Gait Training Does the Patient Walk?: Yes Distance: 500' Walk 10 feet (QC): 6 Walk 50 ft with 2 Turns(QC): 6 Walk 150 ft (QC): 6 Gait Assistive Device: FWW independent ambulation, slow but steady Treatments transfers, ambulation Assessment Current Status: Fair Progress improving endurance, patient states she has been performing her LE exercises every hour. PT Rn Mobile Goals Detention Goals PT Rn Mobile Goals Time Frame: Oct 20, 2020 Roll Left & Right (QC): 5 Sit to Lying (QC): 5 Lying-Sitting on Side/Bed(QC): 5 Sit to Stand (QC): 5 Chair/Dpg-ix-Tukuu Xfer(QC): 5 Toilet Transfer (QC): 5 Does the Patient Walk: Yes Walk 10 feet (QC): 5 Walk 50ft with 2 Turns (QC): 5 Walk 150 ft (QC): 5 PT Plan Problem List Problem List: Activity Tolerance, Functional Strength, Safety, Balance, Gait, Transfer Treatment/Plan Treatment Plan: Continue Plan of Care Treatment Plan: Bed Mobility, Education, Functional Activity Nat, Functional Strength, Gait, Safety, Therapeutic Exercise, Transfers Treatment Duration: Oct 20, 2020 Frequency: 6 times per week Estimated Hrs Per Day: .25 hour per day Patient and/or Family Agrees t: Yes Safety Risks/Education Patient Education: Gait Training, Transfer Techniques, Correct Positioning, Safety Issues Teaching Recipient: Patient Teaching Methods: Demonstration, Discussion Response to Teaching: Reinforcement Needed Time/GCodes Time In: 936 Time Out: 951 Total Billed Treatment Time: 15 Total Billed Treatment 1 visit GT 15' STEPHANIE CASTILLO PT Oct 10, 2020 10:08
[2020-10-10] MEDS: HYDROcodone/APAP 7.5 MG/325 MG (LORTAB, LORCET PLUS) TABLET PO PRN ×2 (10:36→19:00)
--- NOTE | 2020-10-10 11:21 | Occupational Ther Daily Note ---
OT Current Status-Daily Note Subjective Pt alert, sitting in recliner. Pt distressed due to issues with medical supplier. Pt agrees to therapy. Wanting to talk to wound care, texted wound care to alert of pt's wants. Mental Status/Objective Patient Orientation: Person, Place, Time, Situation Attachments: IV ADL-Treatment Therapy Code Descriptions/Definitions Functional [place] Measure: 0=Not Assessed/NA 4=Minimal Assistance 1=Total Assistance 5=Supervision or Setup 2=Maximal Assistance 6=Modified [place] 3=Moderate Assistance 7=Complete IndependenceSCALE: Activities may be completed with or without assistive devices. 3-Jwnjyjzdup-rmdketv completes the activity by him/herself with no assistance from a helper. 5-Set-up or Clean-up Assistance-helper sets up or cleans up; patient completes activity. [place] assists only prior to or following the activity. 4-Supervision or Touching Assistance-helper provides verbal cues and/or touching/steadying and/or contact guard assistance as patient completes activity. Assistance may be provided throughout the activity or intermittently. 3-Partial/Moderate Assistance-helper does LESS THAN HALF the effort. [place] lifts, holds or supports trunk or limbs, but provides less than half the effort. 2-Substantial/Maximal Assistance-helper does MORE THAN HALF the effort. [place] lifts or holds trunk or limbs and provides more than half the effort. 0-Tbswjqeyi-atcyso does ALL the effort. Patient does none of the effort to complete the activity. Or, the assistance of 2 or more helpers is required for the patient to complete the activity. If activity was not attempted, code reason: 7-Patient Refused. 9-Not Applicable-not attempted and the patient did not perform the activity before the current illness, exacerbation or injury. 10-Not Attempted due to Environmental Limitations-(lack of equipment, weather restraints, etc.). 88-Not Attempted due to Medical Conditions or Safety Concerns. Other Treatment Discussed AE for lower body equipment with pt and how useful she feels it is. Discussed medical supplier issues and pt wanted to discuss with wound care, alerted wound care. HEP and medium resistance theraband given to pt to increase B UE strength for daily functional tasks. Skilled instruction and modification for correct technique required for exercises. Pt able to complete 10 reps of 5 exercises. Pt educated on how many times per day to complete tasks, at least 3. After session, pt sitting in recliner with call light/phone in reach. All needs met in room. OT Short Term Goals Short Term Goals Time Frame: Oct 15, 2020 Eatin Oral hygiene: 6 Toileting hygiene: 3 Shower/bathe self: 3 Upper body dressin Lower body dressin Putting on/taking off footwear: 3 OT Fpc Goals Fpc Goals Time Frame: Oct 29, 2020 Eating (QC): 6 Oral Hygiene (QC): 6 Toileting Hygiene (QC): 6 Shower/Bathe Self (QC): 4 Upper Body Dressing (QC): 5 Lower Body Dressing (QC): 5 On/Off Footwear (QC): 5 Additional Goals: 1-Demonstrate ADL Tasks, 2-Verbalize Understanding, 3-I mproveStrength/Nat 1=Demonstrate adherence to instructed precautions during ADL tasks. 2=Patient will verbalize/demonstrate understanding of assistive devices/modifications for ADL. 3=Patient will improve strength/tolerance for activity to enable patient to perform ADL's. OT Education/Plan Problem List/Assessment Assessment: Decreased Activ Tolerance, Decreased UE Strength, Impaired I ADL's Discharge Recommendations Plan/Recommendations: Continue POC Treatment Plan/Plan of Care Patient would benefit from OT for education, treatment and training to promote independence in ADL's, mobility, safety and/or upper extremity function for ADL's. Plan of Care: ADL Retraining, Functional Mobility, UE Funct Exercise/Act Treatment Duration: Oct 29, 2020 Frequency: 5 times per week Estimated Hrs Per Day: .5 hour per day Agreement: Yes Rehab Potential: Good Time/GCodes Start Time: 10:25 Stop Time: 10:48 Total Time Billed (hr/min): 23 Billed Treatment Time 1 visit-FA 1 (15 min) EX (8 min) FABIAN GALARZA Oct 10, 2020 11:20
[2020-10-10] MEDS: ENOXAPARIN 40 MG/0.4 ML (LOVENOX) SYR SC SCH (15:31)
[2020-10-10 16:00] VITALS: BP 113/76
--- NOTE | 2020-10-10 17:13 | Progress Note - Surgery ---
Subjective Time Seen by a Provider: 14:19 Subjective/Events-last exam Pt seen and examined, sitting in chair; only ate about 1/4 of lunch. States she still has cramps, but maybe slightly better than yesterday. Review of Systems General: Fatigue Pulmonary: No Dyspnea, No Cough Cardiovascular: No: Chest Pain, Palpitations Gastrointestinal: Abdominal Pain; No: Nausea, Vomiting Objective Exam Vital Signs Date Time Temp Pulse Resp B/P (MAP) Pulse Ox O2 Delivery O2 Flow Rate FiO2 10/10/20 16:00 35.8 66 18 113/76 (88) 96 Room Air 10/10/20 08:00 36.6 110 18 124/68 (86) 95 Room Air 10/10/20 08:00 Room Air 10/10/20 00:03 36.3 113 18 151/92 (111) 96 Room Air 10/09/20 20:50 Room Air I & O 10/10/20 07:00 Intake Total 1700 ml Output Total 1410 ml Balance 290 ml Capillary Refill : General Appearance: No Apparent Distress HEENT: PERRL/EOMI Respiratory: Lungs Clear, Normal Breath Sounds Cardiovascular: Regular Rate, Rhythm, No Murmur Gastrointestinal: normal bowel sounds, soft, tenderness (diffusely), other (inc isions c/d/i, DEEPAK with serous output, ostomy pink and fxning) Neurologic/Psychiatric: Alert, Oriented x3 Results Lab Microbiology 10/09/20 Urine Culture - Preliminary, Resulted Gram Negative Casey Gram Negative Casey#2 See Comments 10/03/20 MRSA Screen - Final, Complete MRSA not isolated Assessment/Plan Assessment/Plan Assessment/Plan s/p completion colectomy and parastomal hernia repair with mesh. -- encourage ambulation and IS use, advance diet as tolerated. Will add protein shakes Abdominal cramping - mild ileus and ??UTI waiting on microbiology and sensitivity Pt does not meet criteria for ARU, will plan on HH. JEANETTE MAN DO Oct 10, 2020 17:13
[2020-10-10] MEDS: ONDANSETRON 4 MG/2 ML (SDV) Z0FRAN IVP PRN (19:00)
[2020-10-11 00:29] VITALS: BP 116/66
[2020-10-11] MEDS: HYDROcodone/APAP 7.5 MG/325 MG (LORTAB, LORCET PLUS) TABLET PO PRN ×2 (02:29→06:20)
[2020-10-11] MEDS: ACETAMINOPHEN 500 MG TAB (TYLENOL) PO SCH ×2 (06:20→14:43)
[2020-10-11 08:00] VITALS: BP 115/78
[2020-10-11] MEDS: PANTOPRAZOLE 40 MG (PROTONIX) VIAL IVP SCH (09:40)
--- NOTE | 2020-10-11 10:24 | Physical Therapy Daily Note ---
PT Daily Note-Current Subjective Patient agrees to PT. Continues to c/o abdominal cramping. Mental Status Patient Orientation: Normal For Age Transfers SCALE: Activities may be completed with or without assistive devices. 3-Ymyookhhxv-hluxrhv completes the activity by him/herself with no assistance from a helper. 5-Set-up or Clean-up Assistance-helper sets up or cleans up; patient completes activity. [place] assists only prior to or following the activity. 4-Supervision or Touching Assistance-helper provides verbal cues and/or touching/steadying and/or contact guard assistance as patient completes activity. Assistance may be provided throughout the activity or intermittently. 3-Partial/Moderate Assistance-helper does LESS THAN HALF the effort. [place] lifts, holds or supports trunk or limbs, but provides less than half the effort. 2-Substantial/Maximal Assistance-helper does MORE THAN HALF the effort. [place] lifts or holds trunk or limbs and provides more than half the effort. 1-Bchlejitm-tqckph does ALL the effort. Patient does none of the effort to complete the activity. Or, the assistance of 2 or more helpers is required for the patient to complete the activity. If activity was not attempted, code reason: 7-Patient Refused. 9-Not Applicable-not attempted and the patient did not perform the activity before the current illness, exacerbation or injury. 10-Not Attempted due to Environmental Limitations-(lack of equipment, weather restraints, etc.). 88-Not Attempted due to Medical Conditions or Safety Concerns. Lying to Sitting/Side of Bed(Q: 6 Sit to Stand (QC): 6 Chair/Lda-pg-Itbsy Xfer(QC): 6 Weight Bearing Weight Bearing/Tolerated Weight Bearing/Tolerated Gait Training Does the Patient Walk?: Yes Distance: 600' Walk 10 feet (QC): 6 Walk 50 ft with 2 Turns(QC): 6 Walk 150 ft (QC): 6 Gait Assistive Device: FWW very slow shelley/safe and functional with no deviation. Assessment Patient is up in recliner with needs met. Plan dismissal to home this week per report. PT Correction Goals Correction Goals PT Industrial Cafeteria Manager Goals Time Frame: Oct 20, 2020 Roll Left & Right (QC): 5 Sit to Lying (QC): 5 Lying-Sitting on Side/Bed(QC): 5 Sit to Stand (QC): 5 Chair/Hvq-vy-Vomuj Xfer(QC): 5 Toilet Transfer (QC): 5 Does the Patient Walk: Yes Walk 10 feet (QC): 5 Walk 50ft with 2 Turns (QC): 5 Walk 150 ft (QC): 5 PT Plan Treatment/Plan Treatment Plan: Continue Plan of Care Treatment Plan: Bed Mobility, Education, Functional Activity Nat, Functional Strength, Gait, Safety, Therapeutic Exercise, Transfers Treatment Duration: Oct 20, 2020 Frequency: 6 times per week Estimated Hrs Per Day: .25 hour per day Patient and/or Family Agrees t: Yes Time/GCodes Time In: 922 Time Out: 945 Total Billed Treatment Time: 23 Total Billed Treatment 1 visit FA x 2 23 min ALEJANDRO WILKERSON PT Oct 11, 2020 10:24
[2020-10-11] MEDS ORDERED: CIPR-225 PO (13:11)
--- NOTE | 2020-10-11 13:12 | Progress Note - Surgery ---
Subjective Time Seen by a Provider: 10:22 Subjective/Events-last exam Pt seen and examined, doing better today than yesterday. Still has mild abdominal cramping. Review of Systems General: Fatigue Pulmonary: No Dyspnea, No Cough Cardiovascular: No: Chest Pain, Palpitations Gastrointestinal: Abdominal Pain; No: Nausea, Vomiting Objective Exam Vital Signs Date Time Temp Pulse Resp B/P (MAP) Pulse Ox O2 Delivery O2 Flow Rate FiO2 10/11/20 08:00 36.2 95 18 115/78 (90) 97 Room Air 10/11/20 08:00 Room Air 10/11/20 00:29 36.2 95 20 116/66 (83) 100 Room Air 10/10/20 19:30 Room Air 10/10/20 16:00 35.8 66 18 113/76 (88) 96 Room Air I & O 10/11/20 07:00 Intake Total 1930 ml Output Total 800 ml Balance 1130 ml Capillary Refill : General Appearance: No Apparent Distress HEENT: PERRL/EOMI Respiratory: Lungs Clear, Normal Breath Sounds Cardiovascular: Regular Rate, Rhythm, No Murmur Gastrointestinal: normal bowel sounds, soft, tenderness (diffusely), other (incisions c/d/i, DEEPAK with serous output, ostomy pink and fxning) Neurologic/Psychiatric: Alert, Oriented x3 Results Lab Microbiology 10/09/20 Urine Culture - Preliminary, Resulted Gram Negative Casey Gram Negative Casey#2 10/03/20 MRSA Screen - Final, Complete MRSA not isolated Assessment/Plan Assessment/Plan Assessment/Plan s/p completion colectomy and parastomal hernia repair with mesh. -- encourage ambulation and IS use, advance diet as tolerated. Will add protein shakes Abdominal cramping - mild ileus and ??UTI waiting on microbiology and sensitivity Pt does not meet criteria for ARU, will plan on HH. JEANETTE MAN DO Oct 11, 2020 13:12
--- NOTE | 2020-10-11 13:13 | Discharge Inst-Surgical ---
Discharge Inst-Surgical Depart Medication/Instructions New, Converted or Re-Newed RX: Transmitted to Pharmacy Patient Instructions Follow up Appt: Make appointment for 1 week. [phone] Instructions: No lifting greater than 20 pounds. No strenuous activity. May shower in 24 hours, no tub bath or soaking. Use incentive spirometer at home as directed. No Smoking Skin/Wound Care: May remove bandages in am. You need to leave the Dermabond on incision it will fall off on it's own. Symptoms to Report: Appetite Changes, Extremity Discoloration, Numbness/Tingling, Swelling Increased, Bleeding Excessive, Eyesight Changes, Pain Increased, Urine Color Change, Constipation(Persistent), Fever over 101 degree F, Pain/Pressure in chest, Urinating Difficulty, Cough Up/Vomit Blood, Heart Beat Irreg/Pounding, Pain/Pressure in jaw, Cramps in feet or legs, Lightheadedness, Pain/Pressure in shoulder, Diarrhea(Persistent), Memory Changes Suddenly, Questions/Concerns, Weight gain consecutive days, Dizziness/Fainting, Nausea/Vomiting, Shortness of Breath, Weight gain over 2 pounds If questions or concerns contact your physician Or seek help at emergency department. Activity Activity as Tolerated: Yes Activity Instructions: Avoid Stress to Incision Driving Instructions: You May Drive Diet Discharge Diet: No Restrictions (increase protein intake) Diet After 24 Hours: Clear Liquid if Nauseous If Any Problems/Questions/Issu: Contact Your Physician, Go to Emergency Room Skin/Wound Care Infection Signs and Symptoms: Increased Redness, Foul Odor of Wound, Increased Drainage, Skin Itchy or Has a Rash, Increased Swelling, Temperature Above 101 F Bathing Instructions: Shower Stitches/Eunice/Dermabond Dis: Care of JEANETTE Lugo DO Oct 11, 2020 13:13
--- NOTE | 2020-10-11 13:15 | D/C HH Face to Face Order ---
D/C Face to Face Orders Instructions for Patient Via [facility], Patient Instructions/FollowUp: Follow up in my office in one week. Physician to follow Patient: Dr. [place] Discharge Diet for Home: No Restrictions (increased protein) Patient Data-Allergies,Ht & Wt Patient Allergies: Coded Allergies: morphine (Verified Allergy, Severe, RESP DISTRESS/BURNING AT IV SITE, 10/03/20) PER RN ALFIE PATIENT ABLE TO TAKE LORTAB Sulfa (Sulfonamide Antibiotics) (Verified Allergy, Mild, HIVES, 10/03/20) ampicillin (Verified Allergy, Mild, HIVES, Pt has rec. Ceftriaxone in the past, 10/03/20) latex (Verified Allergy, Mild, BLISTERS, 10/03/20) Height (Feet): 5 Height (Inches): 8.00 Weight (Pounds): 239 Weight (Ounces): 5.0 Home Health Need/Face to Face Date of Face to Face: Oct 11, 2020 Clinical Findings: Generalized weakness and fatigue, Muscle weakness, Unsteady gait I have seen Pt istn-[id number]: Yes Discharged To: Home Diagnosis/Conditions: Weakness, Fatigue Ileostomy Malnutrition Patient is Homebound due to: [place] fall risk due to instabilty Homebound Status Due to the above stated illness, injury or surgical procedure (medical condition or diagnosis) and associated clinical findings, the patient is homebound because of his/her inability to leave home except with aid of a supportive device and/or person AND leaving the home requires a considerable and taxing effort or is medically contraindicated. Pt req the following assistanc: Aid of another person Home Health Nursing Orders Home Health Services Order: Nursing Services, Physical Therapy-Evaluate & Treat Home Health Infusion Therapy Line Start Date: Oct 03, 2020 Therapy Orders Therapy Orders: Physical Therapy Therapy Specific Orders: Increase strength/endurance Certify Stmt I certify that this patient is under my care and that I, a nurse practitioner or a physician; a front office assistant working with me, had a face to face encounter that - meets the physician face to face encounter requirements with this patient as dated. JEANETTE [place] DO Oct 11, 2020 13:15
[2020-10-11] MEDS: ENOXAPARIN 40 MG/0.4 ML (LOVENOX) SYR SC SCH (14:43)
== END 2020-10-11 16:00 | disposition home health service (06) | DRG 330 ==
LOC: 4TH 06:38 → SURG 06:39 → 4TH 14:44
PROVIDERS: ADMIT Surgery; ATTEND Surgery
PROC: 0WUF4JZ Supplement Abdominal Wall with Synthetic Substitute, Percutaneous Endoscopic Approach (ICD-10-PCS; 2020-10-03)
PROC: 0DBG4ZZ Excision of Left Large Intestine, Percutaneous Endoscopic Approach (ICD-10-PCS; principal; 2020-10-03 08:17)
DX: K43.5 Parastomal hernia without obstruction or gangrene (principal); K94.11 Enterostomy hemorrhage; E46 Unspecified protein-calorie malnutrition; D64.9 Anemia, unspecified; E66.01 Morbid (severe) obesity due to excess calories; Z68.35 Body mass index [BMI] 35.0-35.9, adult; Z87.891 Personal history of nicotine dependence; Z79.2 Long term (current) use of antibiotics; Z79.52 Long term (current) use of systemic steroids; Z88.2 Allergy status to sulfonamides; Z88.6 Allergy status to analgesic agent; Z91.040 Latex allergy status
CPT/HCPCS: 36415; 74022; 80048; 80053; 81000; 85007; 85014; 85018; 85025; 85027; 86850; 86900; 86901; 86920; 87077; 87081; 87088; 88307; 94664

== ENCOUNTER 2021-06-15 17:13 | Emergency (ER) | payer MEDICARE, OTHER ==
[~2021-06-15 17:13] MED LIST changes: +CIPR-225 PO; -MIDAZOLAM 2 MG/2 ML (VERSED) VIAL ONE; -ONDANSETRON 4 MG/2 ML (SDV) Z0FRAN ONE; -ROCURONIUM 10 MG/ML 5 ML SYRINGE IV ONE; -SEVOFLURANE (ULTANE) 15 ML INHAL SOLN ONE; -fentaNYL INJ 100 MCG/2 ML AMP ONE; -proPOfol 200 MG/20 ML (DIPRIVAN) VIAL IV ONE
[2021-06-15] MEDS ORDERED: NS IV 1000 ML 1,000 ML ONE (17:36)
[2021-06-15 17:43] LABS: BASOPHILS % (AUTO) 1 % (0-10); EOSINOPHILS # (AUTO) 0.1 10^3/uL (0.0-0.3); EOSINOPHILS % (AUTO) 2 % (0-10); HEMATOCRIT 32 % (35-52); HEMOGLOBIN 10.2 g/dL (11.5-16.0); LYMPHOCYTES # (AUTO) 0.5 X 10^3 (1.0-4.0); LYMPHOCYTES % (AUTO) 8 % (12-44); MEAN CORPUSCULAR HEMOGLOBIN 31 pg (25-34); MEAN CORPUSCULAR HGB CONC 32 g/dL (32-36); MEAN CORPUSCULAR VOLUME 98 fL (80-99); MEAN PLATELET VOLUME 10.2 fL (9.0-12.2); MONOCYTES # (AUTO) 0.4 X 10^3 (0.0-1.0); MONOCYTES % (AUTO) 7 % (0-12); NEUTROPHILS # (AUTO) 4.9 X 10^3 (1.8-7.8); NEUTROPHILS % (AUTO) 82 % (42-75); PLATELET COUNT 214 10^3/uL (130-400); WHITE BLOOD COUNT 5.9 10^3/uL (4.3-11.0)
--- NOTE | 2021-06-15 17:51 | ED GI ---
General Chief Complaint: Abdominal/GI Problems Stated Complaint: COLOSTOMY BAG (BLEEDING) Nursing Triage Note: PT REPORTS SHE STARTED HAVING SOME BLOOD IN HER COLOSTOMY BAG AT ABOUT 1230 TODAY. BRIGHT RED BLOOD. SHE DENIES ABD PAIN. Source of Information: Patient History of Present Illness Date Seen by Provider: Jun 15, 2021 Time Seen by Provider: 17:13 Initial Comments 70-year-old female presenting with complaints of blood coming from her colostomy bag. She states that she has had all of her colon removed and it is actually an ileostomy bag. She has had polyps with bleeding in her colon in the past so Dr. Antonio had removed all of her colon. Since he had done that she had not had any problems until today. She denies having any abdominal pain or nausea. She has had no vomiting. She denies any fever, chills, dysuria, cough, co nstipation. She has not been straining or lifting. She does take Plavix and bruises and bleeds easily. She feels like the bleeding has had slowed down and was starting to clot since she started eating some marshmallows at home. Sensibly had not resolved she decided to call 911 and came to the ED to be checked out. Timing/Duration: 4-6 Hours Severity/Quality: Moderate Activities at Onset: None Associated Symptoms: No Back Pain, No Chest Pain, No Diaphoresis, No Fever/Chills, No Fatigue, No Headache, No Heartburn, No Nausea/Vomiting, No Rash, No Shortness of Air, No Swelling/Mass in Abdomen, No Syncope, No Weakness Allergies and Home Medications Allergies Coded Allergies: morphine (Verified Allergy, Severe, RESP DISTRESS/BURNING AT IV SITE, 10/03/20) PER ABDON JUDGE PATIENT ABLE TO TAKE LORTAB Sulfa (Sulfonamide Antibiotics) (Verified Allergy, Mild, HIVES, 10/03/20) ampicillin (Verified Allergy, Mild, HIVES, Pt has rec. Ceftriaxone in the past, 10/03/20) latex (Verified Allergy, Mild, BLISTERS, 10/03/20) Patient Home Medication List Home Medication List Reviewed: Yes Amitriptyline HCl (Amitriptyline HCl) 25 Mg Tablet, 75 MG PO BID, (Reported) Entered as Reported by: CYNDI SHULTZ on 03/04/15 8062 Azathioprine (Imuran) 50 Mg Tablet, 100 MG PO BID, (Reported) Entered as Reported by: CHRISTIANO CRABTREE on 05/17/20 1311 Ciprofloxacin HCl (Cipro) 500 Mg Tablet, 500 MG PO BID Prescribed by: JEANETTE MAN on 10/11/20 1311 Clopidogrel Bisulfate (Plavix) 75 Mg Tablet, 75 MG PO DAILY, (Reported) Entered as Reported by: ANÍBAL BLANKENSHIP on 12/17/18 1110 Cyclobenzaprine HCl (Cyclobenzaprine HCl) 5 Mg Tablet, 5 MG PO TID PRN for MUSCLE SPASMS, (Reported) Entered as Reported by: CYNDI SHULTZ on 03/04/15 1010 Metoprolol Tartrate (Metoprolol Tartrate) 25 Mg Tablet, 25 MG PO DAILY, (Reported) Entered as Reported by: CYNDI SHULTZ on 03/04/15 1010 Multivit-Min/FA/Lycopene/Lut (Centrum Silver Tablet) 1 Each Tablet, 1 EACH PO DAILY, (Reported) Entered as Reported by: CHRISTIANO CRABTREE on 05/17/20 1311 Pantoprazole Sodium (Pantoprazole Sodium) 40 Mg Tablet.dr, 40 MG PO DAILY, (Reported) Entered as Reported by: ZULEMA SWEENEY on 09/28/20 1046 Prednisone (Prednisone) 5 Mg Tablet, 5-10 MG PO DAILY PRN for RA PAIN, (Reported) Entered as Reported by: CYNDI SHULTZ on 03/04/15 1010 Review of Systems Review of Systems Constitutional: No chills, No fever EENTM: No Symptoms Reported Respiratory: No Symptoms Reported Cardiovascular: No Symptoms Reported Gastrointestinal: See HPI Genitourinary: No Symptoms Reported Musculoskeletal: no symptoms reported Skin: no symptoms reported Psychiatric/Neurological: No Symptoms Reported Endocrine: No Symptoms Reported Past Llafnfm-Taqfei-Zddbpw Hx Patient Social History Tobacco Use?: No Use of E-Cig and/or Vaping dev: No Substance use?: No Alcohol Use?: No Pt feels they are or have been: No Immunizations Up To Date Tetanus Booster (TDap): Unknown First/Initial COVID19 Vaccinat: JULY 2020 Second COVID19 Vaccination Frederick: AUGUST 2020 Third COVID19 Vaccination Date: JULY 2020 Seasonal Allergies Seasonal Allergies: Yes Past Medical History Surgery/Hospitalization HX: Colon polyps, GI bleeding, total colectomy Surgeries: Yes (colostomy) Bowel Surgery, Hysterectomy Respiratory: No (had pneumonia in 05/24) Currently Using CPAP: No Currently Using BIPAP: No Cardiac: Yes Heart Attack, Hypertension Neurological: Yes Stroke Reproductive Disorders: Yes Sexually Transmitted Disease: No HIV/AIDS: No Genitourinary: No Gastrointestinal: Yes (COLECTOMY FOR POLYPS-HAD POST OP BLOOD CLOT/GANGREEN, ) Abdominal Hernia, Gastroesophageal Reflux, Gastrointestinal Bleed, Chronic Diarrhea, Polyps Musculoskeletal: Yes Arthritis, Rheumatoid Arthritis Endocrine: No HEENT: No (GLASSES) Loss of Vision: Bilateral Hearing Impairment: Denies Cancer: Yes Colon What Type of Treatment Did You: Surgical Intervention Psychosocial: No Anxiety Integumentary: Yes (LESIONS REMOVED FROM HANDS AND FACE) Blood Disorders: Yes (Iron Deficiency Anemia) Adverse Reaction/Blood Tranf: No (HAS HAD BLOOD WITH NO REACTION) Family Medical History Abdominal aortic aneurysm Alcoholism G8 BROTHER (22) G8 BROTHER (17) Alzheimer's disease 19 MOTHER (195 2012) Cataracts 19 MOTHER (2010) Deafness or hearing loss 19 MOTHER (HARD OF HEARING ) Dementia 19 MOTHER Diabetes mellitus 19 FATHER 19 MOTHER Drug abuse G8 BROTHER G8 BROTHER Gastroenteritis 19 MOTHER Headache disorder 19 MOTHER G8 BROTHER Hypercholesterolemia G8 SISTER Myocardial infarction 19 FATHER (IN HIS 60) Osteoporosis 19 MOTHER Prostate cancer 19 FATHER Heart Disease, Cancer, Diabetes, GI Disease Physical Exam Vital Signs Vital Signs - First Documented 06/15/21 17:13 Temp 37.3 Pulse 83 Resp 20 B/P (MAP) 154/87 (109) Pulse Ox 100 O2 Delivery Room Air Capillary Refill : Less Than 3 Seconds Height/Weight/BMI Height: 5'8.00" Weight: 239lbs. 5.0oz. 108.115087hm; 35.43 BMI Method:Stated General Appearance: WD/WN, no apparent distress HEENT: PERRL/EOMI, pharynx normal Neck: non-tender, full range of motion, supple, normal inspection Respiratory: chest non-tender, lungs clear, normal breath sounds, no respiratory distress, no accessory muscle use Cardiovascular: normal peripheral pulses, regular rate, rhythm Gastrointestinal: normal bowel sounds, non tender, soft, no pulsatile mass, other (Ileostomy bag present and there is some blood in the bag with some clots at the ileostomy site.) Extremities: normal range of motion, non-tender, normal capillary refill Neurologic/Psychiatric: alert, oriented x 3 Skin: normal color, warm/dry Progress/Results/Core Measures Results/Orders Lab Results Laboratory Tests Test 06/15/21 17:28 Range/Units White Blood Count 5.9 4.3-11.0 10^3/uL Red Blood Count 3.28 L 3.80-5.11 10^6/uL Hemoglobin 10.2 L 11.5-16.0 g/dL Hematocrit 32 L 35-52 % Mean Corpuscular Volume 98 80-99 fL Mean Corpuscular Hemoglobin 31 25-34 pg Mean Corpuscular Hemoglobin Concent 32 32-36 g/dL Red Cell Distribution Width 17.7 H 10.0-14.5 % Platelet Count 214 130-400 10^3/uL Mean Platelet Volume 10.2 9.0-12.2 fL Immature Granulocyte % (Auto) 1 % Neutrophils (%) (Auto) 82 H 42-75 % Lymphocytes (%) (Auto) 8 L 12-44 % Monocytes (%) (Auto) 7 0-12 % Eosinophils (%) (Auto) 2 0-10 % Basophils (%) (Auto) 1 0-10 % Neutrophils # (Auto) 4.9 1.8-7.8 X 10^3 Lymphocytes # (Auto) 0.5 L 1.0-4.0 X 10^3 Monocytes # (Auto) 0.4 0.0-1.0 X 10^3 Eosinophils # (Auto) 0.1 0.0-0.3 10^3/uL Basophils # (Auto) 0.0 0.0-0.1 10^3/uL Immature Granulocyte # (Auto) 0.0 0.0-0.1 10^3/uL Neutrophils % (Manual) 82 % Lymphocytes % (Manual) 13 % Monocytes % (Manual) 4 % Eosinophils % (Manual) 1 % Poikilocytosis MODERATE Anisocytosis MODERATE Prothrombin Time 13.0 12.2-14.7 SEC INR Comment 1.0 0.8-1.4 Activated Partial Thromboplast Time 25 24-35 SEC Sodium Level 140 135-145 MMOL/L Potassium Level 4.0 3.6-5.0 MMOL/L Chloride Level 105 98-107 MMOL/L Carbon Dioxide Level 21 21-32 MMOL/L Anion Gap 14 5-14 MMOL/L Blood Urea Nitrogen 22 H 7-18 MG/DL Creatinine 0.79 0.60-1.30 MG/DL Estimat Glomerular Filtration Rate 80 BUN/Creatinine Ratio 28 Glucose Level 104 70-105 MG/DL Calcium Level 9.1 8.5-10.1 MG/DL Corrected Calcium 9.1 8.5-10.1 MG/DL Total Bilirubin 0.4 0.1-1.0 MG/DL Aspartate Amino Transf (AST/SGOT) 19 5-34 U/L Alanine Aminotransferase (ALT/SGPT) 8 0-55 U/L Alkaline Phosphatase 116 40-136 U/L Total Protein 7.0 6.4-8.2 GM/DL Albumin 4.0 3.2-4.5 GM/DL My Orders Orders - BERNA MOE MD Ns Iv 1000 Ml (Sodium Chloride 0.9%) (06/15/21 17:36) Comprehensive Metabolic Panel (06/15/21 17:40) Ed Iv/Invasive Line Start (06/15/21 17:40) Cbc With Automated Diff (06/15/21 17:40) Protime With Inr (06/15/21 17:40) Partial Thromboplastin Time (06/15/21 17:40) Manual Differential (06/15/21 17:28) Ns Iv 1000 Ml (Sodium Chloride 0.9%) (06/15/21 18:00) Vital Signs/I&O 06/15/21 06/15/21 17:13 19:28 Temp 37.3 Pulse 83 92 Resp 20 18 B/P (MAP) 154/87 (109) 132/86 Pulse Ox 100 98 O2 Delivery Room Air Room Air Blood Pressure Mean: 109 Progress Progress Note #1: Progress Note Check labs and give IV fluids 1 L normal saline for hydration. After the labs are back we will check in with Dr. Man since he happens to be operation agent. As the patient has good vital signs and blood pressure and is not having any abdominal pain will defer radiation for any imaging at this point. Progress Note #2: Progress Note Labs appear stable without acute significant abnormality. Her hemoglobin is anemic at 10.2 but this is still elevated from the 8.6 that she was 8 months ago. Her bleeding has stopped and she is having normal stool coming out of the ileostomy. Counseled to hold her Plavix for the next 1 to 2 days and then restarted it every other day. Avoid taking NSAIDs along with the Plavix. Dis cussed with Dr. Man and he agreed about those recommendations and to have the patient call him on Thursday about being followed up. Departure Impression Primary Impression: GI bleed Qualified Codes: K92.2 - Gastrointestinal hemorrhage, unspecified Disposition: HOME, SELF-CARE Condition: Stable Departure-Patient Inst. Decision time for Depature: 19:18 Referrals: JEANETTE MAN DO SELFTEVIN MD (PCP/Family) Primary Care Physician Patient Instructions: Gastrointestinal Bleeding (DC) Add. Discharge Instructions: Hold your Plavix for 1 to 2 days. Then restart it at every other day Call Dr. Man on Thursday for follow-up and to check about the bleeding. Avoid using naproxen or Aleve as well as ibuprofen or Advil as these could contribute to bleeding. All discharge instructions reviewed with patient and/or family. Voiced understanding. BERNA MOE MD Jun 15, 2021 17:51
[2021-06-15 17:54] LABS: BILIRUBIN,TOTAL 0.4 MG/DL (0.1-1.0); CALCIUM 9.1 MG/DL (8.5-10.1); CREATININE SERUM 0.79 MG/DL (0.60-1.30)
[2021-06-15] MEDS ORDERED: NS IV 1000 ML 1,000 ML IV SCH (18:00)
[2021-06-15 18:32] LABS: EOSINOPHILS % (MANUAL) 1 %; LYMPHOCYTES % (MANUAL) 13 %; MONOCYTES % (MANUAL) 4 %; NEUTROPHILS % (MANUAL) 82 %
[2021-06-15 18:33] LABS: ANISOCYTOSIS MODERATE; POIKILOCYTOSIS MODERATE
[2021-06-15 19:28] VITALS: BP 132/86
== END 2021-06-15 19:43 | disposition home or self-care (01) ==
LOC: EDUNIT# 17:13 → ER FS 17:14
DX: K92.2 Gastrointestinal hemorrhage, unspecified (principal); D50.9 Iron deficiency anemia, unspecified; I10 Essential (primary) hypertension; I25.2 Old myocardial infarction; K21.9 Gastro-esophageal reflux disease without esophagitis; M06.9 Rheumatoid arthritis, unspecified; Z93.3 Colostomy status; Z91.040 Latex allergy status; Z79.899 Other long term (current) drug therapy
CPT/HCPCS: 36415; 80053; 85007; 85027; 85610; 85730

== ENCOUNTER 2021-06-18 10:47 | Emergency (ER) | payer MEDICARE, OTHER ==
[~2021-06-18] VITALS: Ht 170.1 cm; Wt 80.0 kg
--- NOTE | 2021-06-18 10:56 | ED General ---
General Chief Complaint: Dizziness/Syncope Stated Complaint: NEAR SYNCOPE History of Present Illness Date Seen by Provider: Jun 18, 2021 Time Seen by Provider: 10:51 Initial Comments 70-year-old female sent in due to concern for feeling faint. Patient was seen here 2 days ago because she had some bleeding out of her ileostomy. That has resolved. Patient was just at her primary care provider for a checkup. She reports when it was over there it was really hot and she got kind of faint. She thinks that it was just related to the heat. They were concerned that her blood pressure dropped. Patient reports that upon arrival to the ER she is actually feeling pretty good. Patient denies any fever, chills. She maybe had a little bit of a shortness of breath when she was faint. She denied chest pain. Patient reports that up until that point she is actually been feeling pretty goo d. Allergies and Home Medications Allergies Coded Allergies: morphine (Verified Allergy, Severe, RESP DISTRESS/BURNING AT IV SITE, 10/03/20) PER ABDON JUDGE PATIENT ABLE TO TAKE LORTAB Sulfa (Sulfonamide Antibiotics) (Verified Allergy, Mild, HIVES, 10/03/20) ampicillin (Verified Allergy, Mild, HIVES, Pt has rec. Ceftriaxone in the past, 10/03/20) latex (Verified Allergy, Mild, BLISTERS, 10/03/20) Patient Home Medication List Home Medication List Reviewed: Yes Amitriptyline HCl (Amitriptyline HCl) 25 Mg Tablet, 75 MG PO BID, (Reported) Entered as Reported by: CYNDI SHULTZ on 03/04/15 1035 Azathioprine (Imuran) 50 Mg Tablet, 100 MG PO BID, (Reported) Entered as Reported by: CHRISTIANO CRABTREE on 05/17/20 1311 Ciprofloxacin HCl (Cipro) 500 Mg Tablet, 500 MG PO BID Prescribed by: JEANETTE MAN on 10/11/20 1311 Clopidogrel Bisulfate (Plavix) 75 Mg Tablet, 75 MG PO DAILY, (Reported) Entered as Reported by: ANÍBAL BLANKENSHIP on 12/17/18 1110 Cyclobenzaprine HCl (Cyclobenzaprine HCl) 5 Mg Tablet, 5 MG PO TID PRN for MUS WILIAM SPASMS, (Reported) Entered as Reported by: CYNDI SHULTZ on 03/04/15 1010 Metoprolol Tartrate (Metoprolol Tartrate) 25 Mg Tablet, 25 MG PO DAILY, (Reported) Entered as Reported by: CYNDI SHULTZ on 03/04/15 1010 Multivit-Min/FA/Lycopene/Lut (Centrum Silver Tablet) 1 Each Tablet, 1 EACH PO DAILY, (Reported) Entered as Reported by: CHRISTIANO CRABTREE on 05/17/20 1311 Pantoprazole Sodium (Pantoprazole Sodium) 40 Mg Tablet.dr, 40 MG PO DAILY, (Reported) Entered as Reported by: ZULEMA SWEENEY on 09/28/20 1046 Prednisone (Prednisone) 5 Mg Tablet, 5-10 MG PO DAILY PRN for RA PAIN, (Reported) Entered as Reported by: CYNDI SHULTZ on 03/04/15 1010 Review of Systems Review of Systems Constitutional: see HPI EENTM: no symptoms reported Respiratory: see HPI; No cough Cardiovascular: No chest pain, No palpitations Gastrointestinal: see HPI; No abdominal pain, No nausea, No vomiting Skin: no symptoms reported Psychiatric/Neurological: See HPI Hematologic/Lymphatic: No Symptoms Reported Past Hppyesm-Ubhmce-Rqjpes Hx Immunizations Up To Date Tetanus Booster (TDap): Unknown First/Initial COVID19 Vaccinat: JULY 2020 Second COVID19 Vaccination Frederick: AUGUST 2020 Third COVID19 Vaccination Date: JULY 2020 Seasonal Allergies Seasonal Allergies: Yes Past Medical History Surgery/Hospitalization HX: Colon polyps, GI bleeding, total colectomy Surgeries: Yes (colostomy) Bowel Surgery, Hysterectomy Respiratory: No (had pneumonia in 05/24) Currently Using CPAP: No Currently Using BIPAP: No Cardiac: Yes Heart Attack, Hypertension Neurological: Yes Stroke Reproductive Disorders: Yes Sexually Transmitted Disease: No HIV/AIDS: No Genitourinary: No Gastrointestinal: Yes (COLECTOMY FOR POLYPS-HAD POST OP BLOOD CLOT/GANGREEN, ) Abdominal Hernia, Gastroesophageal Reflux, Gastrointestinal Bleed, Chronic Diarrhea, Polyps Musculoskeletal: Yes Arthritis, Rheumatoid Arthritis Endocrine: No HEENT: No (GLASSES) Loss of Vision: Bilateral Hearing Impairment: Denies Cancer: Yes Colon What Type of Treatment Did You: Surgical Intervention Psychosocial: No Anxiety Integumentary: Yes (LESIONS REMOVED FROM HANDS AND FACE) Blood Disorders: Yes (Iron Deficiency Anemia) Adverse Reaction/Blood Tranf: No (HAS HAD BLOOD WITH NO REACTION) Family Medical History Abdominal aortic aneurysm Alcoholism G8 BROTHER (22) G8 BROTHER (17) Alzheimer's disease 19 MOTHER (195 2012) Cataracts 19 MOTHER (2010) Deafness or hearing loss 19 MOTHER (HARD OF HEARING ) Dementia 19 MOTHER Diabetes mellitus 19 FATHER 19 MOTHER Drug abuse G8 BROTHER G8 BROTHER Gastroenteritis 19 MOTHER Headache disorder 19 MOTHER G8 BROTHER Hypercholesterolemia G8 SISTER Myocardial infarction 19 FATHER (IN HIS 60) Osteoporosis 19 MOTHER Prostate cancer 19 FATHER Heart Disease, Cancer, Diabetes, GI Disease Physical Exam Vital Signs Vital Signs - First Documented 06/18/21 10:52 Temp 35.7 Pulse 62 Resp 15 B/P (MAP) 115/66 (82) Pulse Ox 98 O2 Delivery Room Air Capillary Refill : Height, Weight, BMI Height: 5'8.00" Weight: 239lbs. 5.0oz. 108.518088ty; 35.43 BMI Method:Stated General Appearance: No Apparent Distress, WD/WN HEENT: PERRL/EOMI Neck: Non Tender, Supple Respiratory: Lungs Clear, Normal Breath Sounds Cardiovascular: Regular Rate, Rhythm, No Edema Gastrointestinal: Non Tender, Soft, Other (Ileostomy bag in place with no blood) Extremity: Normal Capillary Refill, Normal Inspection Neurologic/Psychiatric: Alert, Oriented x3, No Motor/Sensory Deficits, Normal Mood/Affect, street photographer II-XII Norm as Tested Skin: Normal Color, Warm/Dry Progress/Results/Core Measures Suspected Sepsis SIRS Temperature: Pulse: Respiratory Rate: Laboratory Tests 06/18/21 10:58: White Blood Count 6.4 Blood Pressure / Mean: Laboratory Tests 06/18/21 10:58: Creatinine 1.04, Platelet Count 216, Total Bilirubin 0.7 Results/Orders Lab Results Laboratory Tests Test 06/18/21 10:58 06/18/21 11:10 Range/Units White Blood Count 6.4 4.3-11.0 10^3/uL Red Blood Count 3.14 L 3.80-5.11 10^6/uL Hemoglobin 9.8 L 11.5-16.0 g/dL Hematocrit 30 L 35-52 % Mean Corpuscular Volume 96 80-99 fL Mean Corpuscular Hemoglobin 31 25-34 pg Mean Corpuscular Hemoglobin Concent 33 32-36 g/dL Red Cell Distribution Width 17.4 H 10.0-14.5 % Platelet Count 216 130-400 10^3/uL Mean Platelet Volume 10.4 9.0-12.2 fL Immature Granulocyte % (Auto) 1 % Neutrophils (%) (Auto) 84 H 42-75 % Lymphocytes (%) (Auto) 8 L 12-44 % Monocytes (%) (Auto) 6 0-12 % Eosinophils (%) (Auto) 2 0-10 % Basophils (%) (Auto) 0 0-10 % Neutrophils # (Auto) 5.4 1.8-7.8 10^3/uL Lymphocytes # (Auto) 0.5 L 1.0-4.0 10^3/uL Monocytes # (Auto) 0.4 0.0-1.0 10^3/uL Eosinophils # (Auto) 0.1 0.0-0.3 10^3/uL Basophils # (Auto) 0.0 0.0-0.1 10^3/uL Immature Granulocyte # (Auto) 0.0 0.0-0.1 10^3/uL Neutrophils % (Manual) 80 % Lymphocytes % (Manual) 8 % Monocytes % (Manual) 4 % Eosinophils % (Manual) 3 % Basophils % (Manual) 1 % Metamyelocytes % 1 % Band Neutrophils 3 % Poikilocytosis SLIGHT Anisocytosis SLIGHT Sodium Level 140 135-145 MMOL/L Potassium Level 4.3 3.6-5.0 MMOL/L Chloride Level 106 98-107 MMOL/L Carbon Dioxide Level 20 L 21-32 MMOL/L Anion Gap 14 5-14 MMOL/L Blood Urea Nitrogen 17 7-18 MG/DL Creatinine 1.04 0.60-1.30 MG/DL Estimat Glomerular Filtration Rate 58 BUN/Creatinine Ratio 16 Glucose Level 125 H 70-105 MG/DL Calcium Level 9.3 8.5-10.1 MG/DL Corrected Calcium 9.3 8.5-10.1 MG/DL Total Bilirubin 0.7 0.1-1.0 MG/DL Aspartate Amino Transf (AST/SGOT) 16 5-34 U/L Alanine Aminotransferase (ALT/SGPT) 6 0-55 U/L Alkaline Phosphatase 93 40-136 U/L Troponin I < 0.30 <0.30 NG/ML Total Protein 6.8 6.4-8.2 GM/DL Albumin 4.0 3.2-4.5 GM/DL Urine Color YELLOW Urine Clarity TURBID Urine pH 5.5 5-9 Urine Specific [place] >=1.030 1.016-1.022 Urine Protein 1+ H NEGATIVE Urine Glucose (UA) NEGATIVE NEGATIVE Urine Ketones NEGATIVE NEGATIVE Urine Nitrite NEGATIVE NEGATIVE Urine Bilirubin 1+ H NEGATIVE Urine Urobilinogen 0.2 < = 1.0 MG/DL Urine Leukocyte Esterase 1+ H NEGATIVE Urine RBC (Auto) NEGATIVE NEGATIVE Urine RBC NONE /HPF Urine WBC 2-5 /HPF Urine Squamous Epithelial Cells 0-2 /HPF Urine Crystals NONE /LPF Urine Bacteria FEW H /HPF Urine Casts PRESENT /LPF Urine Hyaline Casts 2-5 H /LPF Urine Mucus SMALL H /LPF Urine Culture Indicated YES My Orders Orders - ABDULLAHI,KIRK L DO Cbc With Automated Diff (06/18/21 10:59) Comprehensive Metabolic Panel (06/18/21 10:59) Ua Culture If Indicated (06/18/21 10:59) Troponin I Fs (06/18/21 10:59) Ekg Tracing (06/18/21 10:59) Monitor-Rhythm Ecg Trace Only (06/18/21 10:59) Manual Differential (06/18/21 10:58) Ns Iv 1000 Ml (Sodium Chloride 0.9%) (06/18/21 11:55) Urine Culture (06/18/21 11:10) Vital Signs/I&O 06/18/21 10:52 Temp 35.7 Pulse 62 Resp 15 B/P (MAP) 115/66 (82) Pulse Ox 98 O2 Delivery Room Air Capillary Refill : Progress Note : Progress Note Patient symptoms had resolved prior to arrival to the ER. She remained feeling well throughout the stay. She does have a questionable urinary tract infection so we will treat that with Macrobid x3 days. Patient is stable and discharged ECG Initial ECG Impression Date: Jun 18, 2021 Initial ECG Impression Time: 11:06 Initial ECG Rhythm: Normal Sinus Initial ECG Intervals: Normal Initial ECG Impression: Normal Departure Impression Primary Impression: Mild dehydration Additional Impressions: Near syncope Acute cystitis Qualified Codes: N30.00 - Acute cystitis without hematuria Disposition: HOME, SELF-CARE Condition: Stable Departure-Patient Inst. Referrals: SELF,TEVIN MOSHER (PCP/Family) Primary Care Physician Patient Instructions: Near Fainting, Dehydration, Adult ED Add. Discharge Instructions: Follow-up with your primary care provider as needed All discharge instructions reviewed with patient and/or family. Voiced understanding. Scripts Nitrofurantoin Macrocrystal (Nitrofurantoin) 100 Mg Capsule 100 MG PO BID, #6 CAP 0 Refills Prov: KIRK ABDULLAHI DO 06/18/21 KIRK ABDULLAHI DO Jun 18, 2021 10:55
[2021-06-18 11:05] LABS: BASOPHILS % (AUTO) 0 % (0-10); EOSINOPHILS # (AUTO) 0.1 10^3/uL (0.0-0.3); EOSINOPHILS % (AUTO) 2 % (0-10); HEMATOCRIT 30 % (35-52); HEMOGLOBIN 9.8 g/dL (11.5-16.0); LYMPHOCYTES # (AUTO) 0.5 10^3/uL (1.0-4.0); LYMPHOCYTES % (AUTO) 8 % (12-44); MEAN CORPUSCULAR HEMOGLOBIN 31 pg (25-34); MEAN CORPUSCULAR HGB CONC 33 g/dL (32-36); MEAN CORPUSCULAR VOLUME 96 fL (80-99); MEAN PLATELET VOLUME 10.4 fL (9.0-12.2); MONOCYTES # (AUTO) 0.4 10^3/uL (0.0-1.0); MONOCYTES % (AUTO) 6 % (0-12); NEUTROPHILS # (AUTO) 5.4 10^3/uL (1.8-7.8); NEUTROPHILS % (AUTO) 84 % (42-75); PLATELET COUNT 216 10^3/uL (130-400); WHITE BLOOD COUNT 6.4 10^3/uL (4.3-11.0)
[2021-06-18 11:29] LABS: CLARITY,URINE TURBID; COLOR,URINE YELLOW; GLUCOSE, URINE (UA) NEGATIVE (NEGATIVE); KETONES,URINE NEGATIVE (NEGATIVE); LEUKOCYTE ESTERASE ,URINE 1+ (NEGATIVE); NITRITE,URINE NEGATIVE (NEGATIVE); PH,URINE 5.5 (5-9); PROTEIN,URINE 1+ (NEGATIVE)
[2021-06-18 11:37] LABS: ALANINE AMINOTRANSFERASE 6 U/L (0-55); ALKALINE PHOSPHATASE 93 U/L (40-136); BILIRUBIN,TOTAL 0.7 MG/DL (0.1-1.0); BUN/CREATININE RATIO 16; CALCIUM 9.3 MG/DL (8.5-10.1); CARBON DIOXIDE 20 MMOL/L (21-32); CHLORIDE 106 MMOL/L (98-107); CREATININE SERUM 1.04 MG/DL (0.60-1.30); GFR ESTIMATED 58; GLUCOSE 125 MG/DL (70-105); POTASSIUM 4.3 MMOL/L (3.6-5.0); SODIUM 140 MMOL/L (135-145); TOTAL PROTEIN 6.8 GM/DL (6.4-8.2)
[2021-06-18] MEDS ORDERED: NS IV 1000 ML 1,000 ML IV STA (11:55)
[2021-06-18 12:01] LABS: BACTERIA,URINE FEW /HPF; BILIRUBIN,URINE 1+ (NEGATIVE); SQUAMOUS EPITHELIAL CELL,UR 0-2 /HPF
[2021-06-18 12:19] LABS: ANISOCYTOSIS SLIGHT; BAND NEUTROPHILS 3 %; BASOPHILS % (MANUAL) 1 %; EOSINOPHILS % (MANUAL) 3 %; LYMPHOCYTES % (MANUAL) 8 %; METAMYELOCYTES % 1 %; MONOCYTES % (MANUAL) 4 %; NEUTROPHILS % (MANUAL) 80 %; POIKILOCYTOSIS SLIGHT
[2021-06-18] MEDS ORDERED: NITR100C PO (12:46)
[2021-06-18 13:02] VITALS: BP 117/68
== END 2021-06-18 12:56 | disposition home or self-care (01) ==
LOC: EDUNIT# 10:47 → ER FS 10:48
DX: R55 Syncope and collapse (principal); E86.0 Dehydration; N30.00 Acute cystitis without hematuria; I10 Essential (primary) hypertension; I25.2 Old myocardial infarction; K21.9 Gastro-esophageal reflux disease without esophagitis; M06.9 Rheumatoid arthritis, unspecified; Z91.040 Latex allergy status; Z88.2 Allergy status to sulfonamides; Z86.73 Personal history of transient ischemic attack (TIA), and cerebral infarction without residual deficits; Z79.52 Long term (current) use of systemic steroids; Z79.899 Other long term (current) drug therapy
CPT/HCPCS: 36415; 80053; 81000; 84484; 85007; 85027; 87077; 87088; 93005